=== PATIENT | female | born 1965 | race Two or more races ===

== ENCOUNTER 2021-01-22 09:44 | Outpatient (REF) | payer MEDICAID, SELFPAY ==
--- NOTE | ~2021-01-22 | MM_ITS ---
EXAMINATION: MM DIAGNOSTIC DIGITAL BREAST TOMOSYNTHESIS, BILATERAL US DIAGNOSTIC ULTRASOUND BREAST, RIGHT CLINICAL INFORMATION: 55-year-old with recent pain posterior outer right breast. Palpable fullness noted at clinical exam. No palpable mass noted by patient. No discharge. Patient notes prior history fibrocystic changes. Due for yearly. The lifetime risk of breast cancer based on the Tyrer-Cuzick Model is 5%. COMPARISON: Mammography: 07/13/2019, 07/09/2018, 07/02/2017 TECHNIQUE: Digital breast tomosynthesis is performed in both the craniocaudal and mediolateral oblique views along with computer-aided detection (CAD). Synthesized 2D images are generated from the tomosynthesis. Ultrasound right breast is targeted to the areas of clinical concern 7:00 through 12:00 position. Grayscale imaging and color Doppler are performed without and with harmonics. FINDINGS: The breasts are heterogeneously dense, which may obscure small masses (ACR BI-RADS breast composition Category c). There are no significant masses, abnormal calcifications, or other abnormalities. There is no skin thickening or coarsening of the Chucky's ligaments. There are scattered predominantly dermal calcifications seen bilateral upper inner breasts. Ultrasound demonstrates no cystic or solid mass. There is no duct ectasia: No skin thickening or edema tracking in the soft tissue planes. No hyperemia on color Doppler. Results are discussed with the patient at time of visit, using an pick pulling machine operator. MM/MM tomosynthesis diagnostic BI IMPRESSION: 1. No mammographic evidence of malignancy or inflammatory changes. 2. Unremarkable targeted right breast ultrasound. ASSESSMENT: BI-RADS 2: Benign RECOMMENDATION: 1. Patient's breast pain should be managed based on the clinical impression. If there is still concern for clinically palpable finding, further evaluation may be considered with surgical consult. Decision to proceed with biopsy should be based on clinical grounds and degree of clinical concern. 2. Otherwise, routine annual screening mammography. This patient's information was entered into a reminder system with a target due date for their next mammogram.
== END 2021-01-22 09:45 | disposition home or self-care (01) ==
LOC: HO.MAMMO 09:44
PROVIDERS: Visit Provider Emergency Medicine
DX: N63.11 Unspecified lump in the right breast, upper outer quadrant (principal)
CPT/HCPCS: 76642; 77062; 77066

== ENCOUNTER 2021-03-14 16:27 | Outpatient (REF) | payer MEDICAID, SELFPAY ==
--- NOTE | ~2021-03-14 | XR_ITS ---
EXAMINATION: XR KNEE, LEFT CLINICAL INFORMATION: Pain and swelling COMPARISON: Previous x-ray June 2020 TECHNIQUE: Four views of the left knee. FINDINGS: Bone alignment is normal. No fracture or dislocation is seen. The joint spaces are normal. There is a joint effusion. XR/XR knee LT 4V IMPRESSION: Joint effusion otherwise unremarkable exam.
== END 2021-03-14 16:28 | disposition home or self-care (01) ==
LOC: HO.XRAY 16:27
PROVIDERS: PCP Internal Medicine Geriatric Medicine; Visit Provider Emergency Medicine
DX: M25.562 Pain in left knee (principal); M25.462 Effusion, left knee
CPT/HCPCS: 73564

== ENCOUNTER → 2021-03-30 10:49 | Outpatient (BNVA) | payer MEDICAID, SELFPAY | PROVIDERS: Visit Provider Orthopaedic Surgery | DX: M22.2X2 Patellofemoral disorders, left knee (principal); M17.12 Unilateral primary osteoarthritis, left knee | CPT/HCPCS: 99212 ==

== ENCOUNTER 2021-06-26 10:33 | Outpatient (REF) | payer MEDICAID, SELFPAY ==
[2021-06-26 11:53] LABS: Hematocrit 38.4 % (37-47); Mean Corpuscular HGB Conc 31.3 g/dl (31.0-35.0); Mean Corpuscular Hemoglobin 28.2 pg (27.0-33.0); Mean Corpuscular Volume 90.1 fL (80-98); Platelet Count 226 X10*3/uL (160-400); Red Blood Count 4.26 X10*6/uL (4.20-5.50); Red Cell Distribution Width 12.4 % (11.0-16.0); White Blood Count 6.8 X10*3/uL (4.8-10.8)
[2021-06-26 12:20] LABS: Alanine Aminotransferase 15 U/L (0-31); Albumin Level 4.3 g/dL (3.5-5.0); Alkaline Phosphatase 114 U/L (39-117); Anion Gap 12 (12-20); Aspartate Amino Transferase 12 U/L (5-31); Bilirubin Total 0.5 mg/dL (0.0-1.0); Blood Urea Nitrogen 17 mg/dL (9-16); Calcium 9.8 mg/dL (8.4-10.2); Carbon Dioxide 27 mmol/L (22-29); Chloride 106 mmol/L (96-108); Cholesterol 194 mg/dL; Estimated Glomerular Filt Rate > 60; Glucose Random 96 mg/dL (60-115); HDL Cholesterol 57 mg/dL; LDL Cholesterol Calculated 123 mg/dl; Potassium 4.7 mmol/L (3.3-5.1); Sodium 140 mmol/L (135-145); Total Protein 7.3 g/dL (6.5-8.0); Triglycerides 74 mg/dL
[2021-06-26 12:32] LABS: TSH reflex Free T4 4.11 uIU/mL (0.32-4.0)
[2021-06-26 13:26] LABS: Free T4 (Free Thyroxine) 1.05 ng/dL (0.71-1.85)
== END 2021-06-26 10:34 | disposition home or self-care (01) ==
LOC: HO.LAB 10:33
PROVIDERS: PCP Internal Medicine Geriatric Medicine; Visit Provider Internal Medicine Geriatric Medicine
DX: Z00.00 Encounter for general adult medical examination without abnormal findings (principal); Z13.1 Encounter for screening for diabetes mellitus; Z13.220 Encounter for screening for lipoid disorders; F41.9 Anxiety disorder, unspecified
CPT/HCPCS: 36415; 80053; 80061; 84439; 84443; 85027

== ENCOUNTER 2021-10-15 15:37 | Emergency (ER) | payer MEDICAID, SELFPAY ==
--- NOTE | 2021-10-15 | ECG_ITS ---
Test Reason : CHEST PAIN Blood Pressure : / mmHG Vent. Rate : 054 BPM Atrial Rate : 054 BPM P-R Int : 162 ms QRS Dur : 096 ms QT Int : 418 ms P-R-T Axes : 039 037 012 degrees QTc Int : 396 ms Sinus bradycardia Otherwise normal ECG When compared with ECG of 21-JUL-2020 19:40, No significant change was found Heart rate has decreased Referred By: Generic ED Physician Electronically Signed By:AVI ALONSO MD
[2021-10-15 15:55] VITALS: BP 154/94; BP 157/85; PULSE 55; PULSE 60; RESP 18; O2SAT 100; O2SAT 99; BMI 31.8
== END 2021-10-15 16:45 | disposition left against medical advice (07) ==
PROVIDERS: Emergency Provider Emergency Medicine
DX: R07.9 Chest pain, unspecified (principal); M79.604 Pain in right leg; R00.0 Tachycardia, unspecified
CPT/HCPCS: 93005; 99283

== ENCOUNTER 2022-02-05 11:12 | Outpatient (REF) | payer MEDICAID, SELFPAY ==
--- NOTE | ~2022-02-05 | MM_ITS ---
EXAMINATION: MM SCREENING DIGITAL BREAST TOMOSYNTHESIS, BILATERAL CLINICAL INFORMATION: Screening. Asymptomatic. The lifetime risk of breast cancer based on the Tyrer-Cuzick Model is 5.3%. COMPARISON: Mammography: January 22, 2021 and studies dating back to May 26, 2012 TECHNIQUE: Digital breast tomosynthesis is performed in both the craniocaudal and mediolateral oblique views along with computer-aided detection (CAD). Synthesized 2D images are generated from the tomosynthesis. FINDINGS: The breasts are heterogeneously dense, which may obscure small masses (ACR BI-RADS breast composition Category c). There are no new significant masses, abnormal calcifications, or other abnormalities. There is multiplicity and bilaterality of similar calcifications. MM/MM tomosynthesis screening BI IMPRESSION: There are no significant changes from prior study. ASSESSMENT: BI-RADS 1: Negative RECOMMENDATION: Routine annual mammography screening. This patient's information was entered into a reminder system with a target due date for their next mammogram.
== END 2022-02-05 11:13 | disposition home or self-care (01) ==
LOC: HO.MAMMO 11:12
PROVIDERS: Visit Provider Internal Medicine Geriatric Medicine
DX: Z12.31 Encounter for screening mammogram for malignant neoplasm of breast (principal)
CPT/HCPCS: 77063; 77067

== ENCOUNTER 2022-04-26 15:42 | Outpatient (REF) | payer MEDICAID, SELFPAY ==
--- NOTE | ~2022-04-26 | MR_ITS ---
EXAMINATION: MR KNEE WITHOUT CONTRAST, LEFT CLINICAL INFORMATION: Lateral/anterior left knee pain. Swelling. COMPARISON: Most recent left knee radiographs dated 03/14/2021. TECHNIQUE: MRI of the knee without contrast was performed using routine sequences on a high-field scanner. FINDINGS: MENISCI: Medial Meniscus: Complex tearing of the posterior meniscal body with a medially displaced meniscal flap measuring up to 1.9 cm within the medial meniscotibial recess. Tearing extends to the posterior horn and root where there is a dominant oblique radial component. The posterior root is significantly thickened and irregular. Lateral Meniscus: Intact. LIGAMENTS: Cruciate: Intact. Collateral: Intact. EXTENSOR MECHANISM: Intact. ARTICULAR CARTILAGE/BONE: Patellofemoral Compartment: Patellar median ridge and medial patellar facet articular cartilage thinning with mild signal heterogeneity. Central and medial trochlear articular cartilage signal heterogeneity. Tiny marginal osteophytes. Medial Compartment: Weightbearing articular cartilage thinning and signal heterogeneity with minimal subchondral cystic change. Small marginal osteophytes. Lateral Compartment: Mild articular cartilage thinning with tiny marginal osteophytes. JOINT FLUID AND BURSAE: [id number] joint effusion with synovitis. Trace Conti's cyst. MR/MR knee LT wo con IMPRESSION: 1. Complex tearing of the medial meniscal body with an inferiorly displaced meniscal flap measuring 1.9 cm in AP dimension. Tearing extends to the posterior horn and root with a dominant oblique inner margin radial component. The posterior root is significantly thickened and irregular. 2. [id number] medial as well as mild patellofemoral and lateral compartment osteoarthritis. [id number] joint effusion and trace Conti's cyst with synovitis.
== END 2022-04-26 15:43 | disposition home or self-care (01) ==
LOC: HO.MRI 15:42
PROVIDERS: Visit Provider Emergency Medicine
DX: M25.562 Pain in left knee (principal)
CPT/HCPCS: 73721

== ENCOUNTER → 2022-05-16 14:52 | Outpatient (BNVA) | payer MEDICAID, SELFPAY | PROVIDERS: PCP Internal Medicine Geriatric Medicine; Visit Provider Orthopaedic Surgery | DX: S83.242A Other tear of medial meniscus, current injury, left knee, initial encounter (principal); M17.12 Unilateral primary osteoarthritis, left knee | CPT/HCPCS: 99212 ==

== ENCOUNTER 2022-05-21 17:13 | Outpatient (REF) | payer MEDICAID, SELFPAY ==
--- NOTE | ~2022-05-21 | XR_ITS ---
EXAMINATION: XR RIBS, BILATERAL CLINICAL INFORMATION: Pleurodynia COMPARISON: None TECHNIQUE: 3 views of the bilateral ribs were obtained. FINDINGS: Lungs are clear. No consolidation, pneumothorax, or pleural effusion. The cardiomediastinal silhouette and pulmonary vasculature are normal. Osseous structures are unremarkable. Ribs are intact. No fractures are identified. XR/XR ribs BI min 4V w [id number] IMPRESSION: Unremarkable chest exam. The ribs are unremarkable.
== END 2022-05-21 17:14 | disposition home or self-care (01) ==
LOC: HO.XRAY 17:13
PROVIDERS: Absent Provider Internal Medicine Geriatric Medicine; PCP Internal Medicine Geriatric Medicine; Visit Provider Emergency Medicine
DX: R07.81 Pleurodynia (principal)
CPT/HCPCS: 71111

== ENCOUNTER 2023-04-03 15:41 | Outpatient (REF) | payer MEDICAID, SELFPAY ==
--- NOTE | ~2023-04-03 | XR_ITS ---
EXAMINATION: RIGHT WRIST CLINICAL INFORMATION: Injury 7 days ago COMPARISON: None available. TECHNIQUE: 3 views of the right wrist FINDINGS: There is some minimal sclerotic change in the distal left radius laterally which may be from remote trauma. No acute fracture, swelling or dislocation is seen. XR/XR wrist RT w scaphoid IMPRESSION: No evidence of an acute osseous injury.
== END 2023-04-03 15:42 | disposition home or self-care (01) ==
LOC: HO.HHCX 15:41
PROVIDERS: Visit Provider Registered Nurse
DX: M25.531 Pain in right wrist (principal)
CPT/HCPCS: 73110

== ENCOUNTER → 2023-04-28 11:30 | Outpatient (BNVA) | payer MEDICAID, SELFPAY | PROVIDERS: PCP Internal Medicine Geriatric Medicine; Visit Provider Orthopaedic Surgery | DX: M17.12 Unilateral primary osteoarthritis, left knee (principal); S83.242A Other tear of medial meniscus, current injury, left knee, initial encounter; X58.XXXA Exposure to other specified factors, initial encounter; Y93.9 Activity, unspecified; Y92.9 Unspecified place or not applicable; Y99.9 Unspecified external cause status | CPT/HCPCS: 20610; 99212; J1100 ==

== ENCOUNTER 2023-04-28 13:19 | Emergency (ER) | payer MEDICAID, SELFPAY ==
--- NOTE | 2023-04-28 13:28 | ECG_ITS ---
Test Reason : Weakness Blood Pressure : / mmHG Vent. Rate : 062 BPM Atrial Rate : 062 BPM P-R Int : 152 ms QRS Dur : 094 ms QT Int : 410 ms P-R-T Axes : 038 046 034 degrees QTc Int : 416 ms Normal sinus rhythm Normal ECG When compared to the previous EKG of No significant changes seen Referred By: Hiral Lares Electronically Signed By:TREVIN WU MD
[2023-04-28 13:40] VITALS: BP 143/83; PULSE 117
--- NOTE | 2023-04-28 13:41 | ED.GENADULT ---
HPI - General Adult General Chief complaint: Weakness Stated complaint: WEAK/LATHARGIC POST CORTISONE SHOT Time Seen by Provider: 04/28/23 13:26 Source: patient Mode of arrival: EMS Limitations: no limitations History of Present Illness HPI narrative: Patient comes to the emergency room complaining of weakness, lethargic after she had a joint injection earlier today. Patient complaining of pain in the left knee where she was injected. Denies chest pain or shortness of breath, no nausea vomiting or diarrhea, no dizziness. Related Data Previous Rx's Medication Instructions Recorded ibuprofen 600 mg tablet 600 mg PO Q8H PRN pain #90 tabs 04/28/23 Allergies Allergy/AdvReac Type Severity Reaction Status Date / Time No Known Allergies Allergy Verified 05/16/22 15:04 Review of Systems Review of Systems: Constitutional : No Weight loss, No Fever, No Chills, No Night Sweats, lining of fatigue and generalized malaise that started after a joint injection ENT/Mouth : No Hearing loss, No Ear Pain, No Nasal Congestion, No Sinus Pain, No Hoarseness, No sore throat, No Rhinorrhea, No Swallowing Difficulty Eyes: No Eye Pain, No Swelling, No Redness, No Foreign Body, No Discharge, No Vision Changes Cardiovascular : No Chest Pain, No SOB, No Dyspnea on Exertion, No Orthopnea, No Edema, No Palpitations Respiratory : No Cough, No Sputum, No Wheezing, No Smoke Exposure, No Dyspnea Gastrointestinal : No Nausea, No Vomiting, No Diarrhea, No Constipation, No abdominal Pain, No Hematochezia, No Melena Genitourinary : no irregular bleeding, No Dysuria, No Urinary Frequency, No Hematuria, No Urinary Incontinence, No Urgency, No Flank Pain, No Urinary Flow Changes, No Hesitancy Musculoskeletal : Complaining of left knee pain No Myalgias, No Joint Swelling Skin : No Skin Lesions, No rash Neuro : No Weakness, No Numbness, No Paresthesias, No Loss of Consciousness, No Dizziness, No Headache Psych : No Anxiety/Panic, No Depression, No SI/HI/AH/VH, No Social Issues, Heme/Lymph: No Bruising, No Bleeding,No Lymphadenopathy Endocrine : No Polyuria, No Polydipsia, No Temperature Intolerance PMFSH Past Medical History Medical History Arthritis of left knee Patellofemoral syndrome, left Surgical History H/O breast biopsy History of History of hernia surgery Social History Social History Alcohol intake: never Smoked in Last 30 Days: No Use of substances other than those prescribed or required for medical reasons: No Advance Directives: No Advance Directives Information Provided: Yes Current occupational status: employed Current occupation: right handed Physical Exam ED Vital Signs: Vital Signs - 24 hr 04/28/23 13:40 04/28/23 13:43 04/28/23 13:47 Temperature 97.6 F 98.6 F Pulse Rate 117 H 117 H 117 H Respiratory Rate 18 18 Blood Pressure 143/83 H 143/83 H 143/83 H Pulse Oximetry 97 98 Oxygen Delivery Method Room Air Room Air 04/28/23 13:54 04/28/23 13:55 04/28/23 13:55 Temperature Pulse Rate 93 87 91 Respiratory Rate Blood Pressure 132/72 141/76 H 144/71 H Pulse Oximetry Oxygen Delivery Method BMI result Body Mass Index 31.2 Const Other: Appearance: Alert. Oriented X3. No acute distress. Eyes: Pupils equal, round and reactive to light. ENT: Pharynx normal. Neck: Normal inspection. Neck supple. No lymph nodes noted. No crepitus CVS: Normal heart rate and rhythm. Pulses normal. Normal S1 and S2 Respiratory: No respiratory distress. Breath sounds normal. No Wheezing. No rales Abdomen: Soft and nontender. No rigidity. No distention. Skin: Skin warm and dry. Normal skin color. Normal skin turgor. Extremities: Complaining of left knee joint pain Neuro: Oriented X 3. No motor deficit. No sensory deficit. Moving all extremities. No slurred speech. CN 2 through 12 grossly intact Psych: calm, cooperative Course Course Course Narrative: -I discussed the patient with Dr. Lincoln. Patient received 1 mL of dexamethasone, which is pretty low dose. Patient complained today at the orthopedics office of ongoing left knee pain but only at night. Dr. Lincoln informed manner patient was crying a lot but did not have any pain. -also patient's labs are pending. At this time, no need for imaging -the joint itself looks clean, no erythema, no swelling, no suspicion for septic joint, no concern for joint effusion -after spending some time talking to the patient, I suspect the patient has underlying depression Medical Decision Making Medical Decision Making [facility] Narrative: -all stations labs are normal -orthostatic vitals are normal -I spoke with the patient and her regarding possible depression. The patient and her admitted the patient has been depressed, approximately 2 months ago the patient is brother and she has not been doing well since then. Patient was seen in the clinic 2 times in [facility] for similar issues, no diagnosis were made. Patient returned 2 weeks ago after spending a month's in [facility]. -patient denies suicidal or homicidal ideation -Behavioral Health consult/evaluation was offered, patient the respectfully declined, they will follow up with their primary care physician -steroid induced psychosis is not suspected Lab Data [facility] Lab Attestation statement: I reviewed the patient's lab results. 04/28/23 14:07 04/28/23 14:07 Labs: Lab Results 04/28/23 04/28/23 04/28/23 Range/Units 14:07 14:07 14:07 WBC 6.6 (4.8-10.8) X10*3/uL RBC 4.32 (4.20-5.50) X10*6/uL Hgb 12.2 (12.0-16.0) g/dl Hct 38.9 (37.0-47.0) % MCV 90.0 (80.0-98.0) fL MCH 28.2 (27.0-33.0) pg MCHC 31.4 (31.0-35.0) g/dl RDW 12.1 (11.0-16.0) % Plt Count 233 (160-400) X10*3/uL MPV 12.1 (9.4-12.3) fL Immature Gran % (Auto) 0.3 (0.0-0.4) % Neut % (Auto) 79.2 H (45-73) % Lymph % (Auto) 16.5 L (20-40) % [place] % (Auto) 2.9 (2-11) % Eos % (Auto) 0.5 (0-4) % Baso % (Auto) 0.6 (0-2) % Lymph # (Auto) 1.1 L (1.2-4.9) X10*3/uL [place] # (Auto) 0.2 (0.1-1.2) X10*3/uL Eos # (Auto) 0.0 (0.0-0.4) X10*3/uL Baso # (Auto) 0.0 (0.0-0.2) X10*3/uL Abs Immat Gran (auto) 0.02 (0.00-0.03) X10*3/uL Absolute Neuts (auto) 5.2 (2.0-8.3) x10*3/uL Absolute Nucleated RBC 0.000 (0.0-0.012) X10*3/uL Nucleated RBC % (auto) 0.0 (0.0-0.2) /100WBC Sodium 141 (135-145) mmol/L Potassium 4.7 (3.3-5.1) mmol/L Chloride 107 (96-108) mmol/L Carbon Dioxide 25 (22-29) mmol/L Anion Gap 14 (12-20) BUN 13 (9-16) mg/dL Creatinine 0.87 (0.5-1.4) mg/dL Estim Creat Clear Calc 66.0 Estimated GFR > 60 Random Glucose 105 (60-115) mg/dL Calcium 10.0 (8.4-10.2) mg/dL Total Bilirubin 0.8 (0.0-1.0) mg/dL Direct Bilirubin 0.2 (0.0-0.5) mg/dL AST 16 (5-31) U/L ALT 16 (0-31) U/L Alkaline Phosphatase 112 (39-117) U/L Troponin I High Sens < 2.7 (<3.5-17.0) ng/L Total Protein 7.4 (6.5-8.0) g/dL Albumin 4.4 (3.5-5.0) g/dL Urine Color Urine Appearance Urine pH (5.0-9.0) Ur Specific [place] (1.005-1.025) Urine Protein (Neg-Trace) mg/dL Urine Glucose (UA) (Negative) mg/dL Urine Ketones (Negative) mg/dL Urine Blood (Negative) Urine Nitrite (Negative) Ur Leukocyte Esterase (Negative) Urine Opiates Screen (Not Detect) Urine Fentanyl Screen (Not Detect) Ur Barbiturates Screen (Not Detect) Ur Phencyclidine Scrn (Not Detect) Ur Amphetamines Screen (Not Detect) U Benzodiazepines Scrn (Not Detect) Urine Cocaine Screen (Not Detect) U Marijuana (THC) Screen (Not Detect) 04/28/23 04/28/23 Range/Units 14:07 14:07 WBC (4.8-10.8) X10*3/uL RBC (4.20-5.50) X10*6/uL Hgb (12.0-16.0) g/dl Hct (37.0-47.0) % MCV (80.0-98.0) fL MCH (27.0-33.0) pg MCHC (31.0-35.0) g/dl RDW (11.0-16.0) % Plt Count (160-400) X10*3/uL MPV (9.4-12.3) fL Immature Gran % (Auto) (0.0-0.4) % Neut % (Auto) (45-73) % Lymph % (Auto) (20-40) % [place] % (Auto) (2-11) % Eos % (Auto) (0-4) % Baso % (Auto) (0-2) % Lymph # (Auto) (1.2-4.9) X10*3/uL [place] # (Auto) (0.1-1.2) X10*3/uL Eos # (Auto) (0.0-0.4) X10*3/uL Baso # (Auto) (0.0-0.2) X10*3/uL Abs Immat Gran (auto) (0.00-0.03) X10*3/uL Absolute Neuts (auto) (2.0-8.3) x10*3/uL Absolute Nucleated RBC (0.0-0.012) X10*3/uL Nucleated RBC % (auto) (0.0-0.2) /100WBC Sodium (135-145) mmol/L Potassium (3.3-5.1) mmol/L Chloride (96-108) mmol/L Carbon Dioxide (22-29) mmol/L Anion Gap (12-20) BUN (9-16) mg/dL Creatinine (0.5-1.4) mg/dL Estim Creat Clear Calc Estimated GFR Random Glucose (60-115) mg/dL Calcium (8.4-10.2) mg/dL Total Bilirubin (0.0-1.0) mg/dL Direct Bilirubin (0.0-0.5) mg/dL AST (5-31) U/L ALT (0-31) U/L Alkaline Phosphatase (39-117) U/L Troponin I High Sens (<3.5-17.0) ng/L Total Protein (6.5-8.0) g/dL Albumin (3.5-5.0) g/dL Urine Color Yellow Urine Appearance Clear Urine pH 6.0 (5.0-9.0) Ur Specific [place] 1.010 (1.005-1.025) Urine Protein Negative (Neg-Trace) mg/dL Urine Glucose (UA) Negative (Negative) mg/dL Urine Ketones Negative (Negative) mg/dL Urine Blood Negative (Negative) Urine Nitrite Negative (Negative) Ur Leukocyte Esterase Negative (Negative) Urine Opiates Screen Not Detected (Not Detect) Urine Fentanyl Screen Not Detected (Not Detect) Ur Barbiturates Screen Not Detected (Not Detect) Ur Phencyclidine Scrn Not Detected (Not Detect) Ur Amphetamines Screen Not Detected (Not Detect) U Benzodiazepines Scrn Not Detected (Not Detect) Urine Cocaine Screen Not Detected (Not Detect) U Marijuana (THC) Screen Not Detected (Not Detect) Discharge Plan Discharge Clinical Impression: Chronic pain of left knee, Complicated grieving Patient Disposition: Home, Self-Care Instructions: Arthralgia (ED) Additional Instructions: Please follow-up with your primary care physician tomorrow. If you have any worsening or new symptoms, please return to the emergency room or call 911 Prescriptions: No Action ibuprofen 600 mg tablet 600 mg PO Q8H PRN (Reason: pain) Qty: 90 0RF
[2023-04-28 13:43] VITALS: BP 143/83; PULSE 117; RESP 18; TEMP 36.4; O2SAT 97; BMI 31.2
[2023-04-28 13:47] VITALS: BP 143/83; PULSE 117; RESP 18; TEMP 37; O2SAT 98
--- NOTE | 2023-04-28 13:49 | PC.NURSE ---
Alert and oriented, mostly citizen of [place] speaking, assistant to the vice president used. Patient states that today she recieved a cortisone injection at her [facility] surgeons office in her left knee. States that she was fine and walked out of the office but on the way home in the car with her she passed out. States she doesnt know if she lost consciousness or not. Denies chest pain, sob, or headache, States at the time of event she was nauseous but not right now. States has no med allergies that she is aware of and has cortisone injections before and this has never happened. States dr mixed two medications together so thinks it was the 2nd medication.
[2023-04-28 13:54] VITALS: BP 132/72; PULSE 93
[2023-04-28 13:55] VITALS: BP 141/76; BP 144/71; PULSE 87; PULSE 91
[2023-04-28 14:16] LABS: MANUAL DIFF FLAG NO
[2023-04-28 14:17] LABS: Basophils Percent Auto 0.6 % (0-2); Eosinophils Percent Auto 0.5 % (0-4); Hematocrit 38.9 % (37.0-47.0); Hemoglobin 12.2 g/dl (12.0-16.0); Imm Gran Abs Auto 0.02 X10*3/uL (0.00-0.03); Imm Gran Pct Auto 0.3 % (0.0-0.4); Lymphocytes Absolute Auto 1.1 X10*3/uL (1.2-4.9); Lymphocytes Percent Auto 16.5 % (20-40); Mean Corpuscular HGB Conc 31.4 g/dl (31.0-35.0); Mean Corpuscular Hemoglobin 28.2 pg (27.0-33.0); Mean Platelet Volume 12.1 fL (9.4-12.3); Monocytes Absolute Auto 0.2 X10*3/uL (0.1-1.2); Monocytes Percent Auto 2.9 % (2-11); Neutrophils Absolute Auto 5.2 x10*3/uL (2.0-8.3); Neutrophils Percent Auto 79.2 % (45-73); Platelet Count 233 X10*3/uL (160-400); Red Blood Count 4.32 X10*6/uL (4.20-5.50); Red Cell Distribution Width 12.1 % (11.0-16.0); White Blood Count 6.6 X10*3/uL (4.8-10.8)
[2023-04-28 14:26] LABS: Appearance Urine Clear; Color Urine Yellow; Glucose Urine UA Negative (Negative); Leukocyte Esterase Urine Negative (Negative); Nitrite Urine Negative (Negative); Urine Blood Negative (Negative); Urine Ketones Negative (Negative); Urine Protein Negative (Neg-Trace)
[2023-04-28 14:27] LABS: Amphetamine Screen Urine Not Detected (Not Detect); Barbiturates, Urine Not Detected (Not Detect); Benzodiazepines Screen Urine Not Detected (Not Detect); Cannabinoid Screen Urine Not Detected (Not Detect); Cocaine Screen Urine Not Detected (Not Detect); Fentanyl, urine Not Detected (Not Detect); Opiate Screen Urine Not Detected (Not Detect); Phencyclidine Screen Urine Not Detected (Not Detect)
[2023-04-28 14:37] LABS: Alanine Aminotransferase 16 U/L (0-31); Albumin Level 4.4 g/dL (3.5-5.0); Alkaline Phosphatase 112 U/L (39-117); Anion Gap 14 (12-20); Aspartate Amino Transferase 16 U/L (5-31); Bilirubin Direct 0.2 mg/dL (0.0-0.5); Bilirubin Total 0.8 mg/dL (0.0-1.0); Blood Urea Nitrogen 13 mg/dL (9-16); Carbon Dioxide 25 mmol/L (22-29); Chloride 107 mmol/L (96-108); Estimated Glomerular Filt Rate > 60; Glucose Random 105 mg/dL (60-115); Potassium 4.7 mmol/L (3.3-5.1); Sodium 141 mmol/L (135-145); Total Protein 7.4 g/dL (6.5-8.0)
[2023-04-28 14:40] LABS: Troponin-I High Sensitivity < 2.7 ng/L (<3.5-17.0)
--- NOTE | 2023-04-28 14:59 | PC.NURSE ---
Reviewed discharge instructions with patient and . States she is feeling better and is able to ambulate.
== END 2023-04-28 14:59 | disposition home or self-care (01) ==
PROVIDERS: Emergency Provider Emergency Medicine
DX: M25.562 Pain in left knee (principal); G89.29 Other chronic pain; R53.83 Other fatigue; F32.A Depression, unspecified
CPT/HCPCS: 36415; 80048; 80076; 80307; 81003; 84484; 85025; 93005; 99283; 99284

== ENCOUNTER 2023-05-09 11:52 | Outpatient (REF) | payer MEDICAID, SELFPAY ==
--- NOTE | ~2023-05-09 | MM_ITS ---
EXAMINATION: MM SCREENING DIGITAL BREAST TOMOSYNTHESIS, BILATERAL CLINICAL INFORMATION: Screening. Asymptomatic. The lifetime risk of breast cancer based on the Tyrer-Cuzick Model is 5%. COMPARISON: Mammography: 02/05/2022, 01/22/2021, 07/13/2019 TECHNIQUE: Digital breast tomosynthesis is performed in both the craniocaudal and mediolateral oblique views along with computer-aided detection (CAD). Synthesized 2D images are generated from the tomosynthesis. FINDINGS: The breasts are heterogeneously dense, which may obscure small masses (ACR BI-RADS breast composition Category c). There are no significant masses, abnormal calcifications, or other abnormalities. Parenchymal pattern is similar to prior exams and there is no developing density or interval architectural abnormality. The axilla and skin contours are unremarkable. MM/MM tomosynthesis screening BI IMPRESSION: No mammographic evidence of malignancy. ASSESSMENT: BI-RADS 1: Negative RECOMMENDATION: Routine annual mammography screening. This patient's information was entered into a reminder system with a target due date for their next mammogram.
== END 2023-05-09 11:53 | disposition home or self-care (01) ==
LOC: HO.MAMMO 11:52
PROVIDERS: PCP Internal Medicine Geriatric Medicine; Visit Provider Internal Medicine Geriatric Medicine
DX: Z12.31 Encounter for screening mammogram for malignant neoplasm of breast (principal)
CPT/HCPCS: 77063; 77067

== ENCOUNTER 2023-07-12 13:28 | Emergency (ER) | payer MEDICAID, SELFPAY ==
--- NOTE | 2023-07-12 | ECG_ITS ---
Test Reason : CP Blood Pressure : / mmHG Vent. Rate : 090 BPM Atrial Rate : 090 BPM P-R Int : 136 ms QRS Dur : 082 ms QT Int : 356 ms P-R-T Axes : 022 028 024 degrees QTc Int : 435 ms Normal sinus rhythm Normal ECG When compared with ECG of 28-APR-2023 13:46, No significant change was found Referred By: Generic ED Physician Electronically Signed By:SCOTT COLE
[2023-07-12 13:37] VITALS: BP 127/72; PULSE 97; RESP 18; TEMP 37.2; O2SAT 94; BMI 31.3
--- NOTE | 2023-07-12 13:51 | ED_ITS ---
HPI - General Adult General Chief complaint: General Medical Stated complaint: chest pain Time Seen by Provider: 07/12/23 13:51 Source: patient Mode of arrival: ambulatory Limitations: language barrier History of Present Illness HPI narrative: Patient is a 57-year-old South African-speaking female presenting to the emergency department with complaint of, headache, sore throat, sweats/chills, nonproductive cough, palpitations since last night. She denies any chest pain or difficulty breathing. Reports taking Excedrin last night and this morning. States has a young grandchild at home and is specifically requesting COVID testing. Reports she is up-to-date on all her COVID vaccinations. Denies any abdominal pain, nausea, vomiting, diarrhea, or constipation. MD complaint: Sore throat, fever Onset (ago): hour(s) Quality: burning Pain Consistency: constant Associated symptoms: cough, fever/chills and headaches Treatments prior to arrival: other (Excedrin) Related Data Previous Rx's Medication Instructions Recorded ibuprofen 600 mg tablet 600 mg PO Q8H PRN pain #90 tabs 04/28/23 Allergies Allergy/AdvReac Type Severity Reaction Status Date / Time No Known Allergies Allergy Verified 05/16/22 15:04 Review of Systems Review of Systems: As per HPI. Yes all other systems are reviewed and are negative Constitutional: Constitutional: Reports as per HPI [facility] Past Medical History Medical History Arthritis of left knee Patellofemoral syndrome, left Surgical History H/O breast biopsy History of History of hernia surgery Social History Social History Alcohol intake: never Advance Directives: No Advance Directives Information Provided: No Current occupational status: employed Current occupation: right handed Physical Exam ED Vital Signs: Vital Signs - 24 hr 07/12/23 13:37 Temperature 99.0 F Pulse Rate 97 Respiratory Rate 18 Blood Pressure 127/72 Pulse Oximetry 94 Oxygen Delivery Method Room Air BMI result Body Mass Index 31.3 Vital signs have been reviewed and appear to be correct. Blood pressure normal. Heart rate normal. Respiratory rate normal. Temperature normal. Oxygen saturation normal. Const General: cooperative, healthy appearing and no acute distress Orientation/consciousness: oriented to person, oriented to place, oriented to time and patient oriented x3 Limitations: no limitations HENMT Head: Yes normocephalic and Yes atraumatic Ears: external ears normal and TM's normal bilaterally General nose exam: Normal external nose present Face and sinus: Yes face symmetric Mouth: oropharynx normal and moist mucous membranes Throat: Yes posterior oropharynx normal, Yes uvula midline and No uvular edema Eyes Pupils: Equal, round and reactive pupils present Neck Neck: Yes normal visual inspection and Yes supple Resp Effort & Inspection: normal respiratory effort and able to speak in complete sentences Auscultation: clear to auscultation bilaterally Cardio Rate: regular rate Rhythm: regular rhythm Heart sounds: S1 normal heart sound present and S2 normal heart sound present GI Palpation (GI): Soft to palpation and nontender Auscultation: normoactive bowel sounds General: Yes no CVA tenderness Back/Spine/Pelvis Back: no CVA tenderness Skin General skin exam: elasticity normal and turgor normal Neuro General: oriented to person, oriented to place, oriented to time, patient oriented x3, moves all extremities, no focal motor deficits and CN's II-XI intact bilaterally Cranial nerves: Yes Equal, round and reactive pupils present Cognition (Neuro): normal cognition Extrem General: Yes full ROM, Yes no pedal edema and Yes no calf tenderness Psych Mental Status: mental status grossly normal Affect: normal affect Thought process: Normal thought process present Medical Decision Making Medical Decision Making MDM Narrative: Patient is a 57-year-old South African-speaking female presenting to the emergency department with complaint of, headache, sore throat, sweats/chills, nonproductive cough, palpitations since last night. On exam patient is awake, A+Ox3, VS WNL, afebrile, normal neurological exam without focal deficits, TMs normal bilaterally, no erythema or edema to posterior oropharynx, LS clear throughout. Given reported symptoms and physical exam findings, initial differential includes Covid, influenza, strep pharyngitis, other viral illness. Covid swab positive, patient updated on results. Discussed treatment with Paxlovid which patient declined. Advised patient she should isolate at home for another four days and continue to wear mask for 5 days after that. Return precautions discussed at bedside. Patient verbalized understanding of and agreement with plan. Differential Diagnosis Differential Diagnoses: The differential diagnosis associated with the presentation includes As per [facility] Lab Data [facility] Lab Attestation statement: I reviewed the patient's lab results. As per [facility] Labs: Lab Results 07/12/23 07/12/23 07/12/23 Range/Units 14:02 14:02 14:02 COVID-19 (MAYKEL) Positive A (Negative) COVID-19 Clin Com See Note Influenza Type A (ZENA) Negative (Negative) Influenza Type B (ZENA) Negative (Negative) Influenza A & B Note See Note S. pyogenes GrpA ZENA Negative (Negative) Independent Interpretation I performed an independent interpretation of an: EKG Interpretation: EKG: normal sinus rhythm, rate 90 bpm, normal TX and QT intervals, no evidence of STEMI External Record Review External record reviewed: Inpatient record, Office record and Outpatient record Prescription Management I considered prescription management with: Antiviral (patient declined) Discharge Plan Discharge Clinical Impression: COVID-19 Patient Disposition: Home, Self-Care Instructions: COVID-19 (Coronavirus Disease 2019) (ED) Additional Instructions: You are evaluated in the emergency department today for sore throat, cough, fever. Your COVID test was resulted as positive. You should continue to isolate at home for another 4 days. You should continue to wear mask for 5 days after that. You were offered treatment with Paxlovid which you declined. If you change your mind within the next 48 hours, contact your primary care provider to discuss this treatment. Return to the emergency department with worsening shortness of breath, chest pain, fever that does not improve with Tylenol or ibuprofen, persistent vomiting, or any other concerning symptoms. You should follow-up with your primary care provider. You should use Tylenol 650mg every 6 hours or ibuprofen 600 mg every 6 hours as needed for fever or discomfort. Prescriptions: No Action ibuprofen 600 mg tablet 600 mg PO Q8H PRN (Reason: pain) Qty: 90 0RF Print Language: South African
[2023-07-12 14:18] LABS: IDNOW Serial# 08D9AD1C; Strep A Nucleic Acid Negative (Negative)
[2023-07-12 14:21] LABS: COVID-19 Test Positive (Negative); IDNOW Serial# 9DB6401D
[2023-07-12 14:27] LABS: IDNOW Serial# BCCEAD1C; Influenza A Negative (Negative); Influenza B2 Negative (Negative)
== END 2023-07-12 14:44 | disposition home or self-care (01) ==
PROVIDERS: Registered Nurse Emergency; Emergency Provider Student in an Organized Health Care Education/Training Program; PCP Internal Medicine Geriatric Medicine
DX: U07.1 COVID-19 (principal); R00.2 Palpitations
CPT/HCPCS: 87502; 87635; 87651; 93005; 99282; 99283

== ENCOUNTER 2023-07-24 15:03 | Outpatient (AMB) | payer MEDICAID, SELFPAY ==
--- NOTE | 2023-07-24 15:06 | MHC.OFFVIS ---
Intake Intake Visit Reasons: OV- Tear of medial meniscus of left knee Intake Note: Celena is a 57 year old female who presents today for a follow up of her left knee. Last injection 04/28/23 Allergies No Known Allergies Allergy (Verified 07/24/23 15:07) HPI OV- Tear of medial meniscus of left knee HPI Details Celena is a 57 year old woman with a left MMT, in a setting of knee OA. She was last seen and injected on 04/28/23, which she tolerated well. She was seen in the ED ~2 hours later with complaints of weakness and lethargy. [place] Patient. She complains today of pain with activity and at rest. COUNT INCLUDES THE [facility] Medical History Arthritis of left knee Patellofemoral syndrome, left Surgical History H/O breast biopsy History of History of hernia surgery Social History Alcohol intake: never Current occupational status: employed Current occupation: right handed Review of Systems Const All systems reviewed & are unremarkable except as noted in HPI and below Physical Exam Const General: no acute distress, alert and awake Orientation/consciousness: patient oriented x3 HEENT Head: Yes normocephalic and Yes atraumatic Eyes EOM: EOMs intact bilaterally Resp Effort & Inspection: normal respiratory effort and able to speak in complete sentences Cardio Jugular venous distension: no JVD Skin General skin exam: turgor normal Rashes: no rashes Neuro General: patient oriented x3 Extrem Other: Left knee: TTP medial compartment mild effusion full ROM Psych Appearance: grossly normal Affect: normal affect Attitude: cooperative Results Reviewed Results Reviewed: I personally reviewed relevant MR Images 1. Complex tearing of the medial meniscal body with an inferiorly displaced meniscal flap measuring 1.9 cm in AP dimension. Tearing extends to the posterior horn and root with a dominant oblique inner margin radial component. The posterior root is significantly thickened and irregular. ? 2. Plrw-[id number]-[id number] medial as well as mild patellofemoral and lateral compartment osteoarthritis. [id number]-[id number] joint effusion and trace Conti's cyst with synovitis. 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 She has pain withdaily activity and has for close to one year.. I discussed treatment options. Symptomatically, she is not a surgical candidate at this time. In addition she clearly states that she does not want surgery. I ordered a repeat MRI of her knee, she will follow up when completed for review. Plan Scribed for Mark Lincoln MD by Jeff Shelby, medical assistant float, on 07/24/23 at 3:45 PM, EST. Coding Level of Care Code Est Pt Level 4 (29390) Diagnoses Tear of medial meniscus of left knee S83.242A
== END 2023-07-24 16:20 | disposition home or self-care (01) ==
PROVIDERS: PCP Internal Medicine Geriatric Medicine; Visit Provider Orthopaedic Surgery
DX: S83.232A Complex tear of medial meniscus, current injury, left knee, initial encounter (principal); M17.12 Unilateral primary osteoarthritis, left knee
CPT/HCPCS: 99214

== ENCOUNTER → 2023-07-24 15:03 | Outpatient (BNVA) | payer MEDICAID, SELFPAY | PROVIDERS: PCP Internal Medicine Geriatric Medicine; Visit Provider Orthopaedic Surgery | DX: S83.242A Other tear of medial meniscus, current injury, left knee, initial encounter (principal); X58.XXXA Exposure to other specified factors, initial encounter; Y93.9 Activity, unspecified; Y92.9 Unspecified place or not applicable; Y99.9 Unspecified external cause status | CPT/HCPCS: 99212 ==

== ENCOUNTER 2023-09-04 16:18 | Outpatient (REF) | payer MEDICAID, SELFPAY ==
--- NOTE | ~2023-09-04 | XR_ITS ---
EXAMINATION: Left foot and left ankle. CLINICAL INDICATIONS: Status post fall with pain and swelling. COMPARISON: None. TECHNIQUE: Left foot 3 views. Left ankle 3 views. FINDINGS: Left foot: There is mild loss of PIP and DIP joint space. No visible fracture , dislocation or subluxation seen. The soft tissues are normal. Left ankle: There is a small retrocalcaneal severed enthesophyte. The ankle mortise and subtalar joints are normal. Soft tissues are normal. XR/XR foot LT min 3V IMPRESSION: 1. Mild degenerative changes PIP and DIP joints left foot. No visible acute fracture or dislocation seen. 2. Small retrocalcaneal enthesophyte left ankle.
--- NOTE | ~2023-09-04 | XR_ITS ---
EXAMINATION: Left foot and left ankle. CLINICAL INDICATIONS: Status post fall with pain and swelling. COMPARISON: None. TECHNIQUE: Left foot 3 views. Left ankle 3 views. FINDINGS: Left foot: There is mild loss of PIP and DIP joint space. No visible fracture , dislocation or subluxation seen. The soft tissues are normal. Left ankle: There is a small retrocalcaneal severed enthesophyte. The ankle mortise and subtalar joints are normal. Soft tissues are normal. XR/XR ankle LT min 3V IMPRESSION: 1. Mild degenerative changes PIP and DIP joints left foot. No visible acute fracture or dislocation seen. 2. Small retrocalcaneal enthesophyte left ankle.
== END 2023-09-04 16:19 | disposition home or self-care (01) ==
LOC: HO.HHCX 16:18
PROVIDERS: Visit Provider Student in an Organized Health Care Education/Training Program
DX: M25.572 Pain in left ankle and joints of left foot (principal); R60.0 Localized edema
CPT/HCPCS: 73610; 73630

== ENCOUNTER 2023-10-22 14:08 | Outpatient (REF) | payer MEDICAID, SELFPAY ==
--- NOTE | ~2023-10-22 | MR_ITS ---
EXAMINATION: MR KNEE WITHOUT CONTRAST, LEFT CLINICAL INFORMATION: Left knee pain. Fall 3 weeks ago. COMPARISON: MRI 04/26/2022 TECHNIQUE: MRI of the knee without contrast was performed using routine sequences on a high-field scanner. FINDINGS: MENISCI: Medial Meniscus: Irregular inner margin tearing of the meniscal body has progressed, with a portion of the meniscus displaced into the meniscofemoral recess. Tearing along the superior articular surface and inner margin of the posterior horn is similar. Lateral Meniscus: Intact LIGAMENTS: Cruciate: Intact Collateral: Intact EXTENSOR MECHANISM: Intact ARTICULAR CARTILAGE/BONE: Patellofemoral Compartment: Areas of mild cartilage thinning and surface irregularity of the medial patellar facet and medial trochlea. Small marginal osteophytes. Medial Compartment: Cartilage thinning and surface irregularity along the weight-bearing aspect has slightly progressed with peripheral subchondral marrow edema of the weight-bearing femoral condyle medially and the marginal osteophytes. Lateral Compartment: Focal partial-thickness cartilage loss of the tibia posteriorly and cartilage thinning with subchondral edema of the posterior most nonweight-bearing femoral condyle. JOINT FLUID AND BURSAE: Trace joint effusion/Conti's cyst. MR/MR knee LT wo con IMPRESSION: 1. Irregular inner margin tearing of the medial meniscus body has progressed, with a portion of the meniscus displaced into the meniscofemoral recess. Tearing along the superior articular surface and inner margin of the posterior horn is similar. 2. Mild tricompartmental osteoarthritis has slightly progressed. Trace joint effusion/Conti's cyst.
== END 2023-10-22 14:09 | disposition home or self-care (01) ==
LOC: HO.MRI 14:08
PROVIDERS: PCP Internal Medicine Geriatric Medicine; Visit Provider Orthopaedic Surgery
DX: S83.242A Other tear of medial meniscus, current injury, left knee, initial encounter (principal)
CPT/HCPCS: 73721

== ENCOUNTER 2024-03-12 11:59 | Outpatient (REF) | payer MEDICAID, SELFPAY ==
[2024-03-12 13:32] LABS: MANUAL DIFF FLAG NO
[2024-03-12 13:45] LABS: Basophils Absolute Auto 0.1 X10*3/uL (0.0-0.2); Basophils Percent Auto 0.8 % (0-2); Eosinophils Absolute Auto 0.1 X10*3/uL (0.0-0.4); Eosinophils Percent Auto 1.8 % (0-4); Hematocrit 39.4 % (37.0-47.0); Hemoglobin 12.5 g/dl (12.0-16.0); Imm Gran Abs Auto 0.01 X10*3/uL (0.00-0.03); Imm Gran Pct Auto 0.1 % (0.0-0.4); Lymphocytes Absolute Auto 2.5 X10*3/uL (1.2-4.9); Mean Corpuscular HGB Conc 31.7 g/dl (31.0-35.0); Mean Corpuscular Hemoglobin 28.6 pg (27.0-33.0); Mean Corpuscular Volume 90.2 fL (80.0-98.0); Mean Platelet Volume 12.4 fL (9.4-12.3); Monocytes Absolute Auto 0.5 X10*3/uL (0.1-1.2); Neutrophils Absolute Auto 4.1 x10*3/uL (2.0-8.3); Neutrophils Percent Auto 56.3 % (45-73); Platelet Count 226 X10*3/uL (160-400); Red Blood Count 4.37 X10*6/uL (4.20-5.50); Red Cell Distribution Width 12.3 % (11.0-16.0); White Blood Count 7.3 X10*3/uL (4.8-10.8)
[2024-03-12 14:13] LABS: Alanine Aminotransferase 17 U/L (0-31); Albumin Level 4.4 g/dL (3.5-5.0); Alkaline Phosphatase 105 U/L (39-117); Anion Gap 11 (12-20); Aspartate Amino Transferase 14 U/L (5-31); Bilirubin Total 0.8 mg/dL (0.0-1.0); Blood Urea Nitrogen 17 mg/dL (9-16); Calcium 9.6 mg/dL (8.4-10.2); Carbon Dioxide 28 mmol/L (22-29); Chloride 108 mmol/L (96-108); Estimated Glomerular Filt Rate > 60; Glucose Random 102 mg/dL (60-115); Potassium 4.5 mmol/L (3.3-5.1); Sodium 142 mmol/L (135-145); Total Protein 7.7 g/dL (6.5-8.0)
== END 2024-03-12 12:00 | disposition home or self-care (01) ==
LOC: HO.HHCL 11:59
PROVIDERS: Visit Provider Internal Medicine Geriatric Medicine
DX: R10.11 Right upper quadrant pain (principal)
CPT/HCPCS: 36415; 80053; 85025

== ENCOUNTER 2024-03-17 12:30 | Emergency (ER) | payer MEDICAID, SELFPAY ==
--- NOTE | ~2024-03-17 | US_ITS ---
EXAMINATION: US ABDOMEN LIMITED CLINICAL INFORMATION: Right upper quadrant pain. COMPARISON: None available. TECHNIQUE: Real-time imaging of the right upper quadrant abdominal viscera. FINDINGS: PANCREAS: Head and body of the pancreas are normal. The tail was not well seen due to bowel gas. LIVER: Normal. The liver is normal in size. The liver contour is normal. Parenchymal echogenicity is normal. No focal hepatic lesion. There is no intrahepatic biliary duct dilatation seen. GALLBLADDER: Normal. The gallbladder is physiologically distended without evidence of stones, sludge, polyps, wall thickening or pericholecystic fluid. COMMON BILE DUCT: Normal in caliber measuring 0.4 cm in diameter. RIGHT KIDNEY: Normal. No hydronephrosis. No renal calculi or focal parenchymal lesions. The kidney measures 9.3 cm in maximum dimension. FREE FLUID: None. US/US abdomen limited IMPRESSION: Limited visualization of the pancreas otherwise unremarkable exam.
--- NOTE | ~2024-03-17 | XR_ITS ---
EXAMINATION: XR CHEST CLINICAL INFORMATION: Pain. COMPARISON: Most recent chest and rib radiographs dated 05/21/2022. TECHNIQUE: 2 views of the chest were obtained. FINDINGS: The lungs are clear. The cardiomediastinal silhouette is normal in size. There is no pleural effusion or pneumothorax. No acute osseous abnormality. XR/XR chest 2V IMPRESSION: No acute cardiopulmonary findings.
[2024-03-17 13:21] VITALS: BP 162/82; PULSE 62; RESP 16; TEMP 36.1; O2SAT 97; BMI 33.1
--- NOTE | 2024-03-17 13:23 | ED.GENADULT ---
HPI - General Adult General Chief complaint: Abdominal Pain Stated complaint: Abd pain R side Time Seen by Provider: 03/17/24 17:18 Source: patient Mode of arrival: ambulatory Limitations: no limitations History of Present Illness HPI narrative: Patient is a 58-year-old female who presents emergency department for evaluation of right upper quadrant abdominal/rib pain. Reports it to be atraumatic in nature. She reports that she saw her primary care provider last week for evaluation of this, reports that she had lab work done which was normal, and she was awaiting imaging which has been scheduled, has appointment in 5 days 03/22/2024. However, she reports increasing severity of the pain, and felt as though she could not wait until then for further evaluation. It is difficult for her to discern exacerbating or alleviating factors. She states that the pain is aching in nature, typically occurs every 20 minutes-1 hour or so multiple times throughout the day. She does admit to having a upper respiratory infection with cough 1 week prior to this pain starting. When asked, she can not discern whether it feels worse with provoked cough or deep breathing Related Data Previous Rx's ?Medication ?Instructions ?Recorded ibuprofen 600 mg tablet 600 mg PO Q8H PRN pain #90 tabs 04/28/23 Allergies Allergy/AdvReac Type Severity Reaction Status Date / Time No Known Allergies Allergy Verified 03/17/24 13:25 Review of Systems Review of Systems: Yes all other systems are reviewed and are negative PMFSH Past Medical History Attestation statement: The following information was validated with the patient. Source: old records reviewed Medical History Arthritis of left knee Patellofemoral syndrome, left Surgical History History of H/O breast biopsy History of hernia surgery Social History Social History Alcohol intake: never Smoked in Last 30 Days: No Use of substances other than those prescribed or required for medical reasons: No Advance Directives: No Advance Directives Information Provided: Yes Current occupational status: employed Current occupation: right handed Physical Exam ED Vital Signs: Vital Signs - 24 hr 03/17/24 13:21 03/17/24 17:41 Temperature 96.9 F 97.9 F Pulse Rate 62 62 Respiratory Rate 16 18 Blood Pressure 162/82 H 172/93 H Pulse Oximetry 97 97 Oxygen Delivery Method Room Air Room Air BMI result Body Mass Index 33.1 Course Course Course Narrative: RME- 58 year old female presents for evaluation of right upper abdominal pain for the last week. She saw her PCP who did labs that were unremarkable and has some imaging scheduled for Friday but she feels she cannot wait that long. Plan for labs, chest x-ray and us abdomen Medical Decision Making Medical Decision Making [facility] Narrative: Patient is a 58-year-old female presenting to emergency department for evaluation of right upper quadrant abdominal/ rib pain as per HPI. Overall she is well-appearing, nontoxic, afebrile. She is without tachycardia tachypnea or hypoxia. Lung sounds are clear bilaterally. Abdominal examination is benign. Clinically I have a low suspicion for acute intra-abdominal pathology. CXR was obtained no evidence of infiltrate consolidation or pleural effusion, no acute pathology. Right upper quadrant ultrasound was obtained, no hepatobiliary etiology. Wells score negative, not consistent for pulmonary embolism. Discussed with patient pain may be pleuritic in nature, due to recent URI. Reviewed labs, no leukocytosis, no anemia, no electrolyte derangement, no MIGUELANGEL, no elevated transaminases/lipase. Urinalysis is without evidence of infection or microscopic hematuria. She has not trialed any OTC medications for management of this pain. At this time feel that she is stable for discharge home, outpatient follow-up with her primary care provider, trial course of acetaminophen/ibuprofen. Discussed worrisome signs and symptoms that would warrant re-evaluation in the emergency department. All questions answered Differential Diagnosis Differential Diagnoses: The differential diagnosis associated with the presentation includes (See narrative above) Admission/Observation Consideration of admission/observation: Escalation of care including admission/observation considered (See narrative above) Lab Data [facility] Lab Attestation statement: I reviewed the patient's lab results. CBC is without leukocytosis anemia or thrombocytopenia. No electrolyte derangement. No MIGUELANGEL. Transaminases within normal range, lipase within normal range. 03/17/24 15:16 03/17/24 15:16 Labs: Lab Results 03/17/24 03/17/24 Range/Units 15:16 18:01 WBC 6.9 (4.8-10.8) X10*3/uL RBC 4.34 (4.20-5.50) X10*6/uL Hgb 12.5 (12.0-16.0) g/dl Hct 39.2 (37.0-47.0) % MCV 90.3 (80.0-98.0) fL MCH 28.8 (27.0-33.0) pg MCHC 31.9 (31.0-35.0) g/dl RDW 12.1 (11.0-16.0) % Plt Count 227 (160-400) X10*3/uL MPV 11.4 (9.4-12.3) fL Immature Gran % (Auto) 0.3 (0.0-0.4) % Neut % (Auto) 49.5 (45-73) % Lymph % (Auto) 42.0 H (20-40) % [place] % (Auto) 6.1 (2-11) % Eos % (Auto) 1.5 (0-4) % Baso % (Auto) 0.6 (0-2) % Lymph # (Auto) 2.9 (1.2-4.9) X10*3/uL [place] # (Auto) 0.4 (0.1-1.2) X10*3/uL Eos # (Auto) 0.1 (0.0-0.4) X10*3/uL Baso # (Auto) 0.0 (0.0-0.2) X10*3/uL Abs Immat Gran (auto) 0.02 (0.00-0.03) X10*3/uL Absolute Neuts (auto) 3.4 (2.0-8.3) x10*3/uL Absolute Nucleated RBC 0.000 (0.0-0.012) X10*3/uL Nucleated RBC % (auto) 0.0 (0.0-0.2) /100WBC Sodium 141 (135-145) mmol/L Potassium 4.7 (3.3-5.1) mmol/L Chloride 107 (96-108) mmol/L Carbon Dioxide 26 (22-29) mmol/L Anion Gap 13 (12-20) BUN 12 (9-16) mg/dL Creatinine 0.81 (0.5-1.4) mg/dL Estim Creat Clear Calc 69.3 Estimated GFR > 60 Random Glucose 93 (60-115) mg/dL Calcium 9.8 (8.4-10.2) mg/dL Total Bilirubin 1.0 (0.0-1.0) mg/dL AST 15 (5-31) U/L ALT 14 (0-31) U/L Alkaline Phosphatase 105 (39-117) U/L Total Protein 8.1 H (6.5-8.0) g/dL Albumin 4.5 (3.5-5.0) g/dL Lipase 13 (8-78) U/L Urine Color Yellow Urine Appearance Clear Urine pH 6.0 (5.0-9.0) Ur Specific [place] 1.015 (1.005-1.025) Urine Protein Negative (Neg-Trace) mg/dL Urine Glucose (UA) Negative (Negative) mg/dL Urine Ketones Negative (Negative) mg/dL Urine Blood Negative (Negative) Urine Nitrite Negative (Negative) Ur Leukocyte Esterase Negative (Negative) Independent Interpretation I performed an independent interpretation of an: Plain X-Ray (No infiltrates or consolidation) and Ultrasound (No cholelithiasis) Radiology Impression Discussion of test interpretation with radiology: I have reviewed the radiologist's reading. Radiologist Impression: XR/XR chest 2V IMPRESSION: No acute cardiopulmonary findings. US/US abdomen limited IMPRESSION: Limited visualization of the pancreas otherwise unremarkable exam. Independent Historian Clinical information obtained from an independent historian. History obtained from or confirmed by: Spouse (Present who confirms history) External Record Review External record reviewed: Outpatient record Prescription Management I considered prescription management with: Pain Medication (Acetaminophen/ibuprofen) Discharge Plan Discharge Clinical Impression: Abdominal pain Patient Disposition: Home, Self-Care Instructions: Abdominal Pain (ED) Additional Instructions: You can take ibuprofen 200 mg, 3 tablets (600mg) every 6-8 hours as needed for pain, in addition to Tylenol 500 mg, 2 tablets (1,000mg) every 4-6 hours as needed for pain, but not to exceed 3 doses daily (3,000mg).? As discussed please call your primary care provider 1st thing tomorrow morning to arrange for a follow-up visit. You may return back to emergency department any new or worsening symptoms or concerns. Prescriptions: No Action ibuprofen 600 mg tablet 600 mg PO Q8H PRN (Reason: pain) Qty: 90 0RF Referrals: Name,MD Keyur [Primary Care Provider] - Print Language: Armenian
[2024-03-17 15:19] LABS: MANUAL DIFF FLAG NO
[2024-03-17 15:21] LABS: Basophils Percent Auto 0.6 % (0-2); Eosinophils Absolute Auto 0.1 X10*3/uL (0.0-0.4); Eosinophils Percent Auto 1.5 % (0-4); Hematocrit 39.2 % (37.0-47.0); Hemoglobin 12.5 g/dl (12.0-16.0); Imm Gran Abs Auto 0.02 X10*3/uL (0.00-0.03); Imm Gran Pct Auto 0.3 % (0.0-0.4); Lymphocytes Absolute Auto 2.9 X10*3/uL (1.2-4.9); Mean Corpuscular HGB Conc 31.9 g/dl (31.0-35.0); Mean Corpuscular Hemoglobin 28.8 pg (27.0-33.0); Mean Corpuscular Volume 90.3 fL (80.0-98.0); Mean Platelet Volume 11.4 fL (9.4-12.3); Monocytes Absolute Auto 0.4 X10*3/uL (0.1-1.2); Monocytes Percent Auto 6.1 % (2-11); Neutrophils Absolute Auto 3.4 x10*3/uL (2.0-8.3); Neutrophils Percent Auto 49.5 % (45-73); Platelet Count 227 X10*3/uL (160-400); Red Blood Count 4.34 X10*6/uL (4.20-5.50); Red Cell Distribution Width 12.1 % (11.0-16.0); White Blood Count 6.9 X10*3/uL (4.8-10.8)
[2024-03-17 15:39] LABS: Alanine Aminotransferase 14 U/L (0-31); Albumin Level 4.5 g/dL (3.5-5.0); Alkaline Phosphatase 105 U/L (39-117); Anion Gap 13 (12-20); Aspartate Amino Transferase 15 U/L (5-31); Blood Urea Nitrogen 12 mg/dL (9-16); Calcium 9.8 mg/dL (8.4-10.2); Carbon Dioxide 26 mmol/L (22-29); Chloride 107 mmol/L (96-108); Creatinine Clr Calc Pharmacy 69.3; Estimated Glomerular Filt Rate > 60; Glucose Random 93 mg/dL (60-115); Lipase 13 U/L (8-78); Potassium 4.7 mmol/L (3.3-5.1); Sodium 141 mmol/L (135-145); Total Protein 8.1 g/dL (6.5-8.0)
[2024-03-17 17:41] VITALS: BP 172/93; PULSE 62; RESP 18; TEMP 36.6; O2SAT 97
[2024-03-17 18:07] LABS: Appearance Urine Clear; Color Urine Yellow; Glucose Urine UA Negative (Negative); Leukocyte Esterase Urine Negative (Negative); Nitrite Urine Negative (Negative); Specific Gravity - Urine 1.015 (1.005-1.025); Urine Blood Negative (Negative); Urine Ketones Negative (Negative); Urine Protein Negative (Neg-Trace)
[2024-03-17] MEDS: Ibuprofen 600 MG TABLET PO (18:59)
[2024-03-17 19:01] VITALS: BP 153/81; PULSE 60; RESP 16; TEMP 36.6; O2SAT 95
== END 2024-03-17 19:03 | disposition home or self-care (01) ==
PROVIDERS: Nurse Practitioner Family; Physician Assistant; Emergency Provider Emergency Medicine; PCP Internal Medicine Geriatric Medicine
DX: R10.11 Right upper quadrant pain (principal); R07.81 Pleurodynia
CPT/HCPCS: 36415; 71046; 76705; 80053; 81003; 83690; 85025; 99284

== ENCOUNTER 2024-05-12 12:15 | Outpatient (REF) | payer MEDICAID, SELFPAY | END 2024-05-12 12:16 | disposition home or self-care (01) | LOC: HO.MAMMO 12:15 | PROVIDERS: PCP Internal Medicine Geriatric Medicine; Visit Provider Internal Medicine Geriatric Medicine | DX: Z12.31 Encounter for screening mammogram for malignant neoplasm of breast (principal) | CPT/HCPCS: 77063; 77067 ==

== ENCOUNTER → 2024-05-12 12:15 | Outpatient (BNV) | payer MEDICAID, SELFPAY | PROVIDERS: PCP Internal Medicine Geriatric Medicine; Visit Provider Radiology Diagnostic Radiology | DX: Z12.31 Encounter for screening mammogram for malignant neoplasm of breast (principal) | CPT/HCPCS: 77063; 77067 ==

== ENCOUNTER 2024-09-17 11:18 | Outpatient (REF) | payer MEDICAID, SELFPAY ==
[2024-09-17 14:07] LABS: Alanine Aminotransferase 17 U/L (0-31); Albumin Level 4.3 g/dL (3.5-5.0); Alkaline Phosphatase 101 U/L (39-117); Anion Gap 10 (12-20); Aspartate Amino Transferase 20 U/L (5-31); Bilirubin Total 1.1 mg/dL (0.0-1.0); Blood Urea Nitrogen 16 mg/dL (9-16); Calcium 10.2 mg/dL (8.4-10.2); Carbon Dioxide 25 mmol/L (22-29); Chloride 109 mmol/L (96-108); Cholesterol 188 mg/dL (<200); Estimated Glomerular Filt Rate > 60; Glucose Random 97 mg/dL (60-115); HDL Cholesterol 56 mg/dL (>40); LDL Cholesterol Calculated 118 mg/dL (<100); Potassium 4.2 mmol/L (3.3-5.1); Sodium 140 mmol/L (135-145); Total Protein 7.6 g/dL (6.5-8.0); Triglycerides 74 mg/dL (<150)
== END 2024-09-17 11:19 | disposition home or self-care (01) ==
LOC: HO.HHCL 11:18
PROVIDERS: Visit Provider Internal Medicine Geriatric Medicine
DX: Z00.00 Encounter for general adult medical examination without abnormal findings (principal); R10.31 Right lower quadrant pain
CPT/HCPCS: 36415; 80053; 80061; 99212

== ENCOUNTER 2024-09-17 14:04 | Outpatient (AMB) | payer MEDICAID, SELFPAY ==
--- NOTE | 2024-09-17 14:09 | MHC.OFFVIS ---
Vital Signs 09/17/24 14:10 Height 5 ft Weight 170 lb 3.15 oz BMI 33.2 BP 136/72 Blood Pressure Location Lt brachial Position Sitting Pulse 80 Pulse Source Pulse Oximeter Pulse Oximetry (%) 98 Oxygen Delivery Method Room Air Intake Visit Reasons: Abdominal pain Intake Note: Relevant Flags or Indicators ? Requires Tooling Engineering Tech? Zonia Dallas presents in office today for a scheduled initial assessment. CC; Seen in ED as of 03/2024 for Abd pain. Pt no showed US appt per their PCP. Relevant GI Sx as reported per pt? Abdominal Pain o?? Pt reports abd pain is more in line with Right flank pain. ? Hx of any recent surgeries? None Pt just had a physical today with their PCP but forgot to request a refill of their nasal spray. Pt is hoping we could refill this for her even though we typically don't rx this. Tooling Engineering Tech Required: Yes Tooling Engineering Tech Services: Tooling Engineering Tech Present Tooling Engineering Tech Name: [id number] Christina Cohen Allergies No Known Allergies Allergy (Verified 09/17/24 14:10) HPI HPI Abdominal pain: Details: 58-year-old female with past medical history of arthritis, abdominal pain has been referred to us by her PCP. Here for initial consultation. Patient reports that she has been dealing with right upper quadrant pain that is more in the right flank area for several months. Patient was seen in the ER back in March. Had blood work and ultrasound and they were all normal. Patient reports that her pain is not related to meals. Pain is there sometimes when she is lying down on her side. Patient denies any recent fall or any other injury. Patient denies any nausea or vomiting. Denies dyspepsia, dysphagia or odynophagia. Denies melena, hematochezia, unintentional weight loss or ribbon like stools. [facility] Medical History Arthritis of left knee Patellofemoral syndrome, left Surgical History History of H/O breast biopsy History of hernia surgery Social History Alcohol intake: never Current occupational status: employed Current occupation: right handed Review of Systems Const Denies weight gain and Denies weight loss ENT Reports no additional complaints, Denies dysphagia and Denies odynophagia Card Reports no additional complaints Resp Reports no additional complaints GI Reports abdominal pain (RUQ), Denies belching, Denies melena, Reports bloating, Denies change in bowel habits, Denies dysphagia, Denies excessive flatus, Denies dyspepsia, Denies heartburn, Denies diarrhea, Denies loose stools, Denies nausea, Denies odynophagia and Denies vomiting Reports no additional complaints Musc Reports no additional complaints Neuro Reports no additional complaints Psych Reports no additional complaints Endo Reports no additional complaints Physical Exam Vital Signs: Last Vital Signs Pulse 80 09/17/24 14:10 BP 136/72 09/17/24 14:10 Pulse Ox 98 09/17/24 14:10 Oxygen Delivery Method Room Air 09/17/24 14:10 BMI result Body Mass Index 33.2 Const General: healthy appearing and no acute distress Nutritional Appearance: obese Orientation/consciousness: patient oriented x3 Resp Effort & Inspection: normal respiratory effort, able to speak in complete sentences, no tracheal deviation and symmetric chest movement Auscultation: clear to auscultation bilaterally Cardio Rate: regular rate GI Inspection: Yes normal to inspection, No distended and Yes obesity Palpation (GI): Soft to palpation, not firm, nontender and No hepatosplenomegaly present Auscultation: normal bowel sounds General: Yes no CVA tenderness Back/Spine/Pelvis Back: no CVA tenderness Skin General skin exam: elasticity normal, turgor normal and dry skin Neuro General: patient oriented x3 Psych Appearance: grossly normal Mental Status: mental status grossly normal Assessment & Plan Assessment & Plan (1) RUQ abdominal pain: Code(s): R10.11 - Right upper quadrant pain Plan Patient will watch her pain. She was encouraged to put warm compresses on before laying down. Patient states that she is moving her bowels without any issues. If her pains will change after meals with cramping she will call our office will order HIDA scan. Currently her pain is not related to food. She does not reports to be bloated. She will return in 6 months to re-evaluate. Patient was encouraged to call the office if she will have worsening symptoms. Patient is agreeable to this plan and verbalizes understanding of instructions. She was given the opportunity to ask questions and all questions answered. Thank you for allowing me to participate in her care Coding Level of Care Code New Pt Level 3 (38518) Diagnoses RUQ abdominal pain R10.11 Time Spent (min) 40 Comment 30 minutes spent with patient and additional 10 minutes spent reviewing her records
[2024-09-17 14:10] VITALS: BP 136/72; PULSE 80; O2SAT 98; BMI 33.2
== END 2024-09-17 14:52 | disposition home or self-care (01) ==
LOC: HO.HGI 14:05
PROVIDERS: PCP Internal Medicine Geriatric Medicine; Visit Provider Nurse Practitioner Family
DX: R10.11 Right upper quadrant pain (principal)
CPT/HCPCS: 99203

== ENCOUNTER 2025-02-28 13:47 | Outpatient (AMB) | payer MEDICAID, SELFPAY ==
--- NOTE | 2025-02-28 13:52 | MHC.OFFVIS ---
Vital Signs 02/28/25 14:06 Height 5 ft BMI Reason not done Patient refused/unable BP 116/62 Blood Pressure Location Rt brachial Position Sitting Pulse 76 Pulse Source Pulse Oximeter Pulse Oximetry (%) 94 Oxygen Delivery Method Room Air Intake Visit Reasons: 6 mos FUV. Intake Note: ESTABLISHED PATIENT for chronic abd pain mgmt. Chief Complaint; Pt reports having less abd pain than they had previously. Pt still reports occasional episodes but states that they happen less frequently. No additional concerns at this time. Fishing Instructor Required: Yes Fishing Instructor Services: Fishing Instructor Present Fishing Instructor Name: Earl [id number] Accompanied by: Self / Same As Patient Allergies No Known Allergies Allergy (Verified 09/17/24 14:10) HPI HPI 6 mos FUV.: Details: LAST VISIT: RUQ abdominal pain Plan Patient will watch her pain. She was encouraged to put warm compresses on before laying down. Patient states that she is moving her bowels without any issues. If her pains will change after meals with cramping she will call our office will order HIDA scan. Currently her pain is not related to food. She does not reports to be bloated. She will return in 6 months to re-evaluate. Patient was encouraged to call the office if she will have worsening symptoms. Patient is agreeable to this plan and verbalizes understanding of instructions. She was given the opportunity to ask questions and all questions answered TODAY'S VISIT: Patient is here today for follow-up. Patient reports that she continues to have right upper quadrant pain. Pain feels nagging like pain sometimes after meals and sometimes to 3 hours after she eats. Patient denies any nausea or vomiting. Reports that she is moving her bowels without any issues. Denies any dyspepsia, dysphagia or odynophagia. Denies melena, hematochezia. Last colonoscopy in May of 2017, patient had a normal colonoscopy. Recommendation was made for patient to return in 10 years [facility] Medical History Arthritis of left knee Patellofemoral syndrome, left Surgical History History of H/O breast biopsy History of hernia surgery Social History Alcohol intake: never Current occupational status: employed Current occupation: right handed Review of Systems Const Denies weight gain and Denies weight loss ENT Reports no additional complaints, Denies dysphagia and Denies odynophagia Card Reports no additional complaints Resp Reports no additional complaints GI Reports abdominal pain (RUQ), Denies belching, Denies melena, Reports bloating, Denies change in bowel habits, Reports constipation (Occasional), Denies dysphagia, Denies excessive flatus, Denies dyspepsia, Denies heartburn, Denies diarrhea, Denies loose stools, Denies nausea, Denies odynophagia and Denies vomiting Reports no additional complaints Musc Reports no additional complaints Neuro Reports no additional complaints Psych Reports no additional complaints Endo Reports no additional complaints Physical Exam Vital Signs: Last Vital Signs Pulse 76 02/28/25 14:06 BP 116/62 02/28/25 14:06 Pulse Ox 94 02/28/25 14:06 Oxygen Delivery Method Room Air 02/28/25 14:06 Const General: healthy appearing and no acute distress Nutritional Appearance: obese Orientation/consciousness: patient oriented x3 Resp Effort & Inspection: normal respiratory effort, able to speak in complete sentences, no tracheal deviation and symmetric chest movement Auscultation: clear to auscultation bilaterally Cardio Rate: regular rate GI Inspection: Yes normal to inspection, No distended and Yes obesity Palpation (GI): Soft to palpation, not firm, Tenderness to palpation present (GI) in the RUQ (mild) and No hepatosplenomegaly present Auscultation: normal bowel sounds General: Yes no CVA tenderness Back/Spine/Pelvis Back: no CVA tenderness Skin General skin exam: elasticity normal, turgor normal and dry skin Neuro General: patient oriented x3 Psych Appearance: grossly normal Mental Status: mental status grossly normal Assessment & Plan Assessment & Plan (1) RUQ abdominal pain: Code(s): R10.11 - Right upper quadrant pain (2) Postprandial abdominal bloating: Code(s): R14.0 - Abdominal distension (gaseous) Plan Patient continues with occasional right upper quadrant pain sometimes after meals and sometimes not related to meals. Patient denies any nausea or vomiting. Reports occasional abdominal bloating. Will send patient for HIDA scan. Mild tenderness to RUQ without rebound tenderness. Patient will be seen after HIDA scan. She is agreeable to this plan and verbalizes understanding of instructions. She was given the opportunity to ask questions and all questions answered. Thank you for allowing me to participate in her care Orders: Orders NM hepatobiliary w pharm Today R10.11 - Right upper quadrant pain Coding Level of Care Code Est Pt Level 4 (98448) Complex EM visit Add On G2211 Diagnoses RUQ abdominal pain R10.11 Postprandial abdominal bloating R14.0 Time Spent (min) 35 Comment 25 minutes spent with patient and additional 10 minutes spent reviewing her records
[2025-02-28 14:06] VITALS: BP 116/62; PULSE 76; O2SAT 94
--- OUTSIDE RECORDS SUMMARY | 2025-02-28 15:59 | XMS_ITS | Encounter Summary ---
Author Organization [facility] [facility] Address [address] [place] [address] [address] [place] [address] Care Team Providers Care Cisco Engineer Name Role Phone NameKeyur MD Primary Care Provider [phone] Encounter Details Date Type Department Care Team (Late Contact Info) Description 04/21/2023 Abstract [facility] [address] [place] [id number] Name, MD Keyur [address] [place] [address] [phone] Social History Tobacco Use Types Packs/Day Years Used Date Smoking Tobacco: Never Passive Smoke Exposure: Never Smokeless Tobacco: Never Alcohol Use Standard Drinks/Week Comments Never 0 (1 standard drink = 0.6 oz pur e alcohol) Comments Unknown Sex and Gender Information Value Date Recorded Sex Assigned at Female 09/16/2022 10:21 AM EDT Legal Sex Female 10:21 AM EDT Gender Identity Female 09/16/2022 10:21 AM EDT Sexual Orientation Straight 09/16/2022 10 :21 AM EDT COVID-19 Exposure Response Date Recorded In the last 10 days, have yo u been in contact with someone who was confirmed or suspected to have Coronavirus/COVID-19? No / Unsure 04/17/2023 11:17 AM EDT documented as of this encounter Plan of Treatment Upcoming Encounters Date Type Department Care Team (Late Contact Info) Description 03/22/2025 3:15 PM EDT Office Visit [facility] [address] [place] [address] [phone] Name, MD Keyur [address] [place] [address] [phone] documented as of this encounter Procedures Procedure Name Priority Date/Time Associated Diagnosis Comments PAP/HPV Routine 08/12/2019 12:00 AM EDT COLONOSCOPY Routine 06/10/2017 2:50 PM EDT documented in this encounter Results * Hm Pap Smear (08/12/2019 12:00 AM EDT) us Historical Provider HEALTH MAINTENANCE Final Result * Colonoscopy (06/10/2017 2:50 PM EDT) Colonoscopy Normal Normal Narrative Annette Yen - 06/10/2017 2:50 PM EDT Recommended 10 year follow up us Historical Provider HEALTH MAINTENANCE Final Result documented in this encounter Visit Diagnoses Not on filedocumented in this encounter Care Teams Cisco Engineer Relationship Specialty Start Date End Date Name, MD Keyur [address] [place] [phone] PCP - General Family Medicine 01/04/16 documented as of this encounter
--- OUTSIDE RECORDS SUMMARY | 2025-02-28 15:59 | XMS_ITS | Encounter Summary ---
Author Organization [employer] [facility] Address [address] [place] [address] [place] [address] Care Team Providers Care Project Designer Name Role Phone NameKeyur MD Primary Care Provider [phone] Encounter Details Date Type Department Care Team (Late Contact Info) Description 06/24/2023 Abstract [facility] [address] [place] [address] Asia Granado DDS [address], [place] [phone] Social History Tobacco Use Types Packs/Day Years Used Date Smoking Tobacco: Never Passive Smoke Exposure: Never Smokeless Tobacco: Never Alcohol Use Standard Drinks/Week Comments Never 0 (1 standard drink = 0.6 oz pur e alcohol) Depression Answer Date Recorded Patient Health Questionnaire-9 Score 0 05/01/2023 Depression Answer Date Recorded Patient Health Questionnaire-2 Score 0 05/01/2023 Comments Unknown Sex and Gender Information Value Date Recorded Sex Assigned at Female 09/16/2022 10:21 AM EDT Legal Sex Female 10:21 AM EDT Gender Identity Female 09/16/2022 10:21 AM EDT Sexual Orientation Straight 09/16/2022 10 :21 AM EDT documented as of this encounter Plan of Treatment Upcoming Encounters Date Type Department Care Team (Late Contact Info) Description 03/22/2025 3:15 PM EDT Office Visit [facility] [address] [place] [address] Name, MD Keyur [address] [place] [address] documented as of this encounter Visit Diagnoses Not on filedocumented in this encounter Additional Health Concerns Assessment Noted Time PHQ-9 Depression Total Score: 0 05/01/20 23 11:08 AM EDT documented as of this encounter Care Teams Project Designer Relationship Specialty Start Date End Date Name, MD Keyur [address] [place] [address] PCP - General Family Medicine 01/04/16 documented as of this encounter
--- OUTSIDE RECORDS SUMMARY | 2025-02-28 15:59 | XMS_ITS | Clinical Summary ---
Author Organization [employer] Address [address] [place] [address] [address] [place] [address] Care Team Providers Care Reproduction Technician Name Role Phone Name, Keyur VANG Primary Care Provider [phone] Allergies No known active allergies Medications * This document contains information received from the source organization and may not represent a complete record from that organization. Acetaminophen 500 MG capsuleIndicati ons:Back pain, unspecified back location, unspecified back pain laterality, unspecified chronicity Take 2 capsules (1,000 mg) by mouth every 6 (six) hours if needed for mild pain. 30 capsule 1 10/18/20 22 Active Blood Pressure Monitor kitIndications: Elevated BP without diagnosis of hypertension Use to check blood pressure once daily and when symptomatic 1 kit 04/03/20 23 Active Blood Pressure Monitor kit Check blood pressure twice a wee. Dx hypertension 1 kit 09/04/20 23 Active buPROPion XL (Wellbutrin XL) 150 MG 24 hr tablet TAKE 1 TABLET BY MOUTH DAILY IN THE MORNING 90 tablet 03/02/20 24 Active neomycin-bacitr acin-polymyxin (Neosporin) 5-400-5000 ointment Apply topically if needed in the morning and at bedtime for irritation. 15 g 04/28/20 24 Active diphenhydrAMINE (BENADryl) 25 MG tablet Take 2 tablets (50 mg) by mouth every 8 (eight) hours if needed for itching for up to 10 doses. 20 tablet 04/28/20 24 Active fluticasone (Flonase) 50 MCG/ACT nasal spray SPRAY 2 SPRAYS INTO EACH NOSTRIL EVERY MORNING 48 g 2 09/28/20 24 Active Diclofenac Sodium 1 % gel APPLY 2 GRAMS TOPICALLY TO AFFECTED AREA(S) OF WRIST derecho THREE TIMES DAILY NEEDED FOR PAIN 100 g 02/25/20 25 Active lidocaine (Lidoderm) 5 % patch APPLY 1 PATCH TOPICALLY TO SKIN, LEAVE ON FOR 12 HOURS AND OFF FOR 12 HOURS DIRECTED 30 patch 02/25/20 25 Active diclofenac (Voltaren) 75 MG EC tabletIndicatio ns:Chronic low back pain, unspecified back pain laterality, unspecified whether sciatica present TAKE 1 TABLET TWICE DAILY IN THE MORNING AND AT BEDTIME NEEDED FOR PAIN DO NOT BREAK, CRUSH, DISSOLVE OR CHEW 60 tablet 02/25/20 25 Active lidocaine (Lidoderm) 5 % patch APPLY 1 PATCH TOPICALLY TO SKIN, LEAVE ON FOR 12 HOURS AND OFF FOR 12 HOURS DIRECTED 30 patch 09/17/20 24 2024 Discontinued Diclofenac Sodium 1 % gel APPLY 2 GRAMS TOPICALLY TO AFFECTED AREA(S) OF THE WRIST derecho THREE TIMES DAILY NEEDED FOR PAIN 100 g 09/17/20 24 2024 Discontinued diclofenac (Voltaren) 75 MG EC tabletIndicatio ns:Chronic low back pain, unspecified back pain laterality, unspecified whether sciatica present TAKE 1 TABLET BY MOUTH TWICE DAILY IN THE MORNING AND AT BEDTIME NEEDED FOR PAIN DO NOT BREAK, CRUSH, DISSOLVE OR CHEW 60 tablet 10/20/20 24 2024 Discontinued Active Problems Problem Noted Date Diagnosed Date Allergic reaction to insect sting 04/28/2024 Abdominal pain 04/20/2024 Assessment & Plan (04/22/2024 4:38 PM EDT): Acute bout of severe abdominal pain without clear trigger, no associated symptoms, unremarkable work up in ER, and no ongoing symptoms. Pt requesting stat gi referral due to upcoming travel. Referral placed. 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 COVID-19 04/20/2024 Patellofemoral syndrome, left 04/20/2024 Left ankle sprain 09/04/2023 Assessment & Plan (09/04/2023 10:37 PM EDT): Pt w recent trauma -twisting her left ankle w mild swelling of ext aspect of dorsum of foot and ankle -XR done today of ankle and foot with no obvious fractures from my observation -likely ankle sprain -advised for rest,elevation of extremity, to avoid weight bearing , ice -tylenol prn and NSAIDS-has diclofenac at home -gave crutches here in [place] to avoid weight bearing -referred to PT -to schedule apt in case pain persisit to avoid chronic discomfort Elevated blood pressure reading 09/04/2023 Assessment & Plan (09/04/2023 10:42 PM EDT): BP elevated today possibly reactive to pain Pt reports some times has been told to have elevated BP at previous apt but not consistently -px today BP machine to monitor BP once has resolution of pain -advised to schedule earlier apt w PCP only if noticing mx elevated Bps > 140/90 at home but once pain has resolved Grief 05/01/2023 Assessment & Plan (05/02/2023 9:10 AM EDT): Assessment: Patient reports her brother three months ago. She is requesting professional support to be able to process grief. Patient will benefit from OP therapy service. At this time Celena Mayes meets criteria for Visit Diagnoses: Problem List Items Addressed This Visit Other Grief Patient ready to address current needs Yes Strengths include reaching out for help PLAN: 1. Follow up with [facility]: Not recommended for follow-up 2. Patient goal is to engage in OP therapy service 3. Behavioral Recommendations a. Patient will engage in OP service once established b. Patient may request to speak with a [facility] during next PCP visit, if needed Acute meniscal tear of knee, left, sequela 04/17 Assessment & Plan (04/17/2023 11:43 AM EDT): -Acute on chronic pain. No evidence of infection. -She does have follow up with ortho on 04/28/2023. Will call Dr. Lincoln to see if there is an earlier opening. -Recomend tylenol and ibuprophen. -Will give 3 tablets on tramadol to help with sleep as she is unable to sleep due to pain.She knows this is only a short term for threee days. Moderate generalized gingival recession 10/24/20 22 Gingival bleeding 10/24/2022 Chronic low back pain 05/19/2018 Obesity 12/10/2017 Vitamin D deficiency 05/14/2017 Overweight 04/12/2015 Resolved Problems Problem Noted Date Diagnosed Date Resolved Date Viral upper respiratory tract infection 10/22/2022 04/03/2023 Assessment & Plan (10/22/2022 4:00 PM EST): Has residual cough only. Neg rapid viral tests. FU confirmatory test results, unable to state at this time If she HAD any specific virus Last week. Take Acetaminophen (Tylenol??)or Ibuprofen as needed to reduce fever or discomfort Gargle with salt water and use throat sprays/lozenges for throat pain. Use heated, humidified air. If you do not have a humidifier, take hot showers. Impaired fasting glucose 12/08/2012 Encounters Date Type Department Care Team Description 02/23/2025 Refill [facility] [address] [place], [place] [id number] Name, MD Keyur Chronic low back pain, unspecified back pain laterality, unspecified whether sciatica present 01/28/2025 Population Health Risk Score [facility] () Department [address] [id number] Provider, Population Health Generic from Last 3 Months Immunizations Name Administration Dates Next Due Hep B, adult 09/20/2024 Influenza injectable quadrivalent preservative f ree 08/20/2021,08/07/2020 Influenza, IIV3, injectable 09/19/2014 Influenza, Split (incl. purified surface antigen ) 10/01/2013,12/09/2012 TD (adult), 2 Lf tetanus tox oid, preservative free, adsorbed 04/28/2024,03/26/2010 Tdap 10/01/2013 Zoster, Recombinant 12/04/2022,09/19/2022 Social History Tobacco Use Types Packs/Day Years Used Date Smoking Tobacco: Never Passive Smoke Exposure: Never Smokeless Tobacco: Never Tobacco Cessation:Counseling Given: Not Answered Alcohol Use Standard Drinks/Week Comments Never 0 (1 standard drink = 0.6 oz pur e alcohol) Alcohol Answer Date Recorded Frequency of Alcohol Consumption Not on file 04/21/2024 Average Number of Drinks Not on file 024 Frequency of Binge Drinking Not on file 06/0 03/2024 Score 0 04/21/2024 Depression Answer Date Recorded Patient Health Questionnaire-9 Score 0 06/30/2024 Patient Health Questionnaire-9 Score 0 06/30/2024 Last PHQ-9: Questionnaire Data Not on file 0 06/30/2024 Housing Stability Answer Date Recorded What is your housing situation today? I have sly huntley 06/30/[address] you li ve. Do you have problems with any of the following? None of the above 06/30/2024 Food Insecurity Answer Date Recorded Within the past 12 months, y ou worried that your food would run out before you got money to buy more: Never True 06/30/2024 Within the past 12 months,th e food you bought just didn't last and you didn't have enough money to get more: Never True Transportation Answer Date Recorded In the past 12 months, has l ack of transportation kept you from medical appts, meetings, work or from getting things needed for daily living? No 06/30/2024 Utilities Answer Date Recorded In the past 12 months, has t he electric, gas, oil or water company threatened to shut off services in your home? No 06/30/2024 Depression Answer Date Recorded Patient Health Questionnaire-2 Score 0 06/30/2024 Internet Access Answer Date Recorded Internet Access Q1 Yes 07/19/2024 Internet Access Q2 Not on file 07/19/2024 Comments Unknown Sex and Gender Information Value Date Recorded Sex Assigned at Female 09/16/2022 10:21 AM EDT Legal Sex Female 10:21 AM EDT Gender Identity Female 09/16/2022 10:21 AM EDT Sexual Orientation Straight 09/16/2022 10 :21 AM EDT Last Filed Vital Signs Vital Sign Reading Time Taken Comments Blood Pressure 126/82 09/17/2024 11:04 AM EDT Pulse 68 09/17/2024 10:48 AM EDT Temperature 36.3 ??C (97.4 ??F) 09/17/2024 10:48 AM E DT Respiratory Rate 21 09/17/2024 10:48 AM EDT Oxygen Saturation 96% 09/17/2024 10:48 AM EDT Inhaled Oxygen Concentration - - Weight 77.2 kg (170 lb 3.2 oz) 09/17/2024 10:48 AM EDT Height 152.4 cm (5') 09/17/2024 10:48 AM EDT Body Mass Index 33.24 09/17/2024 10:48 AM EDT Plan of Treatment Upcoming Encounters Date Type Department Care Team (Late st Contact Info) Description 03/22/2025 3:15 PM EDT Office Visit [facility] [address] [place] [address] Name, MD Keyur [address] [place] [address] Health Maintenance Due Date Last Done Comments CT Colonography 1965 Dental Oral Exam 1965 Dental X-Ray: Bitewings 1965 Dental X-Ray: Full Mouth 1965 FIT DNA/Cologuard 1965 FIT 1965 FOBT 1965 Sigmoidoscopy 1965 Pneumococcal Vaccine: 50+ Years (1 of 1 - PCV) 2015 Dental Prophylaxis 04/25/2023 10/24/2022 COVID-19 Vaccine ( season) 2024 11/27/2021, 04/03/2021, 03/09/2021 Influenza Vaccine (#1) 2024 , 08/07/2020, 09/19/2014, Additional history exists Cervical Cancer Screening 08/12/2024 HPV/Cotest 08/12/2024 08/11/2019 Pap Smear 08/12/2024 08/12/2019 Hepatitis B Vaccines (2 of 3 - 19+ 3-dose series) 10/18/2024 09/20/2024 Alcohol/Substance Use Screening 04/21/2025 04/21/2024 Depression Screening 06/30/2025 06/30/2024, 06/30/20 24 SDOH Screening 06/30/2025 06/30/2024 Tobacco Screening 09/17/2025 09/17/2024 Mammogram 05/12/2026 05/12/2024, 0601/2023, 05/09/2023, Additional history exists Colonoscopy 06/10/2027 06/10/2017 Colorectal Cancer Screening 06/10/2027 Lipid Panel 09/17/2029 09/17/2024, 04/17, 07/18/2022, Additional history exists DTaP/Tdap/Td Vaccines (3 - Td or Tdap) 04/28/2034 04/28/2024, 10/01/2013, 03/26/2010 RSV Patients and Patients Aged 60 years or older (1 - 1-dose 75+ series) 2040 HIV Screening Completed 04/24/2017 Hepatitis C Screening Completed 04/24/2017 Zoster Vaccines Completed 12/04/2022, 09/19/2022 HIB Vaccines Aged Out No longer eligi ble based on patient's age to complete this topic HPV Vaccines Aged Out No longer eligi ble based on patient's age to complete this topic Hepatitis A Vaccines Aged Out No long er eligible based on patient's age to complete this topic IPV Vaccines Aged Out No longer eligi ble based on patient's age to complete this topic Meningococcal Vaccine Aged Out No gloria roxy eligible based on patient's age to complete this topic RSV under 20 months Aged Out No longe r eligible based on patient's age to complete this topic Rotavirus Vaccines Aged Out No longer eligible based on patient's age to complete this topic Procedures Procedure Name Priority Date/Time Associated Diagnosis Comments LIPID PANEL, STANDARD Routine 09/17/2024 11:20 AM EDT PE (physical exam), annual BI MAMMOGRAM SCREENING TOMOSYNTHESIS BILATERAL Routine 05/12/2024 12:34 PM EDT Full PROPHYLAXIS - ADULT Routine 10/24/2022 1:00 PM EST HM PAP/HPV Routine 08/12/2019 12:00 AM EDT ZZZ HISTORICAL HPV MRNA E6/E7 Routine 08/11/2019 9:34 AM EDT HM COLONOSCOPY Routine 06/10/2017 2:50 PM EDT HM HEPATITIS C ANTIBODY Routine 04/24/2017 HM HIV 1/2 ANTIGEN AND ANTIBODY Routine 04/24/2017 from Last 3 Months or Most Recently Relevant to Health Maintenance Results * (ABNORMAL) Lipid Panel, Standard (09/17/2024 11:20 AM EDT) Triglycerides 74 <150 mg/dL [facility] Comment:Desirable Triglyceri de: less than 150 mg/dLBorderline High Triglyceride 150-199 mg/dLHigh Triglyceride: 200-499 mg/dLVery High Triglyceride: greater than or equal to 5OO mg/dL Cholesterol 188 <200 mg/dL [facility] Comment:Desirable Cholestero l: less than 200 mg/dLBorderline High Cholesterol: 200-239 mg/dLHigh Cholesterol: greater than 239 mg/dL LDL Cholesterol Calculated 118(H) <100 mg/dL [facility] Comment:Desirable LDL: less than 100 mg/dLNear Optimal/Above Optimal LDL: 110- 129 mg/dLBorderline High LDL: 130-159 mg/dLHigh LDL: 160-189 mg/dLVery High LDL: greater than or equal to 190 mg/dL HDL Cholesterol 56 >40 mg/dL [facility] Comment:Desirable HDL: great er than 40 mg/dL Note: This HDL assay may give artificially low results in patients with liver disease. Blood Venous blood specimen / Unknown 09/17/2024 11:20 AM EDT 09/17/2024 1:28 PM EDT us Keyur Name MD LAB BLOOD ORDERABLES Final Resul t [facility] [address] [place] [address] [phone] * BI Mammogram Screening Tomosynthesis Bilateral (05/12/2024 12:34 PM EDT) Anatomical Region Laterality Modality Breast Bilateral Mammography 05/12/2024 12:3 4 PM EDT Narrative 06/11/2024 8:13 AM EDT ? [facility] ? [address] ?[place] [address] ? Mammography Report ? Signed ? Patient: Mayes Cr,Celena ?MR#: ?? [id number] ? : 1965 ?Acct:[id number] ? Age/Sex: 58 / F ?ADM Date: 05/12/24 ? Loc: HO.MAMMO ? Attending Dr: Keyur Crawford MD ? Ordering Physician: Keyur Crawford MD ?Results: 1Negative ? Date of Service: 05/12/24 ?Follow Up: 1 Year From Orig ?? inal Mammogram ? Procedure(s): MM tomosynthesis screening BI ?? Accession Number(s): [id number] ? cc: Yvette,Keyur VANG ? EXAMINATION: ?? MM SCREENING DIGITAL BREAST TOMOSYNTHESIS, BILATERAL ? CLINICAL INFORMATION: ? Screening. Asymptomatic. ? COMPARISON: ?? Mammography: This study is compared with prior exams dating back to ?? 2019. ? TECHNIQUE: ?? Digital breast tomosynthesis is performed in both the craniocaudal and ?? mediolateral oblique views along with computer-aided detection (CAD). ?? Synthesized 2D images are generated from the tomosynthesis. ? FINDINGS: ?? The breasts are heterogeneously dense, which may obscure small masses ?? (ACR BI-RADS breast composition Category c). ? There are no significant masses, abnormal calcifications, or other ?? abnormalities. ? MM/MM tomosynthesis screening BI ?? IMPRESSION: ?? No mammographic evidence of malignancy. ? ASSESSMENT: ? BI-RADS BI-RADS 1 - Negative ? RECOMMENDATION: ?? Routine annual mammography screening. ? 1 year F/U ? This examination should not preclude the clinical evaluation of a ?? suspicious palpable abnormality. ? This patient's information was entered into a reminder system with a ?? target due date for their next mammogram. ? Dictated By: ?Janna Mathew MD ? Signed By: ?<Electronically signed by Janna Mathew MD in OV> ? 06/11/ 0810 ? DD/ 1234 ? TD/TT: ? Distribution Center Associate: ? Procedure Note Donotkathrineinterpreter, Image - 06/11/2024 [facility] [address] [place] [address] Mammography Report Signed Patient: Matthew KwanR#: [id number] : 1965Acct:[id number] Age/Sex: 58 / FADM Date: 05/12/24 Loc: HO.MAMMO Attending Dr: Keyur Crawford MD Ordering Physician: Keyur Crawfordults: 1Negative Date of Service: 05/12/24Follow Up: 1 Year From Orig inal Mammogram Procedure(s): MM tomosynthesis screening BI Accession Number(s): [id number] cc: Keyur Crawford MD EXAMINATION: MM SCREENING DIGITAL BREAST TOMOSYNTHESIS, BILATERAL CLINICAL INFORMATION: Screening. Asymptomatic. COMPARISON: Mammography: This study is compared with prior exams dating back to 2019. TECHNIQUE: Digital breast tomosynthesis is performed in both the craniocaudal and mediolateral oblique views along with computer-aided detection (CAD). Synthesized 2D images are generated from the tomosynthesis. FINDINGS: The breasts are heterogeneously dense, which may obscure small masses (ACR BI-RADS breast composition Category c). There are no significant masses, abnormal calcifications, or other abnormalities. MM/MM tomosynthesis screening BI IMPRESSION: No mammographic evidence of malignancy. ASSESSMENT: BI-RADS BI-RADS 1 - Negative RECOMMENDATION: Routine annual mammography screening. 1 year F/U This examination should not preclude the clinical evaluation of a suspicious palpable abnormality. This patient's information was entered into a reminder system with a target due date for their next mammogram. Dictated By: Janna Mathew MD Signed By: <Electronically signed by Janna Mathew MD in OV> 06/11/24 0810 DD/ 1234 TD/TT: Distribution Center Associate: Keyur Crawford MD IMG BI PROCEDURES Final Result * Hm Pap Smear (08/12/2019 12:00 AM EDT) Historical Provider HEALTH MAINTENANCE Final Result * HPV mRNA E6/E7 (08/11/2019 9:34 AM EDT) HPV mRNA E6/E7 Not Detected NOT DETECTED [facility] Comment: This test was performed using the APTIMA(R) HPV Assay ([employer] This assay detects E6/E7 viral messenger RNA (mRNA) from 14 high-risk HPV types (16,18,31,33,35,39,45,51, 52,56,58,59,66,68). For additional information please refer to: http://education.[employer]/faq/FPZ808e4 (This link is being provided for informational/ educational purposes only.) The analytical performance characteristics of this assay have been determined by [employer] [place], [place]. The modifications have not been cleared or approved by the FDA. This assay has been validated pursuant to the CLIA regulations and is used for clinical purposes. Test Performed by [employer], [facility], [address] [place] [address] Mingo Langford M.D., Ph.D., Director of Laboratories , CLIA [id number] Please note: ??Effective 07/29/2016, HPV testing will be performed using [employer]'s APTIMA test which targets mRNA. Detecting mRNA instead of DNA, as in older methods, offers significant improvements in specificity. 08/11/2019 9:34 AM EDT Milena Murphy CNM HISTORICAL/NON ORDERABLE LABS Final Result [facility] [address] [place] [address], * Colonoscopy (06/10/2017 2:50 PM EDT) Colonoscopy Normal Normal Narrative Annette Yen - 06/10/2017 2:50 PM EDT Recommended 10 year follow up us Historical Provider MD HEALTH MAINTENANCE Final Result * Hepatitis C Antibody (04/24/2017) Hepatitis C Antibody Nonreactive Blood Sonya Romero DO HEALTH MAINTENANCE Final Res ult * HIV 1/2 Antigen and Antibody (04/24/2017) HIV Ag/Ab Nonreactive Sonya Romero DO HEALTH MAINTENANCE Final Res ult from Last 3 Months or Most Recently Relevant to Health Maintenance Insurance Izzui C3 Izzui C3 [employer] [facility] MEDICAID STAND ADULT Care Teams Reproduction Technician Relationship Specialty Start Date End Date Name, MD Keyur [address] [place] [address] PCP - General Family Medicine 01/04/16
--- OUTSIDE RECORDS SUMMARY | 2025-02-28 15:59 | XMS_ITS | Encounter Summary ---
Author Organization [employer] Address [address] [place] [address] 7t [place] [address] Care Team Providers Care Actuarial Manager Name Role Phone Name, Keyur VAGN Primary Care Provider [phone] Encounter Details Date Type Department Care Team (Late Contact Info) Description 01/13/2023 Orders Only [facility] [address] [place], [place] [phone] Sonya Cervantes LPN Social History Tobacco Use Types Packs/Day Years [...] suspected to have Coronavirus/COVID-19? No / Unsure 12/25/2022 2:37 PM EST documented as of this encounter Plan of Treatment Upcoming Encounters Date Type Department Care Team (Late st Contact Info) Description 03/22/2025 3:15 PM EDT Office Visit [facility] [address] [place], [place] [phone] Name, MD Keyur [address] [place] [address] documented as of this encounter Procedures Procedure Name Priority Date/Time Associated Diagnosis Comments HIGH SENSITIVITY TROPONIN I Routine 04/28/2023 2:07 PM EDT DRUG MONITOR, PANEL 1, SCREEN, URINE Routine 04/28/2023 2:07 PM EDT CBC WITH AUTO DIFFERENTIAL Routine 04/28/2023 2:07 PM EDT URINALYSIS WITH REFLEX MICROSCOPIC Routine 04/28/2023 2:07 PM EDT HEPATIC FUNCTION PANEL Routine 04/28/2023 2:07 PM EDT BASIC METABOLIC PANEL Routine 04/28/2023 2:07 PM EDT documented in this encounter Results * High Sensitivity Troponin I (04/28/2023 2:07 PM EDT) Pathologist [facility] [place] TROPONIN I HIGH SENSITIVITY <2.7 <3.5 - 17.0 ng/L [facility] Comment:The [place] high sens itivity Troponin-I results should beused in conjunction with other diagnostic information suchas ECG, clinical observations and information, and patientsymptoms to aid in the diagnosis of [place]. 04/28/2023 2:07 PM EDT 04/28/2023 2:14 PM EDT [facility] External Provider LAB BLO OD ORDERABLES Final Result [facility] [address] [place] [phone] * Basic Metabolic Panel (04/28/2023 2:07 PM EDT) Pathologist [facility] [place] Sodium 141 135 - 145 mmol/L [facility] Potassium 4.7 3.3 - 5.1 mmol/L [facility] Chloride 107 96 - 108 mmol/L [facility] Carbon Dioxide 25 22 - 29 mmol/L [facility] Anion Gap 14 12 - 20 [facility] Urea Nitrogen (BUN) 13 9 - 16 mg/dL [facility] Creatinine, Serum 0.87 0.5 - 1.4 mg/dL [facility] Creatinine Clr Calc Pharmacy 66.0 [facility] Comment:Provided height and weight: 154.94 cm,74.843 kg.eGFR (calculated from the MDRD study equation) and eCrCl(calculated from the Cockcroft-Gault equation) are based ondifferent parameters and may not yield comparable results.If eCrCl result is absurd, please check patient'sheight/weight. Estimated Glomerular Filt Rate >60 [facility] Comment:NOTE: For -Am erican individuals, multiply the result by 1.210.Chronic Kidney Disease: Estimated GFR < 60 mL/min/[id number] Kidney Disease: Estimated GFR < 15 mL/min/1.73m2 Glucose 105 60 - 115 mg/dL [facility] Calcium 10.0 8.4 - 10.2 mg/dL [facility] 04/28/2023 2:07 PM EDT 04/28/2023 2:14 PM EDT [facility] External Provider LAB BLO OD ORDERABLES Final Result [facility] [address] [place] [phone] * Hepatic Function Panel (04/28/2023 2:07 PM EDT) Bilirubin, Total 0.8 0.0 - 1.0 mg/dL [facility] Bilirubin, Direct 0.2 0.0 - 0.5 mg/dL [facility] Aspartate Amino Transferase 16 5 - 31 U/L [facility] Alanine Aminotransferase 16 0 - 31 U/L [facility] Total Protein 7.4 6.5 - 8.0 g/dL [facility] Albumin Level 4.4 3.5 - 5.0 g/dL [facility] Alkaline Phosphatase 112 39 - 117 U/L [facility] 04/28/2023 2:07 PM EDT 04/28/2023 2:14 PM EDT [facility] External Provider LAB BLO OD ORDERABLES Final Result Performing Organization Address [facility] de Phone Number [facility] [address] [place] [phone] * Urinalysis with reflex microscopic (04/28/2023 2:07 PM EDT) Color Urine Yellow [facility] Appearance Urine Clear [facility] PH 6.0 5.0 - 9.0 [facility] Glucose Urine UA Negative Negative mg/dL [facility] Urine Blood Negative Negative [facility] Specific [place] - Urine 1.010 1.005 - 1.025 [facility] Urine Protein Negative Neg-Trace mg/dL [facility] Urine Ketones Negative Negative mg/dL [facility] Nitrite Urine Negative Negative [facility] Leukocyte Esterase Urine Negative Negative [facility] 04/28/2023 2:07 PM EDT 04/28/2023 2:14 PM EDT Narrative [facility] - 04/28/2023 2:28 PM EDT 1341Urine, Clean Catch [facility] External Provider LAB URI NE ORDERABLES Final Result Performing Organization Address [facility] de Phone Number [facility] [address] [place] [address] [phone] * Drug Monitoring, Panel 1, Screen, Urine (04/28/2023 2:07 PM EDT) Opiate Screen Urine Not Detected Not Detect [facility] Comment:Opiate cut-off is 30 0 ng/mL.Positive results are unconfirmed and should not be used fornon-medical purposes. Barbiturates, Urine Not Detected Not Detect [facility] Comment:Barbiturate cut-off is 200 ng/mL.Positive results are unconfirmed and should not be used fornon-medical purposes. Phencyclidine Screen Urine Not Detected Not Detect [facility] Comment:Phencyclidine cut-of f is 25 ng/mL.Positive results are unconfirmed and should not be used fornon-medical purposes. Amphetamine Screen Urine Not Detected Not Detect [facility] Comment:Amphetamine cut-off is 1000 ng/mL.Positive results are unconfirmed and should not be used fornon-medical purposes. Benzodiazepines Screen Urine Not Detected Not Detect [facility] Comment:Benzodiazepine cut-o ff is 200 ng/mL.Positive results are unconfirmed and should not be used fornon-medical purposes. Cocaine Screen Urine Not Detected Not Detect [facility] Comment:Cocaine cut-off is 3 00 ng/mL.Positive results are unconfirmed and should not be used fornon-medical purposes. Cannabinoid Screen Urine Not Detected Not Detect [facility] Comment:Cannabinoid cut-off is 50 ng/mL.Positive results are unconfirmed and should not be used fornon-medical purposes. FENTANYL URINE Not Detected Not Detect [facility] Comment:Fentanyl cut-off is 1 ng/mL.Positive results are unconfirmed and should not be used fornon-medical purposes. 04/28/2023 2:07 PM EDT 04/28/2023 2:14 PM EDT [facility] External Provider LAB URI NE ORDERABLES Final Result [facility] [address] [place] [phone] * (ABNORMAL) CBC auto differential (04/28/2023 2:07 PM EDT) White Blood Count 6.6 4.8 - 10.8 X10*3/uL [facility] Red Blood Count 4.32 4.20 - 5.50 X10*6/uL [facility] Hemoglobin 12.2 12.0 - 16.0 g/dl [facility] Hematocrit 38.9 37.0 - 47.0 % [facility] Mean Corpuscular Volume 90.0 80.0 - 98.0 fL [facility] Mean Corpuscular Hemoglobin 28.2 27.0 - 33.0 pg [facility] Mean Corpuscular HGB Conc 31.4 31.0 - 35.0 g/dl [facility] Red Cell Distribution Width 12.1 11.0 - 16.0 % [facility] Platelet Count 233 160 - 400 X10*3/uL [facility] Mean Platelet Volume 12.1 9.4 - 12.3 fL [facility] Neutrophils Percent Auto 79.2(H) 45 - 73 % [facility] Imm Gran Pct Auto 0.3 0.0 - 0.4 % [facility] Lymphocytes Percent Auto 16.5(L) 20 - 40 % [facility] Monocytes Percent Auto 2.9 2 - 11 % [facility] Eosinophils Percent Auto 0.5 0 - 4 % [facility] Basophils Percent Auto 0.6 0 - 2 % [facility] NRBC Pct Auto 0.0 0.0 - 0.2 /100WBC [facility] Neutrophils Absolute Auto 5.2 2.0 - 8.3 x10*3/uL [facility] Imm Gran Abs Auto 0.02 0.00 - 0.03 X10*3/uL [facility] Lymphocytes Absolute Auto 1.1(L) 1.2 - 4.9 X10*3/uL [facility] Monocytes Absolute Auto 0.2 0.1 - 1.2 X10*3/uL [facility] Eosinophils Absolute Auto 0.0 0.0 - 0.4 X10*3/uL [facility] Basophils Absolute Auto 0.0 0.0 - 0.2 X10*3/uL [facility] NRBC Abs Auto 0.000 0.0 - 0.012 X10*3/uL [facility] 04/28/2023 2:07 PM EDT 04/28/2023 2:14 PM EDT us [facility] External Provider LAB BLO OD ORDERABLES Final Result [facility] [address] [place] [phone] [phone] documented in this encounter Visit Diagnoses Not on filedocumented in this encounter Care Teams Actuarial Manager Relationship Specialty Start Date End Date Name, MD Keyur [address] [place] [address] PCP - General Family Medicine 01/04/16 documented as of this encounter
--- OUTSIDE RECORDS SUMMARY | 2025-02-28 15:59 | XMS_ITS | Encounter Summary ---
Author Organization [employer] Address [address] [facility] [address] [place] [address] Care Team Providers Care Sticker Operator Name Role Phone Name, Keyur VANG Primary Care Provider Reason for Visit * Reason Comments Med Refill Encounter Details Date Type Department Care Team (Late st Contact Info) Description 02/23/2025 Refill [facility] [address] [place], [place] [phone] Name, MD Keyur [address] [place] [address] Chronic low back pain, unspecified back pain laterality, unspecified whether sciatica present Social History Tobacco Use Types Packs/Day Years Used Date Smoking Tobacco: Never Passive Smoke Exposure: Never Smokeless Tobacco: Never Alcohol Use Standard Drinks/Week Comments Never 0 (1 standard drink = 0.6 oz pur e alcohol) Alcohol Answer Date Recorded Frequency of Alcohol Consumption Not on file 04/21/2024 Average Number of Drinks Not on file 024 Frequency of Binge Drinking Not on file 03/2024 Score 0 04/21/2024 Depression Answer Date [...] Description 03/22/2025 3:15 PM EDT Office Visit [facility] [address] [place] [phone] NameKeyur MD [address] [place] [phone] documented as of this encounter Visit Diagnoses Diagnosis Chronic low back pain, unspecified back pain laterality, unspecified whether sciatica present documented in this encounter Additional Health Concerns Assessment Noted Time PHQ-9 Depression Total Score: 0 06/30/20 24 3:03 PM EDT documented as of this encounter Care Teams Sticker Operator Relationship Specialty Start Date End Date NameKeyur MD [address] [place] [phone] PCP - General Family Medicine 01/04/16 documented as of this encounter
== END 2025-02-28 14:29 | disposition home or self-care (01) ==
LOC: HO.HGI 13:47
PROVIDERS: PCP Internal Medicine Geriatric Medicine; Visit Provider Nurse Practitioner Family
DX: R10.11 Right upper quadrant pain (principal); R14.0 Abdominal distension (gaseous)
CPT/HCPCS: 99214

== ENCOUNTER → 2025-02-28 13:47 | Outpatient (BNVA) | payer MEDICAID, SELFPAY | PROVIDERS: PCP Internal Medicine Geriatric Medicine; Visit Provider Nurse Practitioner Family | DX: R10.11 Right upper quadrant pain (principal); R14.0 Abdominal distension (gaseous) | CPT/HCPCS: 99212 ==

== ENCOUNTER → 2025-03-18 07:50 | Outpatient (REF) | payer MEDICAID, SELFPAY ==
--- NOTE | ~2025-03-18 | NM_ITS ---
EXAMINATION: NM HEPATOBILIARY WITH PHARM HISTORY: R10.11 - Right upper quadrant pain. TECHNIQUE: An hepatobiliary scan was performed following the intravenous administration of 5 mCi technetium 99m-mebrofenin. Sequential images were obtained over 1 hour. Subsequently, the patient received 1.5 microgram of IV CCK over 30 minutes and additional imaging was performed. COMPARISON: Correlation is made with an abdominal ultrasound dated 03/17/2024. FINDINGS: There is normal uptake and excretion of the radiopharmaceutical by the liver. Gallbladder activity is noted at 14 minutes. Common bile duct activity is seen at 15 minutes. Small bowel activity is noted at 66 minutes. After the administration of intravenous CCK, the estimated gallbladder ejection fraction is 87%, which is within normal limits (normal 35-80%). NM/NM hepatobiliary w pharm IMPRESSION: Normal hepatobiliary scan with normal gallbladder ejection fraction. Electronically signed by: Matt Bauer MD 03/18/2025 10:28 AM EDT
--- OUTSIDE RECORDS SUMMARY | 2025-03-18 07:54 | XMS_ITS | Encounter Summary ---
Author Organization [employer] Address [address] [place] [address] 7t [place] [address] Care Team Providers Care Driver Examiner Name Role Phone Name, Keyur VANG Primary Care Provider [phone] Encounter Details Date Type Department Care Team ([facility] st Contact Info) Description 04/21/2023 Abstract [facility] [address] [place], [place] [phone] Name, MD Keyur [address] [place] [address] Social History Tobacco Use Types Packs/Day Years [...] as of this encounter Plan of Treatment Not on file documented as of this encounter Procedures Procedure Name Priority Date/Time Associated Diagnosis Comments HM PAP/HPV Routine 08/12/2019 12:00 AM EDT HM COLONOSCOPY Routine 06/10/2017 2:50 PM EDT documented in this encounter Results * Hm Pap Smear (08/12/2019 12:00 AM EDT) us Historical Provider HEALTH MAINTENANCE Final Result * Hm Colonoscopy (06/10/2017 2:50 PM EDT) Colonoscopy Normal Normal Narrative Annette Yen - 06/10/2017 2:50 PM EDT Recommended 10 year follow up us Historical Provider HEALTH MAINTENANCE Final Result documented in this encounter Visit Diagnoses Not on filedocumented in this encounter Care Teams Driver Examiner Relationship Specialty Start Date End Date Name, MD Keyur [address] [place] [address] PCP - General Family Medicine 01/04/16 documented as of this encounter
--- OUTSIDE RECORDS SUMMARY | 2025-03-18 07:54 | XMS_ITS | Encounter Summary ---
Author Organization [employer] Address [address] [place] [address] 7 [place] [address] Care Team Providers Care Telemarketing Agent Name Role Phone Name, Keyur VANG Primary Care Provider [phone] Encounter Details Date Type Department Care Team (Late st Contact Info) Description 06/24/2023 Abstract [facility] [address] [place], [place] [phone] Asia Granado DDS [address] [place], [place] [phone] Social History Tobacco Use Types Packs/Day Years [...] on file documented as of this encounter Visit Diagnoses Not on filedocumented in this encounter Additional Health Concerns Assessment Noted Time PHQ-9 Depression Total Score: 0 05/01/20 23 11:08 AM EDT documented as of this encounter Care Teams Telemarketing Agent Relationship Specialty Start Date End Date Name, MD Keyur [address] [place] [address] PCP - General Family Medicine 01/04/16 documented as of this encounter
--- OUTSIDE RECORDS SUMMARY | 2025-03-18 07:54 | XMS_ITS | Encounter Summary ---
Author Organization [employer] Address [address] [place] [address] [address] [place] [address] Care Team Providers Care Material Handler 1St Shift Name Role Phone Name, Keyur VANG Primary Care Provider [phone] Encounter Details Date Type Department Care Team (Late st Contact Info) Description 01/13/2023 Orders Only [facility] [address] [place] [address] Sonya Cervantes LPN Social History Tobacco Use [...] Sensitivity Troponin I (04/28/2023 2:07 PM EDT) TROPONIN I HIGH SENSITIVITY <2.7 <3.5 - 17.0 ng/L [facility] Comment:The [place] high sens itivity Troponin-I results should beused in conjunction with other diagnostic information suchas ECG, clinical observations and information, and patientsymptoms to aid in the diagnosis of [place]. 04/28/2023 2:07 PM EDT 04/28/2023 2:14 PM EDT [facility] External Provider LAB BLO OD ORDERABLES Final Result [facility] [address] [place] [phone] * Basic Metabolic Panel (04/28/2023 2:07 PM EDT) Pathologist [facility] Sodium 141 135 - 145 mmol/L [facility] Potassium 4.7 3.3 - 5.1 mmol/L [facility] Chloride 107 96 - 108 mmol/L [facility] Carbon Dioxide 25 22 - 29 mmol/L [facility] Anion Gap 14 12 - 20 [facility] Urea Nitrogen (BUN) 13 9 - 16 mg/dL [facility] Creatinine, Serum 0.87 0.5 - 1.4 mg/dL [facility] Creatinine Clr Calc Pharmacy 66.0 [facility] Comment:Provided height and weight: 154.94 cm,74.843 kg.eGFR (calculated from the MDRD study equation) and eCrCl(calculated from the Cockcroft-Gault equation) are based ondifferent parameters and may not yield comparable results.If eCrCl result is absurd, please check patient'sheight/weight. Estimated Glomerular Filt Rate >60 [facility] Comment:NOTE: For -Am erican individuals, multiply the result by 1.210.Chronic Kidney Disease: Estimated GFR < 60 mL/min/[id number] Kidney Disease: Estimated GFR < 15 mL/min/1.73m2 Glucose 105 60 - 115 mg/dL [facility] Calcium 10.0 8.4 - 10.2 mg/dL [facility] 04/28/2023 2:07 PM EDT 04/28/2023 2:14 PM EDT [facility] External Provider LAB BLO OD ORDERABLES Final Result Performing Organization Address [facility] Co de Phone Number [facility] [address] [place] [phone] * Hepatic Function Panel (04/28/2023 2:07 PM EDT) Bilirubin, Total 0.8 0.0 - 1.0 mg/dL [facility] Bilirubin, Direct 0.2 0.0 - 0.5 mg/dL [facility] Aspartate Amino Transferase 16 5 - 31 U/L [facility] Alanine Aminotransferase 16 0 - 31 U/L [facility] Total Protein 7.4 6.5 - 8.0 g/dL [facility] Albumin Level 4.4 3.5 - 5.0 g/dL [facility] Alkaline Phosphatase 112 39 - 117 U/L [facility] 04/28/2023 2:07 PM EDT 04/28/2023 2:14 PM EDT [facility] External Provider LAB BLO OD ORDERABLES Final Result Performing Organization Address [facility] Co de Phone Number [facility] [address] [place] [phone] * Urinalysis with reflex microscopic (04/28/2023 2:07 PM EDT) Color Urine Yellow [facility] Appearance Urine Clear [facility] PH 6.0 5.0 - 9.0 [facility] Glucose Urine UA Negative Negative mg/dL [facility] Urine Blood Negative Negative [facility] Specific [place] - Urine 1.010 1.005 - 1.025 [facility] Urine Protein Negative Neg-Trace mg/dL [facility] Urine Ketones Negative Negative mg/dL [facility] Nitrite Urine Negative Negative [facility] Leukocyte Esterase Urine Negative Negative [facility] 04/28/2023 2:07 PM EDT 04/28/2023 2:14 PM EDT Narrative [facility] - 04/28/2023 2:28 PM EDT 1341Urine, Clean Catch us [facility] External Provider LAB URI NE ORDERABLES Final Result [facility] [address] [place] [address] [phone] * Drug Monitoring, Panel 1, Screen, Urine (04/28/2023 2:07 PM EDT) Opiate Screen Urine Not Detected Not Detect [facility] Comment:Opiate cut-off is 30 0 ng/mL.Positive results are unconfirmed and should not be used fornon-medical purposes. Barbiturates, Urine Not Detected Not Detect [facility] Comment:Barbiturate cut-off is 200 ng/mL.Positive results are unconfirmed and should not be used fornon-medical purposes. Phencyclidine Screen Urine Not Detected Not Detect [facility] Comment:Phencyclidine cut-of f is 25 ng/mL.Positive results are unconfirmed and should not be used fornon-medical purposes. Amphetamine Screen Urine Not Detected Not Detect [facility] Comment:Amphetamine cut-off is 1000 ng/mL.Positive results are unconfirmed and should not be used fornon-medical purposes. Benzodiazepines Screen Urine Not Detected Not Detect [facility] Comment:Benzodiazepine cut-o ff is 200 ng/mL.Positive results are unconfirmed and should not be used fornon-medical purposes. Cocaine Screen Urine Not Detected Not Detect [facility] Comment:Cocaine cut-off is 3 00 ng/mL.Positive results are unconfirmed and should not be used fornon-medical purposes. Cannabinoid Screen Urine Not Detected Not Detect [facility] Comment:Cannabinoid cut-off is 50 ng/mL.Positive results are unconfirmed and should not be used fornon-medical purposes. FENTANYL URINE Not Detected Not Detect [facility] Comment:Fentanyl cut-off is 1 ng/mL.Positive results are unconfirmed and should not be used fornon-medical purposes. 04/28/2023 2:07 PM EDT 04/28/2023 2:14 PM EDT [facility] External Provider LAB URI NE ORDERABLES Final Result [facility] [address] [place] [phone] [phone] * (ABNORMAL) CBC auto differential (04/28/2023 2:07 PM EDT) White Blood Count 6.6 4.8 - 10.8 X10*3/uL [facility] Red Blood Count 4.32 4.20 - 5.50 X10*6/uL [facility] Hemoglobin 12.2 12.0 - 16.0 g/dl [facility] Hematocrit 38.9 37.0 - 47.0 % [facility] Mean Corpuscular Volume 90.0 80.0 - 98.0 fL [facility] Mean Corpuscular Hemoglobin 28.2 27.0 - 33.0 pg [facility] Mean Corpuscular HGB Conc 31.4 31.0 - 35.0 g/dl [facility] Red Cell Distribution Width 12.1 11.0 - 16.0 % [facility] Platelet Count 233 160 - 400 X10*3/uL [facility] Mean Platelet Volume 12.1 9.4 - 12.3 fL [facility] Neutrophils Percent Auto 79.2(H) 45 - 73 % [facility] Imm Gran Pct Auto 0.3 0.0 - 0.4 % [facility] Lymphocytes Percent Auto 16.5(L) 20 - 40 % [facility] Monocytes Percent Auto 2.9 2 - 11 % [facility] Eosinophils Percent Auto 0.5 0 - 4 % [facility] Basophils Percent Auto 0.6 0 - 2 % [facility] NRBC Pct Auto 0.0 0.0 - 0.2 /100WBC [facility] Neutrophils Absolute Auto 5.2 2.0 - 8.3 x10*3/uL [facility] Imm Gran Abs Auto 0.02 0.00 - 0.03 X10*3/uL [facility] Lymphocytes Absolute Auto 1.1(L) 1.2 - 4.9 X10*3/uL [facility] Monocytes Absolute Auto 0.2 0.1 - 1.2 X10*3/uL [facility] Eosinophils Absolute Auto 0.0 0.0 - 0.4 X10*3/uL [facility] Basophils Absolute Auto 0.0 0.0 - 0.2 X10*3/uL [facility] NRBC Abs Auto 0.000 0.0 - 0.012 X10*3/uL [facility] 04/28/2023 2:07 PM EDT 04/28/2023 2:14 PM EDT [facility] External Provider LAB BLO OD ORDERABLES Final Result [facility] [address] [place] [phone] [phone] documented in this encounter Visit Diagnoses Not on filedocumented in this encounter Care Teams Material Handler 1St Shift Relationship Specialty Start Date End Date Name, MD Keyur [address] [place] [phone] PCP - General Family Medicine 01/04/16 documented as of this encounter
--- OUTSIDE RECORDS SUMMARY | 2025-03-18 07:54 | XMS_ITS | Clinical Summary ---
Author Organization [employer] Address [address] [place] [address] [address] [place] [address] Care Team Providers Care Handyperson Name Role Phone Name, Keyur VANG Primary Care Provider [phone] Allergies No known active allergies Medications * [...] OR CHEW 60 tablet 02/25/20 25 Active melatonin 10 MG tablet Take 1 tablet (10 mg) by mouth Once per day. 30 tablet 11 03/02/20 25 2025 Active lidocaine (Lidoderm) 5 % patch APPLY [...] from OP therapy service. At this time Ceelna Mayes meets criteria for Visit Diagnoses: Problem List Items Addressed This Visit Other Grief Patient ready to address current needs Yes Strengths include reaching out for help PLAN: 1. Follow up with [facility] [place]: Not recommended for follow-up 2. Patient goal [...] Encounters Date Type Department Care Team Description 03/02/2025 11:30 AM EDT Office Visit [facility] [address] [place] [address] NameKeyur MD Chronic pain of left knee (Primary Dx); Insomnia due to psychological stress 03/02/2025 Travel 03/01/2025 Telephone [facility] [address] [place] [address] Sarah Tenorio MA chart prep 02/23/2025 Refill [facility] [address] [place] [address] NameKeyur MD Chronic low back pain, unspecified back pain laterality, unspecified whether sciatica present 01/28/2025 Population Health Risk Score [facility] [address] [id number] Provider, Population Health Generic from [...] your housing situation today? I have sly hnutley 06/30/[address] you li [...] Sign Reading Time Taken Comments Blood Pressure 135/84 03/02/2025 11:45 AM EDT Pulse 94 03/02/2025 11:45 AM EDT Temperature 35.6 ??C (96 ??F) 03/02/2025 11:45 AM EDT Respiratory Rate 16 03/02/2025 11:45 AM EDT Oxygen Saturation 97% 03/02/2025 11:45 AM EDT Inhaled Oxygen Concentration - - Weight 72.6 kg (160 lb) 03/02/2025 11:45 AM EDT Height 152.4 cm (5') 03/02/2025 11:45 AM EDT Body Mass Index 31.25 03/02/2025 11:45 AM EDT Plan of Treatment Health Maintenance Due Date Last Done Comments [...] 2024 , 08/07/2020, 09/19/2014, Additional history exists HPV/Cotest 08/12/2024 08/11/2019 Pap Smear 08/12/2024 08/12/2019 Hepatitis B Vaccines (2 of 3 - 19+ 3-dose series) 10/18/2024 09/20/2024 Alcohol/Substance Use Screening 04/21/2025 04/21/2024 Depression Screening 06/30/2025 06/30/2024, 06/30/20 24 SDOH Screening 06/30/2025 06/30/2024 Tobacco Screening 03/02/2026 03/02/2025 Mammogram 05/12/2026 05/12/2024, 04/18, 05/09/2023, Additional history exists Colonoscopy 06/10/2027 06/10/2017 Colorectal Cancer Screening 06/10/2027 Lipid Panel 09/17/2029 09/17/2024, 04/17, 07/18/2022, Additional history exists Cervical Cancer Screening 01/25/2030 Po stponed from 08/12/2024 (Other Medical Reasons) DTaP/Tdap/Td Vaccines (3 - Td or Tdap) [...] 11:20 AM EDT) Triglycerides 74 <150 mg/dL [facility] Comment:Desirable Triglyceri de: less than 150 mg/dLBorderline High Triglyceride 150-199 mg/dLHigh Triglyceride: 200-499 mg/dLVery High Triglyceride: greater than or equal to 5OO mg/dL Cholesterol 188 <200 mg/dL [facility] Comment:Desirable Cholestero l: less than 200 mg/dLBorderline High Cholesterol: 200-239 mg/dLHigh Cholesterol: greater than 239 mg/dL LDL Cholesterol Calculated 118(H) <100 mg/dL [facility] Comment:Desirable LDL: less than 100 mg/dLNear Optimal/Above Optimal LDL: 110- 129 mg/dLBorderline High LDL: 130-159 mg/dLHigh LDL: 160-189 mg/dLVery High LDL: greater than or equal to 190 mg/dL HDL Cholesterol 56 >40 mg/dL [facility] Comment:Desirable HDL: great er than 40 mg/dL Note: This HDL assay may give artificially low results in patients with liver disease. Blood Venous blood specimen / Unknown 09/17/2024 11:20 AM EDT 09/17/2024 1:28 PM EDT us Keyur Name LAB BLOOD ORDERABLES Final Resul t [facility] [address] [place] [phone] * BI Mammogram Screening Tomosynthesis Bilateral (05/12/2024 12:34 PM EDT) Anatomical Region Laterality Modality Breast Bilateral Mammography 05/12/2024 12:3 4 PM EDT Narrative 06/11/2024 8:13 AM EDT ? [facility] ? [address] ?[place] [address] ? Mammography Report ? Signed ? Patient: Mayes Cr,Celena ?MR#: ?? [id number] ? : 1965 ?Acct:[id number] ? Age/Sex: 58 / F ?ADM Date: 05/12/24 ? Loc: HO.MAMMO ? Attending : Keyur Crawford MD ? Ordering Physician: Yvette,Keyur VANG ?Results: 1Negative ? Date of Service: 05/12/24 ?Follow Up: 1 Year From Orig ?? inal Mammogram ? Procedure(s): MM tomosynthesis screening BI ?? Accession Number(s): [id number] ? cc: Name,Keyur VANG ? EXAMINATION: ?? MM SCREENING DIGITAL [...] by Janna Mathew MD in OV> ? 06/11/24809 ? DD/ 1234 ? TD/TT: ? Watch Engineer: ? Procedure Note Donotuseinterpreter, Image - 06/11/2024 [facility] [address] [place] [address] Mammography Report Signed Patient: Matthew KwanR#: [id number] : 1965Acct:[id number] Age/Sex: 58 / FADM Date: 05/12/24 Loc: HO.MAMMO Attending Dr: Keyur Crawford MD Ordering Physician: Keyur Crawfordesults: 1Negative Date of Service: 05/12/24Follow Up: 1 Year From Orig inal Mammogram Procedure(s): MM tomosynthesis screening BI Accession Number(s): [id number] cc: Keyur Crawford MD EXAMINATION: MM SCREENING [...] in OV> 06/11/24 0810 DD/ 1234 TD/TT: Watch Engineer: Keyur Name IMG BI PROCEDURES Final Result * Hm Pap Smear (08/12/2019 12:00 AM EDT) Historical Provider HEALTH MAINTENANCE Final Result * HPV mRNA E6/E7 (08/11/2019 9:34 AM EDT) HPV mRNA E6/E7 Not Detected NOT DETECTED [facility] Comment: This test was performed using the APTIMA(R) HPV Assay ([employer] This assay detects E6/E7 viral messenger RNA (mRNA) from 14 high-risk HPV types (16,18,31,33,35,39,45,51, 52,56,58,59,66,68). For additional information please refer to: http://education.Kampyle/faq/YYL148j9 (This link is being provided for informational/ educational purposes only.) The analytical performance characteristics of this assay have been determined by [employer], [place]. The modifications have not been cleared or approved by the FDA. This assay has been validated pursuant to the CLIA regulations and is used for clinical purposes. Test Performed by [facility], [facility] [place], [address] [place] [address] Mingo Langford M.D., Ph.D., Director of Laboratories , CLIA [id number] Please note: ??Effective 07/29/2016, HPV testing will be performed using [employer]'s APTIMA test which targets mRNA. Detecting mRNA instead of DNA, as in older methods, offers significant improvements in specificity. 08/11/2019 9:34 AM EDT us Milena Murphy CNM HISTORICAL/NON ORDERABLE LABS Final Result [facility] [address] * Colonoscopy (06/10/2017 2:50 PM EDT) Colonoscopy [...] Most Recently Relevant to Health Maintenance Insurance [facility] MEDICAID STAND ADULT Care Teams Handyperson Relationship Specialty Start Date End Date Name, MD Keyur [address] [place] [id number] PCP - General Family Medicine 01/04/16
== END ==
LOC: HO.NUCMED 07:50
PROVIDERS: PCP Internal Medicine Geriatric Medicine; Visit Provider Nurse Practitioner Family
DX: R10.11 Right upper quadrant pain (principal)
CPT/HCPCS: 78227; A9537; J2805

== ENCOUNTER → 2025-03-18 07:51 | Outpatient (BNV) | payer MEDICAID, SELFPAY | PROVIDERS: PCP Internal Medicine Geriatric Medicine; Visit Provider Radiology Diagnostic Radiology | DX: R10.11 Right upper quadrant pain (principal) | CPT/HCPCS: 78227 ==

== ENCOUNTER 2025-03-25 09:54 | Outpatient (AMB) | payer MEDICAID, SELFPAY ==
[2025-03-25 09:56] VITALS: BP 118/68; PULSE 64; O2SAT 95; BMI 33.6
--- NOTE | 2025-03-25 09:56 | MHC.OFFVIS ---
Vital Signs 03/25/25 09:56 Height 5 ft Weight 172 lb BMI 33.6 BP 118/68 Blood Pressure Location Rt brachial Position Sitting Pulse 64 Pulse Source Pulse Oximeter Pulse Oximetry (%) 95 Oxygen Delivery Method Room Air Intake Visit Reasons: NM follow up , Intake Note: ESTABLISHED PATIENT for chronic abd pain mgmt. FUV s/p NM study (03/18) Chief Complaint; Pt denies any sx currently. Pt comments she still experiences intermittent abd pain but does not have any pain today. Draw Hand Required: Yes Draw Hand Services: Draw Hand Present Draw Hand Name: Noel [email or web address] Information Interpreted: clinical only Accompanied by: Self / Same As Patient Allergies No Known Allergies Allergy (Verified 03/25/25 09:57) HPI HPI NM follow up ,: Details: LAST VISIT RUQ abdominal pain Postprandial abdominal bloating Plan Patient continues with occasional right upper quadrant pain sometimes after meals and sometimes not related to meals. Patient denies any nausea or vomiting. Reports occasional abdominal bloating. Will send patient for HIDA scan. Mild tenderness to RUQ without rebound tenderness. Patient will be seen after HIDA scan. She is agreeable to this plan and verbalizes understanding of instructions. She was given the opportunity to ask questions and all questions answered. ? Thank you for allowing me to participate in her care Orders Orders NM hepatobiliary w pharm Today R10.11 TODAY'S VISIT Patient is here today for follow-up and to discuss HIDA scan results. Patient reports that she has been feeling well for the most part, however she occasionally will have right upper quadrant discomfort. Patient reports that she noticed that not always is related with meals. Patient also reports abdominal bloating and feeling gassy. Patient reports that she is moving her bowels without any issues. Occasional constipation but not often. Patient denies any acid reflux, dyspepsia, dysphagia or odynophagia. Patient denies melena, hematochezia, unintentional weight loss or ribbon like stools. Patient had normal colonoscopy in 2017 [facility] Medical History Arthritis of left knee Patellofemoral syndrome, left Surgical History History of H/O breast biopsy History of hernia surgery Social History Alcohol intake: never Current occupational status: employed Current occupation: right handed Review of Systems Const Denies weight gain and Denies weight loss ENT Reports no additional complaints, Denies dysphagia and Denies odynophagia Card Reports no additional complaints Resp Reports no additional complaints GI Reports abdominal pain (RUQ, occasional), Denies belching, Denies melena, Reports bloating, Denies change in bowel habits, Reports constipation (Occasional), Denies dysphagia, Denies excessive flatus, Denies dyspepsia, Denies heartburn, Denies diarrhea, Denies loose stools, Denies nausea, Denies odynophagia and Denies vomiting Reports no additional complaints Musc Reports no additional complaints Neuro Reports no additional complaints Psych Reports no additional complaints Endo Reports no additional complaints Physical Exam Vital Signs: Last Vital Signs Pulse 64 03/25/25 09:56 BP 118/68 03/25/25 09:56 Pulse Ox 95 03/25/25 09:56 Oxygen Delivery Method Room Air 03/25/25 09:56 BMI result Body Mass Index 33.6 Const General: healthy appearing and no acute distress Nutritional Appearance: obese Orientation/consciousness: patient oriented x3 Resp Effort & Inspection: normal respiratory effort, able to speak in complete sentences, no tracheal deviation and symmetric chest movement Auscultation: clear to auscultation bilaterally Cardio Rate: regular rate GI Inspection: Yes normal to inspection, No distended and Yes obesity Palpation (GI): Soft to palpation, not firm, Tenderness to palpation present (GI) in the RUQ (mild) and No hepatosplenomegaly present Auscultation: normal bowel sounds General: Yes no CVA tenderness Back/Spine/Pelvis Back: no CVA tenderness Skin General skin exam: elasticity normal, turgor normal and dry skin Neuro General: patient oriented x3 Psych Appearance: grossly normal Mental Status: mental status grossly normal Results Reviewed Results Reviewed: HIDA SCAN 03/18/2025 FINDINGS: There is normal uptake and excretion of the radiopharmaceutical by the liver. Gallbladder activity is noted at 14 minutes. Common bile duct activity is seen at 15 minutes. Small bowel activity is noted at 66 minutes. After the administration of intravenous CCK, the estimated gallbladder ejection fraction is 87%, which is within normal limits (normal 35-80%). NM/NM hepatobiliary w pharm IMPRESSION: Normal hepatobiliary scan with normal gallbladder ejection fraction. Assessment & Plan Assessment & Plan (1) RUQ abdominal pain: Code(s): R10.11 - Right upper quadrant pain (2) Postprandial abdominal bloating: Code(s): R14.0 - Abdominal distension (gaseous) Plan Patient was encouraged to avoid dietary triggers. We have discussed avoiding food that could make her gassy. Recommended low FODMAP diet. List of food recommended as well as list of food to avoid given to patient. Increase fluid intake and activity to promote better bowel motility. Patient will return to the office in 3-4 months, sooner on as needed basis. Patient is agreeable to this plan and verbalizes understanding of instructions. She was given the opportunity to ask questions and all questions answered. Thank you for allowing me to participate in her care Coding Level of Care Code Est Pt Level 3 (26445) Diagnoses RUQ abdominal pain R10.11 Postprandial abdominal bloating R14.0 Time Spent (min) 30 Comment 20 minutes spent with patient and additional 10 minutes spent reviewing her records
--- OUTSIDE RECORDS SUMMARY | 2025-03-25 10:17 | XMS_ITS | Clinical Summary ---
Author Organization [employer] Address [address] [place] [address] 7t [place] [address] Care Team Providers Care Pharmacist Manager Name Role Phone Name, Keyur VANG Primary Care Provider [phone] Allergies No known active allergies Medications * [...] for help PLAN: 1. Follow up with [facility]: Not recommended for follow-up 2. Patient goal is to engage in OP therapy service 3. Behavioral Recommendations a. Patient will engage in OP service once established b. Patient may request to speak with a BH during next PCP visit, if needed Acute [...] Encounters Date Type Department Care Team Description 03/18/2025 Orders Only [facility] External Provider, [facility] 03/02/2025 11:30 AM EDT Office Visit [facility] [address] [place] [address] NameKeyur MD Chronic pain of left knee (Primary Dx); Insomnia due to psychological stress 03/02/2025 Travel 03/01/2025 Telephone [facility] [address] [place] [address] Sarah Tenorio MA chart prep 02/23/2025 Refill [facility] [address] [place] [address] NameeKyur MD Chronic low back pain, unspecified back pain laterality, unspecified whether sciatica present 01/28/2025 Population Health Risk Score Community Care [facility] ([facility]) Department [address] [phone] Provider, Population Health Generic from [...] Screening 04/21/2025 04/21/2024 Depression Screening 06/30/2025 06/30/2024, 08/14/20 24 SDOH Screening 06/30/2025 06/30/2024 Tobacco Screening [...] Procedure Name Priority Date/Time Associated Diagnosis Comments NM HEPATOBILIARY W PHARM Routine 03/18/2025 7:51 AM EDT LIPID PANEL, STANDARD Routine 09/17/2024 11:20 AM EDT PE (physical exam), annual BI MAMMOGRAM SCREENING TOMOSYNTHESIS BILATERAL Routine 05/12/2024 12:34 PM EDT Full PROPHYLAXIS - ADULT Routine 10/24/2022 1:00 PM EST HM PAP/HPV Routine 08/12/2019 12:00 AM EDT LORNA HISTORICAL HPV MRNA E6/E7 Routine 08/11/2019 9:34 AM EDT HM COLONOSCOPY Routine 06/10/2017 2:50 PM EDT HM HEPATITIS C ANTIBODY Routine 04/24/2017 HM HIV 1/2 ANTIGEN AND ANTIBODY Routine 04/24/2017 from Last 3 Months or Most Recently Relevant to Health Maintenance Results * NM Hepatobiliary w Pharm (03/18/2025 7:51 AM EDT) Anatomical Region Laterality Modality Body Nuclear Medicine 03/18/2025 7:51 AM EDT Narrative 03/18/2025 10:30 AM EDT ? [facility] ?[address] ?[place] [address] ?Nuclear Medicine Report ? Signed ? Patient: Gerber Cr,Celena ?MR#: ?? [id number] ? : 1965 ?Acct:[id number] ? Age/Sex: 59 / F ?ADM Date: 03/18/25 ? Loc: HO.NUCMED ? Attending Dr: Colleen ESTEVEZ ? Ordering Physician: Colleen Terrell ?? Date of Service: 03/18/25 ?? Procedure(s): NM hepatobiliary w pharm ?? Accession Number(s): [id number] ? cc: Keyur Crawford MD; Colleen Terrell-ANMOL ? EXAMINATION: NM HEPATOBILIARY WITH PHARM ? HISTORY: R10.11 - Right upper quadrant pain. ? TECHNIQUE: An hepatobiliary scan was performed following the ?? intravenous administration of 5 mCi technetium 99m-mebrofenin. ?? Sequential images were obtained over 1 hour. Subsequently, the patient ?? received 1.5 microgram of IV CCK over 30 minutes and additional imaging ?? was performed. ? COMPARISON: Correlation is made with an abdominal ultrasound dated ?? 03/17/2024. ? FINDINGS: ? There is normal uptake and excretion of the radiopharmaceutical by the ?? liver. Gallbladder activity is noted at 14 minutes. Common bile duct ?? activity is seen at 15 minutes. Small bowel activity is noted at 66 ?? minutes. ??After the administration of intravenous CCK, the estimated ?? gallbladder ejection fraction is 87%, which is within normal limits ?? (normal 35-80%). ? NM/NM hepatobiliary w pharm ?? IMPRESSION: ? Normal hepatobiliary scan with normal gallbladder ejection fraction. ? Electronically signed by: ??Matt Bauer MD ??03/18/2025 10:28 AM EDT ? Dictated By: ?Matt Bauer MD ? Signed By: ?<Electronically signed by Matt Bauer MD in OV> ?03/18/25 1028 ? DD/ 0751 ? TD/TT: 03/18/25 1000 ? Parts Department Supervisor: ? Procedure Note Carol Perez - 03/18/2025 [place] [address] Nuclear Medicine Report Signed Patient: Bladimir Kwan#: [id number] : 1965Acct:[id number] Age/Sex: 59 / FADM Date: 03/18/25 Loc: [facility] Attending Dr: Colleen ESTEVEZ Ordering Physician: Colleen Terrell Date of Service: 03/18/25 Procedure(s): NM hepatobiliary w pharm Accession Number(s): [id number] cc: Keyur Crawford MD; Colleen Terrell EXAMINATION: NM HEPATOBILIARY WITH PHARM HISTORY: R10.11 - Right upper quadrant pain. TECHNIQUE: An hepatobiliary scan was performed following the intravenous administration of 5 mCi technetium 99m-mebrofenin. Sequential images were obtained over 1 hour. Subsequently, the patient received 1.5 microgram of IV CCK over 30 minutes and additional imaging was performed. COMPARISON: Correlation is made with an abdominal ultrasound dated 03/17/2024. FINDINGS: There is normal uptake and excretion of the radiopharmaceutical by the liver. Gallbladder activity is noted at 14 minutes. Common bile duct activity is seen at 15 minutes. Small bowel activity is noted at 66 minutes. After the administration of intravenous CCK, the estimated gallbladder ejection fraction is 87%, which is within normal limits (normal 35-80%). NM/NM hepatobiliary w pharm IMPRESSION: Normal hepatobiliary scan with normal gallbladder ejection fraction. Electronically signed by: Matt Bauer MD 03/18/2025 10:28 AM EDT Dictated By: Matt Bauer MD Signed By: <Electronically signed by Matt Bauer MD in OV> 03/18/25 1028 DD/ 0751 TD/TT: 03/18/25 1000 Parts Department Supervisor: [facility] External Provider IMG NM PROCEDURES Final Result * (ABNORMAL) Lipid Panel, Standard (09/17/2024 11:20 AM EDT) Triglycerides 74 <150 mg/dL [facility] Comment:Desirable Triglyceri de: less than 150 mg/dLBorderline High Triglyceride 150-199 mg/dLHigh Triglyceride: 200-499 mg/dLVery High Triglyceride: greater than or equal to 5OO mg/dL Cholesterol 188 <200 mg/dL [facility] Comment:Desirable Cholestero l: less than 200 mg/dLBorderline High Cholesterol: 200-239 mg/dLHigh Cholesterol: greater than 239 mg/dL LDL Cholesterol Calculated 118(H) <100 mg/dL [facility] Comment:Desirable LDL: less than 100 mg/dLNear Optimal/Above Optimal LDL: 110- 129 mg/dLBorderline High LDL: 130-159 mg/dLHigh LDL: 160-189 mg/dLVery High LDL: greater than or equal to 190 mg/dL HDL Cholesterol 56 >40 mg/dL [facility] Comment:Desirable HDL: great er than 40 mg/dL Note: This HDL assay may give artificially low results in patients with liver disease. Blood Venous blood specimen / Unknown 09/17/2024 11:20 AM EDT 09/17/2024 1:28 PM EDT us Keyur Name MD LAB BLOOD ORDERABLES Final Resul t [facility] [address] [place] [address] [phone] * BI Mammogram Screening Tomosynthesis Bilateral (05/12/2024 12:34 PM EDT) Anatomical Region Laterality Modality Breast Bilateral Mammography 05/12/2024 12:3 4 PM EDT Narrative 06/11/2024 8:13 AM EDT ? [facility] [place] ? [address] ?[place] [address] ? Mammography Report ? Signed ? Patient: Mayes Celena Cr ?MR#: ?? [id number] ? : 1965 ?Acct:[id number] ? Age/Sex: 58 / F ?ADM Date: 05/12/24 ? Loc: HO.MAMMO ? Attending Dr: Keyur Name MD ? Ordering Physician: Name,Keyur MD ?Results: 1Negative ? Date of Service: 05/12/24 ?Follow Up: 1 Year From Orig ?? inal Mammogram ? Procedure(s): MM tomosynthesis screening BI ?? Accession Number(s): [id number] ? cc: Name,Keyur VANG ? EXAMINATION: ?? [...] by Janna Mathew MD in OV> ? 06/11/24 0810 ? DD/ 1234 ? TD/TT: ? Parts Department Supervisor: ? Procedure Note Chris, Image - 06/11/2024 [facility] [address] [place] [address] Dr. [place], [place] [address] Mammography Report Signed Patient: Bladimir Kwan#: [id number] : 1965Acct:[id number] Age/Sex: 58 / FADM Date: 05/12/24 Loc: [facility] Attending Dr: Keyur Crawford MD Ordering Physician: Name,Keyur MDResults: 1Negative Date of Service: 05/12/24Follow Up: 1 Year From Orig inal Mammogram Procedure(s): MM tomosynthesis screening BI Accession Number(s): [id number] cc: Keyur Crawford MD EXAMINATION: MM SCREENING [...] in OV> 06/11/24 0810 DD/ 1234 TD/TT: Parts Department Supervisor: Keyur Name IMG BI PROCEDURES Final Result * Hm Pap Smear (08/12/2019 12:00 AM EDT) Historical Provider HEALTH MAINTENANCE Final Result * HPV mRNA E6/E7 (08/11/2019 9:34 AM EDT) HPV mRNA E6/E7 Not Detected NOT DETECTED [facility] Comment: This test was performed using the APTIMA(R) HPV Assay ([employer] This assay detects E6/E7 viral messenger RNA (mRNA) from 14 high-risk HPV types (16,18,31,33,35,39,45,51, 52,56,58,59,66,68). For additional information please refer to: http://education.[employer]/faq/ATZ439r6 (This link is being provided for informational/ educational purposes only.) The analytical performance characteristics of this assay have been determined by [employer] [place], [place]. The modifications have not been cleared or approved by the FDA. This assay has been validated pursuant to the CLIA regulations and is used for clinical purposes. Test Performed by [facility], Prepared Response [facility], [address] [place] [address] Mingo Langford M.D., Ph.D., Director of Laboratories , CLIA [id number] Please note: ??Effective 07/29/2016, HPV testing will be performed using [employer]'s APTIMA test which targets mRNA. Detecting mRNA instead of DNA, as in older methods, offers significant improvements in specificity. 08/11/2019 9:34 AM EDT Milena Murphy CNM HISTORICAL/NON ORDERABLE LABS Final Result [facility] [address] * Colonoscopy (06/10/2017 2:50 PM EDT) Colonoscopy Normal Normal Narrative Annette Yen - 06/10/2017 2:50 PM EDT Recommended 10 year follow up Historical Provider MD HEALTH MAINTENANCE Final Result * HM Hepatitis C Antibody (04/24/2017) Hepatitis C Antibody Nonreactive Blood Sonya Romero DO HEALTH MAINTENANCE Final Res ult * HIV 1/2 Antigen and Antibody (04/24/2017) Pathologist [facility] HIV Ag/Ab Nonreactive Sonya Romero DO HEALTH MAINTENANCE Final Res ult from Last 3 Months or Most Recently Relevant to Health Maintenance Insurance [facility] PARTIAL DENT[facility] MEDICAID STAND ADULT Care Teams Pharmacist Manager Relationship Specialty Start Date End Date Name, MD Keyur [address] [place] [phone] PCP - General Family Medicine 01/04/16
--- OUTSIDE RECORDS SUMMARY | 2025-03-25 10:17 | XMS_ITS | Encounter Summary ---
Author Organization [employer] Address [address] [facility] 7t [place] [address] Care Team Providers Care Pulp Mill Operator Name Role Phone Name, Keyur VANG Primary Care Provider [phone] Encounter Details Date Type Department Care Team (Late st Contact Info) Description 04/21/2023 Abstract [facility] [address] [place], [place] [phone] Name, MD Keyur [address] [place] [address] Social History Tobacco Use Types Packs/Day Years [...] on filedocumented in this encounter Care Teams Pulp Mill Operator Relationship Specialty Start Date End Date Name, MD Keyur [address] [place] [phone] PCP - General Family Medicine 01/04/16 documented as of this encounter
--- OUTSIDE RECORDS SUMMARY | 2025-03-25 10:17 | XMS_ITS | Encounter Summary ---
Author Organization [employer] Address [address] [facility] 7t [place] [address] Care Team Providers Care Congressional Aide Name Role Phone Name, Keyur VANG Primary Care Provider [phone] Encounter Details Date Type Department Care Team (Late st Contact Info) Description 01/13/2023 Orders Only [facility] [address] [place] [address] Sonya Cervantes LPN Social History Tobacco Use [...] Troponin I (04/28/2023 2:07 PM EDT) Pathologist [facility] TROPONIN I HIGH SENSITIVITY <2.7 <3.5 - 17.0 ng/L [facility] Comment:The [place] high sens itivity Troponin-I results should beused in conjunction with other diagnostic information suchas ECG, clinical observations and information, and patientsymptoms to aid in the diagnosis of RI. 04/28/2023 2:07 PM EDT 04/28/2023 2:14 PM EDT [facility] External Provider LAB BLO OD ORDERABLES Final Result [facility] [address] [place] [phone] * Basic Metabolic Panel (04/28/2023 2:07 PM EDT) Pathologist [facility] Sodium 141 135 - 145 mmol/L [facility] Potassium 4.7 3.3 - 5.1 mmol/L [facility] Chloride 107 96 - 108 mmol/L [facility] Carbon Dioxide 25 22 - 29 mmol/L [facility] Anion Gap 14 12 - 20 [facility] Urea Nitrogen (BUN) 13 9 - 16 mg/dL [facility] Creatinine, Serum 0.87 0.5 - 1.4 mg/dL [facility] Creatinine Clr Calc Pharmacy 66.0 [facility] Comment:Provided height and weight: 154.94 cm,74.843 kg.eGFR (calculated from the MDRD study equation) and eCrCl(calculated from the Cockcroft-Gault equation) are based ondifferent parameters and may not yield comparable results.If eCrCl result is absurd, please check patient'sheight/weight. Estimated Glomerular Filt Rate >60 [facility] Comment:NOTE: For -Am erican individuals, multiply the result by 1.210.Chronic Kidney Disease: Estimated GFR < 60 mL/min/[id number] Kidney Disease: Estimated GFR < 15 mL/min/1.73m2 Glucose 105 60 - 115 mg/dL [facility] Calcium 10.0 8.4 - 10.2 mg/dL [facility] 04/28/2023 2:07 PM EDT 04/28/2023 2:14 PM EDT [facility] External Provider LAB BLO OD ORDERABLES Final Result Performing Organization Address [facility] Co de Phone Number [facility] [address] [place] [phone] * Hepatic Function Panel (04/28/2023 2:07 PM EDT) Bilirubin, Total 0.8 0.0 - 1.0 mg/dL [facility] Bilirubin, Direct 0.2 0.0 - 0.5 mg/dL [facility] Aspartate Amino Transferase 16 5 - 31 U/L [facility] Alanine Aminotransferase 16 0 - 31 U/L [facility] Total Protein 7.4 6.5 - 8.0 g/dL [facility] Albumin Level 4.4 3.5 - 5.0 g/dL [facility] Alkaline Phosphatase 112 39 - 117 U/L [facility] 04/28/2023 2:07 PM EDT 04/28/2023 2:14 PM EDT [facility] External Provider LAB BLO OD ORDERABLES Final Result Performing Organization Address [facility] Co de Phone Number [facility] [address] [place] [phone] * Urinalysis with reflex microscopic (04/28/2023 2:07 PM EDT) Color Urine Yellow [facility] Appearance Urine Clear [facility] PH 6.0 5.0 - 9.0 [facility] Glucose Urine UA Negative Negative mg/dL [facility] Urine Blood Negative Negative [facility] Specific [place] - Urine 1.010 1.005 - 1.025 [facility] Urine Protein Negative Neg-Trace mg/dL [facility] Urine Ketones Negative Negative mg/dL [facility] Nitrite Urine Negative Negative [facility] Leukocyte Esterase Urine Negative Negative [facility] 04/28/2023 2:07 PM EDT 04/28/2023 2:14 PM EDT Narrative [facility] - 04/28/2023 2:28 PM EDT 1341Urine, Clean Catch us [facility] External Provider LAB URI NE ORDERABLES Final Result [facility] [address] [place] [address] [phone] * Drug Monitoring, Panel 1, Screen, Urine (04/28/2023 2:07 PM EDT) Pathologist [facility] Opiate Screen Urine Not Detected Not Detect [facility] Comment:Opiate cut-off is 30 0 ng/mL.Positive results are unconfirmed and should not be used fornon-medical purposes. Barbiturates, Urine Not Detected Not Detect [facility] Comment:Barbiturate cut-off is 200 ng/mL.Positive results are unconfirmed and should not be used fornon-medical purposes. Phencyclidine Screen Urine Not Detected Not Detect [facility] Comment:Phencyclidine cut-of f is 25 ng/mL.Positive results are unconfirmed and should not be used fornon-medical purposes. Amphetamine Screen Urine Not Detected Not Detect [facility] Comment:Amphetamine cut-off is 1000 ng/mL.Positive results are unconfirmed and should not be used fornon-medical purposes. Benzodiazepines Screen Urine Not Detected Not Detect [facility] Comment:Benzodiazepine cut-o ff is 200 ng/mL.Positive results are unconfirmed and should not be used fornon-medical purposes. Cocaine Screen Urine Not Detected Not Detect [facility] Comment:Cocaine cut-off is 3 00 ng/mL.Positive results are unconfirmed and should not be used fornon-medical purposes. Cannabinoid Screen Urine Not Detected Not Detect [facility] Comment:Cannabinoid cut-off is 50 ng/mL.Positive results are unconfirmed and should not be used fornon-medical purposes. FENTANYL URINE Not Detected Not Detect [facility] Comment:Fentanyl cut-off is 1 ng/mL.Positive results are unconfirmed and should not be used fornon-medical purposes. 04/28/2023 2:07 PM EDT 04/28/2023 2:14 PM EDT [facility] External Provider LAB URI NE ORDERABLES Final Result [facility] [address] [place] [phone] * (ABNORMAL) CBC auto differential (04/28/2023 2:07 PM EDT) White Blood Count 6.6 4.8 - 10.8 X10*3/uL [facility] Red Blood Count 4.32 4.20 - 5.50 X10*6/uL [facility] Hemoglobin 12.2 12.0 - 16.0 g/dl [facility] Hematocrit 38.9 37.0 - 47.0 % [facility] Mean Corpuscular Volume 90.0 80.0 - 98.0 fL [facility] Mean Corpuscular Hemoglobin 28.2 27.0 - 33.0 pg [facility] Mean Corpuscular HGB Conc 31.4 31.0 - 35.0 g/dl [facility] Red Cell Distribution Width 12.1 11.0 - 16.0 % [facility] Platelet Count 233 160 - 400 X10*3/uL [facility] Mean Platelet Volume 12.1 9.4 - 12.3 fL [facility] Neutrophils Percent Auto 79.2(H) 45 - 73 % [facility] Imm Gran Pct Auto 0.3 0.0 - 0.4 % [facility] Lymphocytes Percent Auto 16.5(L) 20 - 40 % [facility] Monocytes Percent Auto 2.9 2 - 11 % [facility] Eosinophils Percent Auto 0.5 0 - 4 % [facility] Basophils Percent Auto 0.6 0 - 2 % [facility] NRBC Pct Auto 0.0 0.0 - 0.2 /100WBC [facility] Neutrophils Absolute Auto 5.2 2.0 - 8.3 x10*3/uL [facility] Imm Gran Abs Auto 0.02 0.00 - 0.03 X10*3/uL [facility] Lymphocytes Absolute Auto 1.1(L) 1.2 - 4.9 X10*3/uL [facility] Monocytes Absolute Auto 0.2 0.1 - 1.2 X10*3/uL [facility] Eosinophils Absolute Auto 0.0 0.0 - 0.4 X10*3/uL [facility] Basophils Absolute Auto 0.0 0.0 - 0.2 X10*3/uL [facility] NRBC Abs Auto 0.000 0.0 - 0.012 X10*3/uL [facility] 04/28/2023 2:07 PM EDT 04/28/2023 2:14 PM EDT us [facility] External Provider LAB BLO OD ORDERABLES Final Result [facility] [address] [place] [phone] [phone] documented in this encounter Visit Diagnoses Not on filedocumented in this encounter Care Teams Congressional Aide Relationship Specialty Start Date End Date Name, MD Keyur [address] [place] [phone] PCP - General Family Medicine 01/04/16 documented as of this encounter
--- OUTSIDE RECORDS SUMMARY | 2025-03-25 10:17 | XMS_ITS | Encounter Summary ---
Author Organization [employer] Address [address] [place] [address] 7t [place] [address] Care Team Providers Care Instrument Lens Generator Name Role Phone Name, Keyur VANG Primary Care Provider [phone] Encounter Details Date Type Department Care Team (Late st Contact Info) Description 06/24/2023 Abstract [facility] [address] [place], [place] [phone] Asia Granado DDS [address] [place], [place] [phone] Social History Tobacco Use Types Packs/Day Years [...] documented as of this encounter Care Teams Instrument Lens Generator Relationship Specialty Start Date End Date Name, MD Keyur [address] [place] [address] PCP - General Family Medicine 01/04/16 documented as of this encounter
== END 2025-03-25 10:28 | disposition home or self-care (01) ==
LOC: HO.HGI 09:55
PROVIDERS: PCP Internal Medicine Geriatric Medicine; Visit Provider Nurse Practitioner Family
DX: R10.11 Right upper quadrant pain (principal); R14.0 Abdominal distension (gaseous)
CPT/HCPCS: 99213

== ENCOUNTER → 2025-03-25 09:54 | Outpatient (BNVA) | payer MEDICAID, SELFPAY | PROVIDERS: PCP Internal Medicine Geriatric Medicine; Visit Provider Nurse Practitioner Family | DX: R10.11 Right upper quadrant pain (principal); R14.0 Abdominal distension (gaseous) | CPT/HCPCS: 99212 ==

== ENCOUNTER 2025-05-25 10:29 | Outpatient (REF) | payer MEDICAID, SELFPAY ==
--- NOTE | ~2025-05-25 | MM_ITS ---
EXAMINATION: MM SCREENING DIGITAL BREAST TOMOSYNTHESIS, BILATERAL CLINICAL INFORMATION: Screening. Asymptomatic. COMPARISON: Mammography: Comparison is made with available priors TECHNIQUE: Digital breast mammography with tomosynthesis is performed in both the craniocaudal and mediolateral oblique views along with computer-aided detection (CAD). FINDINGS: The breasts are heterogeneously dense, which may obscure small masses (ACR BI-RADS breast composition Category c). There are no significant masses, abnormal calcifications, or other abnormalities. MM/MM tomosynthesis screening BI IMPRESSION: No mammographic evidence of malignancy. ASSESSMENT: BI-RADS BI-RADS 1 - Negative RECOMMENDATION: Routine annual mammography screening. 1 year F/U This examination should not preclude the clinical evaluation of a suspicious palpable abnormality. This patient's information was entered into a reminder system with a target due date for their next mammogram. Electronically signed by: Savanah Vivas DO 06/07/2025 09:45 AM EDT
--- OUTSIDE RECORDS SUMMARY | 2025-05-25 11:22 | XMS_ITS | Clinical Summary ---
Author Organization [employer] Address [address] [facility] [address] [place] [address] Care Team Providers Care Thermal Technician Name Role Phone Name, Keyur VANG Primary Care Provider [phone] Allergies No known active allergies Medications * [...] MORNING 48 g 2 09/28/20 24 Active melatonin 10 MG tablet Take 1 tablet (10 mg) by mouth Once per day. 30 tablet 11 03/02/20 25 2025 Active diclofenac (Voltaren) 75 MG EC tabletIndicatio ns:Chronic low back pain, unspecified back pain laterality, unspecified whether sciatica present TAKE 1 TABLET BY MOUTH TWICE DAILY IN THE MORNING AND AT BEDTIME NEEDED FOR PAIN. DO NOT BREAK, CRUSH, DISSOLVE OR CHEW. 60 tablet 05/10/20 25 Active Diclofenac Sodium 1 % gel APPLY 2 GRAMS TOPICALLY TO AFFECTED AREA(S) OF WRIST RIGHT THREE TIMES DAILY NEEDED FOR PAIN 100 g 05/10/20 25 Active lidocaine (Lidoderm) 5 % patch APPLY 1 PATCH TOPICALLY TO SKIN, LEAVE ON FOR 12 HOURS AND OFF FOR 12 HOURS DIRECTED 30 patch 05/10/20 25 Active Diclofenac Sodium 1 % gel APPLY 2 GRAMS TOPICALLY TO AFFECTED AREA(S) OF WRIST derecho THREE TIMES DAILY NEEDED FOR PAIN 100 g 04/12/20 25 2024 Discontinued lidocaine (Lidoderm) 5 % patch APPLY 1 PATCH TOPICALLY TO SKIN, LEAVE ON FOR 12 HOURS AND OFF FOR 12 HOURS DIRECTED 30 patch 04/12/20 25 2024 Discontinued diclofenac (Voltaren) 75 MG EC tabletIndicatio ns:Chronic low back pain, unspecified back pain laterality, unspecified whether sciatica present Do not crush, chew, or split.TAKE 1 TABLET TWICE DAILY IN THE MORNING AND AT BEDTIME NEEDED FOR PAIN DO NOT BREAK, CRUSH, DISSOLVE OR CHEW 60 tablet 04/12/20 25 2024 Discontinued Active Problems Problem Noted Date [...] Patient may request to speak with a C during next PCP visit, if needed Acute [...] any specific virus Last week. Take Acetaminophen (Tylenol )or Ibuprofen as needed to reduce fever or discomfort Gargle with salt water and use throat sprays/lozenges for throat pain. Use heated, humidified air. If you do not have a humidifier, take hot showers. Impaired fasting glucose 12/08/2012 Encounters Date Type Department Care Team Description 05/09/[address] [facility] [address] [place] [address] Keyur Crawford MD Chronic low back pain, unspecified back pain laterality, unspecified whether sciatica present 04/22/[address] [facility] [address] [place] [address] Keyur Crawford MD 04/22/2025 Telephone [facility] [address] [place] [address] [phone] Sarah Tenorio MA august recalls 04/12/[address] [facility] [address] [place] [address] Keyur Crawford MD Chronic low back pain, unspecified back pain laterality, unspecified whether sciatica present 03/18/2025 Orders Only [facility] External Provider, [facility] 03/02/2025 11:30 AM EDT Office Visit [facility] [address] [place] [address] Keyur Crawford MD Chronic pain of left knee (Primary Dx); Insomnia due to psychological stress 03/02/2025 Travel 03/01/2025 Telephone [facility] [address] [place] [address] Sarah Tenorio MA chart prep 02/23/2025 Refill [facility] [address] [place] [address] Name, MD Keyur Chronic low back pain, unspecified back pain laterality, unspecified whether sciatica present from Last 3 Months Immunizations Immunization Administration Dates Next Due Hep B, adult [...] your housing situation today? I have sly sing 06/30/[address] you li [...] 94 03/02/2025 11:45 AM EDT Temperature 35.6 C (96 F) 03/02/2025 11:45 AM EDT Respiratory Rate 16 03/02/2025 11:45 AM EDT Oxygen Saturation 97% 03/02/2025 11:45 AM EDT Inhaled Oxygen Concentration - - Weight 72.6 kg (160 lb) 03/02/2025 11:45 AM EDT Height 152.4 cm (5') 03/02/2025 11:45 AM EDT Body Mass Index 31.25 03/02/2025 11:45 AM EDT Plan of Treatment Upcoming Encounters Date Type Department Care Team (Late st Contact Info) Description 07/26/2025 11:30 AM EDT Office Visit [facility] [address] [place] [address] Name, MD Keyur [address] [place] [address] Health Maintenance Due Date Last Done Comments CT Colonography 1965 Dental Oral Exam 1965 Dental X-Ray: Bitewings 1965 Dental X-Ray: Full Mouth 1965 FIT DNA/Cologuard 1965 FIT 1965 FOBT 1965 Sigmoidoscopy 1965 Disability Screening 1965 Alcohol/Substance Use Screening 1977 Pneumococcal Vaccine: 50+ Years (1 of 1 - PCV) 2015 Dental Prophylaxis 04/25/2023 10/24/2022 COVID-19 Vaccine ( season) 2024 11/27/2021, 04/03/2021, 03/09/2021 HPV/Cotest 08/12/2024 08/11/2019 Pap Smear 08/12/2024 08/12/2019 Hepatitis B Vaccines (2 of 3 - 19+ 3-dose series) 10/18/2024 09/20/2024 Depression Screening 06/30/2025 06/30/2024, 06/30/20 24 SDOH Screening 06/30/2025 06/30/2024 Influenza Vaccine (#1) 2025 , 08/07/2020, 09/19/2014, Additional history exists Tobacco Screening 03/02/2026 03/02/2025 Mammogram 05/12/2026 05/12/2024, [...] patient's age to complete this topic Meningococcal B Vaccine Aged Out No l onger eligible based on patient's age to complete [...] AM EDT Narrative 03/18/2025 10:30 AM EDT [address] [address] Nuclear Medicine Report Signed Patient: Celena Kwan MR#: [id number] : 1965 Acct:[id number] Age/Sex: 59 / F ADM Date: 03/18/25 Loc: [facility] Attending Dr: Colleen ESTEVEZ Ordering Physician: Colleen Terrell Date of Service: 03/18/25 Procedure(s): NM hepatobiliary w pharm Accession Number(s): [id number] cc: Name,Keyur VANG; Colleen Terrell EXAMINATION: NM HEPATOBILIARY WITH PHARM [...] 03/18/25 1028 DD/ 0751 TD/TT: 03/18/25 1000 State Pilot: Procedure Note Donotuseinterpreter, Image - 03/18/2025 [place] [address] Nuclear Medicine Report Signed Patient: Mayes CrBladimir matthew#: [id number] : 1965Acct:[id number] Age/Sex: 59 / FADM Date: 03/18/25 Loc: [facility] Attending Dr: Colleen Terrell [facility] Ordering Physician: Colleen Terrell [facility] Date of Service: 03/18/25 Procedure(s): NM hepatobiliary w pharm Accession Number(s): [id number] cc: Name,Keyur VANG; Colleen Terrell [facility] EXAMINATION: NM HEPATOBILIARY WITH PHARM HISTORY: R10.11 [...] 03/18/25 1028 DD/ 0751 TD/TT: 03/18/25 1000 State Pilot: [facility] External Provider IMG NM PROCEDURES Final Result * (ABNORMAL) Lipid Panel, Standard (09/17/2024 11:20 AM EDT) Triglycerides 74 <150 mg/dL [facility] Comment:Desirable Triglyceri de: less than 150 mg/dLBorderline High Triglyceride 150-199 mg/dLHigh Triglyceride: 200-499 mg/dLVery High Triglyceride: greater than or equal to 5OO mg/dL Cholesterol 188 <200 mg/dL [facility] Comment:Desirable Cholestero l: less than 200 mg/dLBorderline High Cholesterol: 200-239 mg/dLHigh Cholesterol: greater than 239 mg/dL LDL Cholesterol Calculated 118(H) <100 mg/dL [facility] Comment:Desirable LDL: less than 100 mg/dLNear Optimal/Above Optimal LDL: 110- 129 mg/dLBorderline High LDL: 130-159 mg/dLHigh LDL: 160-189 mg/dLVery High LDL: greater than or equal to 190 mg/dL HDL Cholesterol 56 >40 mg/dL [facility] Comment:Desirable HDL: great er than 40 mg/dL Note: This HDL assay may give artificially low results in patients with liver disease. Blood Venous blood specimen / Unknown 09/17/2024 11:20 AM EDT 09/17/2024 1:28 PM EDT Keyur Crawford MD LAB BLOOD ORDERABLES Final Resul t [facility] [address] [place] [phone] * BI Mammogram Screening Tomosynthesis Bilateral (05/12/2024 12:34 PM EDT) Anatomical Region Laterality Modality Breast Bilateral Mammography 05/12/2024 12:3 4 PM EDT Narrative 06/11/2024 8:13 AM EDT [facility] [address] [place] [address] Mammography Report Signed Patient: Celena Kwan MR#: [id number] : 1965 Acct:[id number] Age/Sex: 58 / F ADM Date: 05/12/24 Loc: HO.MAMMO Attending Dr: Keyur Crawford MD Ordering Physician: Keyur Crawford MD Results: 1Negative Date of Service: 05/12/24 Follow Up: 1 Year From Orig inal Mammogram Procedure(s): MM tomosynthesis screening BI Accession Number(s): [id number] cc: Keyur Crawford MD EXAMINATION: MM SCREENING [...] in OV> 06/11/24 0810 DD/ 1234 TD/TT: State Pilot: Procedure Note Donotuseinterpreter, Image - 06/11/2024 [facility] [address] [place] [address] Mammography Report Signed Patient: Fabiana KwansMR#: [id number] : 1965Acct:[id number] Age/Sex: 58 / FADM Date: 05/12/24 Loc: FAT[facility] Attending Dr: Keyur Crawford MD Ordering Physician: Keyur Crawfordesults: 1Negative Date of Service: 05/12/24Follow Up: 1 Year From Orig inal Mammogram Procedure(s): MM tomosynthesis screening BI Accession Number(s): [id number] cc: Keyur Crawford MD EXAMINATION: MM SCREENING [...] in OV> 06/11/24 0810 DD/ 1234 TD/TT: State Pilot: Keyur Name IMG BI PROCEDURES Final Result * Hm Pap Smear (08/12/2019 12:00 AM EDT) Historical Provider HEALTH MAINTENANCE Final Result * HPV mRNA E6/E7 (08/11/2019 9:34 AM EDT) HPV mRNA E6/E7 Not Detected NOT DETECTED [facility] Comment: This test was performed using the APTIMA(R) HPV Assay ([employer] This assay detects E6/E7 viral messenger RNA (mRNA) from 14 high-risk HPV types (16,18,31,33,35,39,45,51, 52,56,58,59,66,68). For additional information please refer to: http://education.[employer].Smashrun/faq/JVW587o2 (This link is being provided for informational/ educational purposes only.) The analytical performance characteristics of this assay have been determined by [employer] [place], [place]. The modifications have not been cleared or approved by the FDA. This assay has been validated pursuant to the CLIA regulations and is used for clinical purposes. Test Performed by [facility], [address] [place] [address] Mingo Langford M.D., Ph.D., Director of Laboratories , CLIA [id number] Please note: Effective 07/29/2016, HPV testing will be performed using [employer] APTIMA test which targets mRNA. Detecting mRNA instead of DNA, as in older methods, offers significant improvements in specificity. 08/11/2019 9:34 AM EDT Milena Murphy CNM HISTORICAL/NON ORDERABLE LABS Final Result [facility] [address] * Colonoscopy (06/10/2017 2:50 PM EDT) [...] Most Recently Relevant to Health Maintenance Insurance [facility] C3 [facility] C3 [facility] MEDICAID STAND ADULT Care Teams Thermal Technician Relationship Specialty Start Date End Date Name, MD Keyur [address] [place] [id number] PCP - General Family Medicine 01/04/16
== END 2025-05-25 10:30 | disposition home or self-care (01) ==
LOC: HO.MAMMO 10:29
PROVIDERS: PCP Internal Medicine Geriatric Medicine; Visit Provider Internal Medicine Geriatric Medicine
DX: Z12.31 Encounter for screening mammogram for malignant neoplasm of breast (principal)
CPT/HCPCS: 77063; 77067

== ENCOUNTER → 2025-05-25 10:30 | Outpatient (BNV) | payer MEDICAID, SELFPAY | PROVIDERS: PCP Internal Medicine Geriatric Medicine; Visit Provider Internal Medicine | DX: Z12.31 Encounter for screening mammogram for malignant neoplasm of breast (principal) | CPT/HCPCS: 77063; 77067 ==

== ENCOUNTER 2025-07-08 11:09 | Outpatient (REF) | payer MEDICAID, SELFPAY ==
--- OUTSIDE RECORDS SUMMARY | 2025-07-08 11:14 | XMS_ITS | Clinical Summary ---
Author Organization [facility] Address [address] [place] [phone] Phone Care Team Providers Care Planning Analyst Name Role Phone Name, Keyur VANG Primary Care Provider [phone] Allergies No known active allergies Medications No known medications Social History Tobacco Use Types Packs/Day Years Used Date Smoking Tobacco: Never Assessed Education Answer Date Recorded Are you interested in more education? Not on anastacio e 04/15/2024 Are you concerned about learning? Not on file 04/15/2024 No 04/15/2024 No 04/15/2024 Digital Access Answer Date Recorded No 04/15/2024 No 04/15/2024 Reliable internet access at home? Not on file 04/15/2024 Device with a working camera? Not on file Intimate Partner Violence Answer Date R ecorded Are you denied basic needs s uch as food, clothing, or medical care? No 04/15/2024 In the past 12 months have y ou been in a relationship with a person who hurts, threatens, or tries to control you? No 04/15/2024 Are you denied basic needs s uch as food, clothing, or medical care? No 04/15/2024 In the past 12 months have y ou been in a relationship with a person who hurts, threatens, or tries to control you? No 04/15/2024 Comments Unknown Sex and Gender Information Value Date Recorded Sex Assigned at Female 04/15/2024 3:08 PM EDT Legal Sex Female 2:23 PM EDT Gender Identity Female 04/15/2024 3:08 PM EDT Sexual Orientation Don't know 04/15/2024 3: 54 PM EDT Last Filed Vital Signs Vital Sign Reading Time Taken Comments Blood Pressure 166/92 04/15/2024 10:21 PM EDT Pulse 60 04/15/2024 10:21 PM EDT Temperature 36.1 C (97 F) 04/15/2024 10:21 PM EDT Respiratory Rate 18 04/15/2024 10:21 PM EDT Oxygen Saturation 97% 04/15/2024 10:21 PM EDT Inhaled Oxygen Concentration - - Weight 72.6 kg (160 lb) 04/15/2024 3:07 PM EDT Height 152.4 cm (5') 04/15/2024 3:07 PM EDT Body Mass Index 31.25 04/15/2024 3:07 PM EDT Plan of Treatment Health Maintenance Due Date Last Done Comments Adult Td,Tdap Booster 1965 LIPID PANEL 1965 DEPRESSION SCREENING 1977 SMOKING Hx and SMOKELESS TOB ACCO SCREENING 1978 HEPATITIS C SCREENING 1983 HIV ONE-TIME SCREENING (18-6 5 YEARS) 1983 PAP SMEAR 1986 MAMMOGRAM 2005 COLOGUARD 2010 COLONOSCOPY 2010 COLORECTAL CANCER SCREENING 2010 FIT TEST 2010 FOBT 2010 SIGMOIDOSCOPY 2010 VIRTUAL COLONOSCOPY 2010 PNEUMOCOCCAL VACCINES (50+ y ears) (1 of 1 - PCV) 2015 ZOSTER VACCINES (1 of 2) 2015 COVID-19 VACCINE (1 - 2023-2 5 season) 2024 SCREENING FOR DIABETES 04/15/2027 04/15/2024 HEPATITIS A VACCINES Aged Out No long er eligible based on patient's age to complete this topic HIB VACCINES Aged Out No longer eligi ble based on patient's age to complete this topic MENINGOCOCCAL VACCINES (ACWY) Aged Out No longer eligible based on patient's age to complete this topic MENINGOCOCCAL VACCINES (B) Aged Out N o longer eligible based on patient's age to complete this topic Medical Devices Not on file Insurance [employer] [place] [address] [place] [address] [place] [address] [place] [address] [employer] [place] [address] [place] [address] [employer] Care Teams Planning Analyst Relationship Specialty Start Date End Date Name, MD Keyur [address] [place] [phone] PCP - General Internal Medicine 04/15/24 Additional Source Comments The information contained in this document represents components of the legal health record. It is not the complete legal health record.[facility]
--- OUTSIDE RECORDS SUMMARY | 2025-07-08 11:14 | XMS_ITS | Clinical Summary ---
Author Organization [employer] Address [address] [facility] [address] [place] [address] Care Team Providers Care Hot Car Charger Name Role Phone Name, Keyur VANG Primary Care Provider [phone] Allergies No known active allergies Medications * This document contains information received from the source organization and may not represent a complete record from that organization. Acetaminophen 500 MG capsuleIndicati ons:Back pain, unspecified back location, unspecified back pain laterality, unspecified chronicity Take 2 capsules (1,000 mg) by mouth every 6 (six) hours if needed for mild pain. 30 capsule 1 022 Active Blood Pressure Monitor kitIndications: Elevated BP without diagnosis of hypertension Use to check blood pressure once daily and when symptomatic 1 kit 023 Active Blood Pressure Monitor kit Check blood pressure twice a wee. Dx hypertension 1 kit 023 Active buPROPion XL (Wellbutrin XL) 150 MG 24 hr tablet TAKE 1 TABLET BY MOUTH DAILY IN THE MORNING 90 tablet 024 Active neomycin-bacitr acin-polymyxin (Neosporin) 5-400-5000 ointment Apply topically if needed in the morning and at bedtime for irritation. 15 g 024 Active diphenhydrAMINE (BENADryl) 25 MG tablet Take 2 tablets (50 mg) by mouth every 8 (eight) hours if needed for itching for up to 10 doses. 20 tablet 024 Active fluticasone (Flonase) 50 MCG/ACT nasal spray SPRAY 2 SPRAYS INTO EACH NOSTRIL EVERY MORNING 48 g 2 024 Active melatonin 10 MG tablet Take 1 tablet (10 mg) by mouth Once per day. 30 tablet 11 025 2025 Active Elastic Bandages & Supports (TruForm Stockings 20-30mmHg) [facility] Use bilateral stocking daily 2 each Active lidocaine (Lidoderm) 5 % patch APPLY 1 PATCH TOPICALLY TO SKIN, LEAVE ON FOR 12 HOURS AND OFF FOR 12 HOURS DIRECTED 30 patch 1 Active diclofenac (Voltaren) 75 MG EC tablet TAKE 1 TABLET BY MOUTH TWICE DAILY IN THE MORNING AND AT BEDTIME NEEDED FOR PAIN. DO NOT BREAK, CRUSH, DISSOLVE OR CHEW. 60 tablet 1 Active Diclofenac Sodium 1 % gel APPLY 2 GRAMS TOPICALLY TO AFFECTED AREA(S) OF WRIST RIGHT THREE TIMES DAILY NEEDED FOR PAIN 100 g 1 Active diclofenac (Voltaren) 75 MG EC tabletIndicatio ns:Chronic low back pain, unspecified back pain laterality, unspecified whether sciatica present TAKE 1 TABLET BY MOUTH TWICE DAILY IN THE MORNING AND AT BEDTIME NEEDED FOR PAIN. DO NOT BREAK, CRUSH, DISSOLVE OR CHEW. 60 tablet 025 2024 Discontinued(R eorder (will not trigger notification to Pharmacy)) Diclofenac Sodium 1 % gel APPLY 2 GRAMS TOPICALLY TO AFFECTED AREA(S) OF WRIST RIGHT THREE TIMES DAILY NEEDED FOR PAIN 100 g 025 2024 Discontinued(R eorder (will not trigger notification to Pharmacy)) lidocaine (Lidoderm) 5 % patch APPLY 1 PATCH TOPICALLY TO SKIN, LEAVE ON FOR 12 HOURS AND OFF FOR 12 HOURS DIRECTED 30 patch 025 2024 Discontinued(R eorder (will not trigger notification to Pharmacy)) Active Problems Problem Noted Date Diagnosed Date [...] for help PLAN: 1. Follow up with [facility]: Not recommended for follow-up 2. Patient goal [...] threee days. Moderate generalized gingival recession 10/24/20 Gingival bleeding 10/24/2022 Chronic low back pain [...] Encounters Date Type Department Care Team Description 07/08/2025 10:30 AM EDT Office Visit [facility] [address] [place] [phone] Keyur Crawford MD PE (physical exam), routine (Primary Dx); Screening for diabetes mellitus; Screening for cholesterol level; Chronic pain of left knee 07/08/2025 Refill [facility] [address] [place] [address] Keyur Crawford MD Chronic low back pain, unspecified back pain laterality, unspecified whether sciatica present 07/08/2025 Travel 07/07/2025 Telephone [facility] [address] [place] [address] Sarah Tenorio MA chart prep 06/22/2025 7:00 PM EDT Office Visit [facility] [address] [place], [place] [phone] Pete Kendall MD Localized swelling of lower extremity (Primary Dx) 06/22/2025 Travel 05/25/2025 Orders Only [facility] [address] [place] [address] Name, MD Keyur 05/09/2025 Refill [facility] [address] [place] [address] NameKeyur MD Chronic low back pain, unspecified back pain laterality, unspecified whether sciatica present 04/22/2025 Refill [facility] [address] [place] [address] NameKeyur MD 04/22/2025 Telephone [facility] [address] [place] [address] Sarah Tenorio MA june recalls 04/12/2025 Refill [facility] [address] [place], [place] [phone] NameKeyur MD Chronic low back pain, unspecified [...] Date Recorded Patient Health Questionnaire-9 Score 0 07/08/2025 Patient Health Questionnaire-9 Score 0 07/08/2025 Last PHQ-9: Questionnaire Data Not on file 0 07/08/2025 Housing Stability Answer Date Recorded What is your housing situation today? I have sly huntley 07/08/[address] you li ve. Do you have problems with any of the following? None of the above 07/08/2025 Food Insecurity Answer Date Recorded Within the past 12 months, y ou worried that your food would run out before you got money to buy more: Never True 07/08/2025 Within the past 12 months,th e food you bought just didn't last and you didn't have enough money to get more: Never True Transportation Answer Date Recorded In the past 12 months, has l ack of transportation kept you from medical appts, meetings, work or from getting things needed for daily living? No 07/08/2025 Utilities Answer Date Recorded In the past 12 months, has t he electric, gas, oil or water company threatened to shut off services in your home? No 07/08/2025 Depression Answer Date Recorded Patient Health Questionnaire-2 Score 0 07/08/2025 Internet Access Answer Date Recorded Internet Access Q1 Yes 07/08/2025 Internet Access Q2 Not on file 07/08/2025 Comments Unknown Sex and Gender Information Value Date Recorded Sex Assigned at Female 09/16/2022 10:21 AM EDT Legal Sex Female 10:21 AM EDT Gender Identity Female 09/16/2022 10:21 AM EDT Sexual Orientation Straight 09/16/2022 10 :21 AM EDT Last Filed Vital Signs Vital Sign Reading Time Taken Comments Blood Pressure 122/82 07/08/2025 10:44 AM EDT Pulse 75 07/08/2025 10:44 AM EDT Temperature 36.2 C (97.2 F) 07/08/2025 10:44 AM EDT Respiratory Rate 18 07/08/2025 10:44 AM EDT Oxygen Saturation 97% 07/08/2025 10:44 AM EDT Inhaled Oxygen Concentration - - Weight 77.6 kg (171 lb) 07/08/2025 10:44 AM EDT Height 152.4 cm (5') 07/08/2025 10:44 AM EDT Body Mass Index 33.4 07/08/2025 10:44 AM EDT Plan of Treatment Health Maintenance Due Date Last Done Comments CT Colonography 1965 Dental Oral Exam 1965 Dental X-Ray: Bitewings 1965 Dental X-Ray: Full Mouth 1965 FIT DNA/Cologuard 1965 FIT 1965 FOBT 1965 Sigmoidoscopy 1965 Pneumococcal Vaccine: 50+ Years (1 of 1 - PCV) 2015 Dental Prophylaxis 04/25/2023 10/24/2022 COVID-19 Vaccine ( - season) 2024 11/27/2021, 04/03/2021, 03/09/2021 HPV/Cotest 08/12/2024 08/11/2019 Pap Smear 08/12/2024 08/12/2019 Hepatitis B Vaccines (2 of 3 - 19+ 3-dose series) 10/18/2024 09/20/2024 Influenza Vaccine (#1) 2025 , 08/07/2020, 09/19/2014, Additional history exists Alcohol/Substance Use Screening 07/08/2026 07/08/2025 Depression Screening 07/08/2026 07/08/2025, 07/08/20 25 Disability Screening 07/08/2026 07/08/2025 SDOH Screening 07/08/2026 07/08/2025 Tobacco Screening 07/08/2026 07/08/2025 Mammogram 05/25/2027 05/25/2025, 04/18, 05/09/2023, Additional history exists Colonoscopy 06/10/2027 [...] Procedure Name Priority Date/Time Associated Diagnosis Comments BI MAMMOGRAM SCREENING TOMOSYNTHESIS BILATERAL Routine 05/25/2025 10:40 AM EDT LIPID PANEL, STANDARD Routine 09/17/2024 11:20 AM EDT PE (physical exam), annual Full PROPHYLAXIS - ADULT Routine 10/24/2022 1:00 PM EST HM PAP/HPV Routine 08/12/2019 12:00 AM EDT ZZZ HISTORICAL HPV MRNA E6/E7 Routine 08/11/2019 9:34 AM EDT HM COLONOSCOPY Routine 06/10/2017 2:50 PM EDT HM HEPATITIS C ANTIBODY Routine 04/24/2017 HM HIV 1/2 ANTIGEN AND ANTIBODY Routine 04/24/2017 from Last 3 Months or Most Recently Relevant to Health Maintenance Results * BI Mammogram Screening Tomosynthesis Bilateral (05/25/2025 10:40 AM EDT) Anatomical Region Laterality Modality Breast Bilateral Mammography 05/25/2025 10:4 0 AM EDT Narrative 06/07/2025 9:48 AM EDT [place] [place] [address] Mammography Report Signed Patient: Celena Kwan MR#: [id number] : 1965 Acct:[id number] Age/Sex: 59 / F ADM Date: 05/25/25 Loc: HO.MAMMO Attending Dr: Keyur Crawford MD Ordering Physician: Keyur Crawford MD Results: 1Negative Date of Service: 05/25/25 Follow Up: 1 Year From Orig inal Mammogram Procedure(s): MM tomosynthesis screening BI Accession Number(s): [id number] cc: NameKeyur MD EXAMINATION: MM SCREENING DIGITAL BREAST TOMOSYNTHESIS, BILATERAL CLINICAL INFORMATION: Screening. Asymptomatic. COMPARISON: Mammography: Comparison is made with available priors TECHNIQUE: Digital breast mammography with tomosynthesis is performed in both the craniocaudal and mediolateral oblique views along with computer-aided detection (CAD). FINDINGS: The breasts are heterogeneously dense, which [...] target due date for their next mammogram. Electronically signed by: Savanah Vivas DO 06/07/2025 09:45 AM EDT Dictated By: Savanah Vivas DO Signed By: <Electronically signed by Savanah Vivas DO in OV> 06/07/25 0945 DD/ 1040 TD/TT: 05/25/25 1100 Agronomy Professor: Procedure Note Donotuseinterpreter, Image - 06/07/[address] [place] [address] Mammography Report Signed Patient: Matthew KwanR#: [id number] : 1965Acct:[id number] Age/Sex: 59 / FADM Date: 05/25/25 Loc: HO.MAMMO Attending Dr: Keyur Crawford MD Ordering Physician: Keyur Crawfordults: 1Negative Date of Service: 05/25/25Follow Up: 1 Year From Orig ina Mammogram Procedure(s): MM tomosynthesis screening BI Accession Number(s): [id number] cc: Name,Keyur VANG EXAMINATION: MM SCREENING DIGITAL BREAST TOMOSYNTHESIS, BILATERAL CLINICAL INFORMATION: Screening. Asymptomatic. COMPARISON: Mammography: Comparison is made with available priors TECHNIQUE: Digital breast mammography with tomosynthesis is performed in both the craniocaudal and mediolateral oblique views along with computer-aided detection (CAD). FINDINGS: The breasts are heterogeneously dense, which [...] target due date for their next mammogram. Electronically signed by: Savanah Vivas DO 06/07/2025 09:45 AM EDT Dictated By: Savanah Vivas DO Signed By: <Electronically signed by Savanah Vivas DO in OV> 06/07/25 0945 DD/ 1040 TD/TT: 05/25/25 1100 Agronomy Professor: Keyur Crawford MD IM BI PROCEDURES Final Result * (ABNORMAL) Lipid Panel, Standard (09/17/2024 11:20 AM EDT) Triglycerides 74 <150 mg/dL [facility] Comment:Desirable Triglyceri de: less than 150 mg/dLBorderline High Triglyceride 150-199 mg/dLHigh Triglyceride: 200-499 mg/dLVery High Triglyceride: greater than or equal to 5OO mg/dL Cholesterol 188 <200 mg/dL [facility] Comment:Desirable Cholestero l: less than 200 mg/dLBorderline High Cholesterol: 200-239 mg/dLHigh Cholesterol: greater than 239 mg/dL LDL Cholesterol Calculated 118(H) <100 mg/dL [facility] Comment:Desirable LDL: less than 100 mg/dLNear Optimal/Above Optimal LDL: 110- 129 mg/dLBorderline High LDL: 130-159 mg/dLHigh LDL: 160-189 mg/dLVery High LDL: greater than or equal to 190 mg/dL HDL Cholesterol 56 >40 mg/dL [facility] Comment:Desirable HDL: great er than 40 mg/dL Note: This HDL assay may give artificially low results in patients with liver disease. Blood Venous blood specimen / Unknown 09/17/2024 11:20 AM EDT 09/17/2024 1:28 PM EDT Keyur Name LAB BLOOD ORDERABLES Final Resul t [facility] [address] [place] [phone] * Hm Pap Smear (08/12/2019 12:00 AM EDT) Historical Provider HEALTH MAINTENANCE Final Result * HPV mRNA E6/E7 (08/11/2019 9:34 AM EDT) HPV mRNA E6/E7 Not Detected NOT DETECTED [facility] Comment: This test was performed using the APTIMA(R) HPV Assay ([employer] This assay detects E6/E7 viral messenger RNA (mRNA) from 14 high-risk HPV types (16,18,31,33,35,39,45,51, 52,56,58,59,66,68). For additional information please refer to: http://education.[employer]/faq/IZB333v2 (This link is being provided for informational/ educational purposes only.) The analytical performance characteristics of this assay have been determined by [employer] [place], [place]. The modifications have not been cleared or approved by the FDA. This assay has been validated pursuant to the CLIA regulations and is used for clinical purposes. Test Performed by [facility], [facility], [address] [place] [id number] iMngo Langford M.D., Ph.D., Director of Laboratories , CLIA [id number] Please note: Effective 07/29/2016, HPV testing will be performed using [employer]'s APTIMA test which targets mRNA. Detecting mRNA instead of DNA, as in older methods, offers significant improvements in specificity. 08/11/2019 9:34 AM EDT Milena Murphy CNM HISTORICAL/NON ORDERABLE LABS Final Result [facility] [address] * Colonoscopy (06/10/2017 2:50 PM EDT) [...] Most Recently Relevant to Health Maintenance Insurance [facility] C[facility] C[facility] MEDICAID STAND ADULT Care Teams Hot Car Charger Relationship Specialty Start Date End Date Name, MD Keyur [address] [place] [id number] PCP - General Family Medicine 01/04/16
[2025-07-08 12:36] LABS: Alanine Aminotransferase 19 U/L (0-31); Albumin Level 4.7 g/dL (3.5-5.0); Alkaline Phosphatase 112 U/L (39-117); Anion Gap 12 (12-20); Aspartate Amino Transferase 21 U/L (5-31); Blood Urea Nitrogen 13 mg/dL (9-16); Calcium 9.9 mg/dL (8.4-10.2); Carbon Dioxide 28 mmol/L (22-29); Chloride 107 mmol/L (96-108); Cholesterol 197 mg/dL (<200); Estimated Glomerular Filt Rate > 60; HDL Cholesterol 52 mg/dL (>40); Potassium 4.5 mmol/L (3.3-5.1); Sodium 142 mmol/L (135-145); Total Protein 7.6 g/dL (6.5-8.0); Triglycerides 107 mg/dL (<150)
== END 2025-07-08 11:10 | disposition home or self-care (01) ==
LOC: HO.HHCL 11:09
PROVIDERS: PCP Internal Medicine Geriatric Medicine; Visit Provider Internal Medicine Geriatric Medicine
DX: Z00.00 Encounter for general adult medical examination without abnormal findings (principal)
CPT/HCPCS: 36415; 80053; 80061

== ENCOUNTER 2025-10-10 15:55 | Outpatient (AMB) | payer MEDICAID, SELFPAY ==
--- NOTE | 2025-10-10 15:58 | MHC.OFFVIS ---
Vital Signs 10/10/25 15:59 Height 5 ft Weight 155 lb BMI 30.3 BP 136/78 Blood Pressure Location Rt brachial Position Sitting Pulse 74 Pulse Source Pulse Oximeter Pulse Oximetry (%) 93 Oxygen Delivery Method Room Air Intake Visit Reasons: Chronic abd pain. R/S from August. Intake Note: ESTABLISHED PATIENT for chronic abd pain mgmt. Chief Complaint; C/O nausea, vomiting, and epigastric pain exacerbation. Medical Service Technician Required: Yes Medical Service Technician Services: Medical Service Technician Present Medical Service Technician Name: Marv (Provider only) Information Interpreted: clinical only Accompanied by: Self / Same As Patient Allergies No Known Allergies Allergy (Verified 10/10/25 17:03) HPI HPI Chronic abd pain. R/S from August.: Details: LAST VISIT: RUQ abdominal pain Postprandial abdominal bloating Plan Patient was encouraged to avoid dietary triggers. We have discussed avoiding food that could make her gassy. Recommended low FODMAP diet. List of food recommended as well as list of food to avoid given to patient. Increase fluid intake and activity to promote better bowel motility. Patient will return to the office in 3-4 months, sooner on as needed basis. Patient is agreeable to this plan and verbalizes understanding of instructions. She was given the opportunity to ask questions and all questions answered. ? TODAY'S VISIT: Patient is here today for follow-up. Patient reports that she traveled this morning from [facility] where she stayed for 5 days. Patient reports that last night he was sitting in a chair and states that the chair broke and she went straight down. Part of the chair hit her left lower back. Patient believes that she also hit her right leg. Patient reports bruising to her right leg and patient reports chest pain even when she is talking. Taking a deep breath it hurts. Patient denies nausea or vomiting. Denies hitting head. Patient denies headache or dizziness. However patient does feel very weak for some reason. Patient denies any fecal or urinary urgency or incontinence. Denies any tingling in her upper or lower extremities. Patient reports occasional epigastric pain depending on what she eats. For patient denies dyspepsia, , dysphagia or odynophagia. Denies melena, hematochezia, unintentional weight loss or ribbon like stools. [facility], [facility] Medical History Arthritis of left knee Patellofemoral syndrome, left Surgical History History of H/O breast biopsy History of hernia surgery Social History Alcohol intake: never Smoked in Last 30 Days: No Use of substances other than those prescribed or required for medical reasons: No Advance Directives: No Advance Directives Information Provided: No Current occupational status: employed Current occupation: right handed Review of Systems Const Denies weight gain and Denies weight loss ENT Reports no additional complaints, Denies dysphagia and Denies odynophagia Card Reports no additional complaints Resp Reports no additional complaints GI Reports abdominal pain (RUQ, occasional and epigastric), Denies belching, Denies melena, Reports bloating, Denies change in bowel habits, Reports constipation (Occasional), Denies dysphagia, Denies excessive flatus, Denies dyspepsia, Denies heartburn, Denies diarrhea, Denies loose stools, Denies nausea, Denies odynophagia and Denies vomiting Reports no additional complaints Musc Reports no additional complaints Neuro Reports no additional complaints Psych Reports no additional complaints Endo Reports no additional complaints Physical Exam Vital Signs: Last Vital Signs Pulse 74 10/10/25 15:59 BP 136/78 10/10/25 15:59 Pulse Ox 93 10/10/25 15:59 Oxygen Delivery Method Room Air 10/10/25 15:59 BMI result Body Mass Index 30.3 Const General: healthy appearing and no acute distress Nutritional Appearance: obese Orientation/consciousness: patient oriented x3 Resp Effort & Inspection: normal respiratory effort, able to speak in complete sentences, no tracheal deviation and symmetric chest movement Auscultation: clear to auscultation bilaterally Cardio Rate: regular rate GI Inspection: Yes normal to inspection, No distended and Yes obesity Palpation (GI): Soft to palpation, not firm, Tenderness to palpation present (GI) in the RUQ (mild) and No hepatosplenomegaly present Auscultation: normal bowel sounds General: Yes no CVA tenderness Back/Spine/Pelvis Back: no CVA tenderness Skin General skin exam: elasticity normal, turgor normal and dry skin Neuro General: patient oriented x3 Psych Appearance: grossly normal Mental Status: mental status grossly normal Assessment & Plan Assessment & Plan (1) Postprandial abdominal bloating: Code(s): R14.0 - Abdominal distension (gaseous) (2) Short of breath on exertion: Code(s): R06.02 - Shortness of breath (3) Back pain: Code(s): M54.9 - Dorsalgia, unspecified Qualifiers: Back pain laterality: left Back pain location: low back pain Chronicity: acute Sciatica presence: without sciatica Qualified Code(s): M54.50 - Low back pain, unspecified (4) Lower extremity edema: Code(s): R60.0 - Localized edema (5) Chest pain: Code(s): R07.9 - Chest pain, unspecified Qualifiers: Chest pain type: other chest pain Qualified Code(s): R07.89 - Other chest pain Plan Patient will be sent to ED. Patient reports chest pain and shortness of breath at rest. Recent travel to [place]. Patient is not on any anticoagulation medication. Concern for contusion, PE, rib fracture. Patient will need x-rays and possible CT scan. May need ultrasound of right lower extremity. Right lower extremity swelling greater than left. Visible bruise to right calf. Report given to staff in the ED. Patient will be sent downstairs via wheelchair with electromedical equipment technician. Patient will follow-up in our office so we can discuss going for colonoscopy. Patient is agreeable to current plan of care and verbalizes understanding of instructions. He was given the opportunity to ask questions and all questions answered. Thank you for allowing me to participate in her care Coding Level of Care Code Est Pt Level 4 (59550) Complex visit Add On G2211 Diagnoses Postprandial abdominal bloating R14.0 Short of breath on exertion R06.02 Acute left-sided low back pain without sciatica M54.50 Back pain laterality: left Back pain location: low back pain Chronicity: acute Sciatica presence: without sciatica Lower extremity edema R60.0 Other chest pain R07.89 Chest pain type: other chest pain Time Spent (min) 35 Comment 25 minutes spent with patient and additional 10 minutes spent reviewing her records
[2025-10-10 15:59] VITALS: BP 136/78; PULSE 74; O2SAT 93; BMI 30.3
--- OUTSIDE RECORDS SUMMARY | 2025-10-10 20:16 | XMS_ITS | Encounter Summary ---
Author Organization [employer] Address [address] [place] [address] Care Team Providers Care Busher Helper Name Role Phone Name, Keyur VANG Primary Care Provider [phone] Reason for Visit * Reason Comments Med Refill Encounter Details Date Type Department Care Team ([facility] st Contact Info) Description 07/08/2025 Refill [facility] [address] [place], [place] [id number] Name, MD Keyur [address] [place] [address] Chronic low back pain, unspecified back pain [...] AM EDT documented as of this encounter Functional Status * Over the past 2 weeks, how often have you been bothered by any of the following problems? Question Answer Date of Assessment Author Patient Health Questionnaire-2 Score 0 07/08/2025 10:46 AM EDT David Tenorio MA * Little interest or pleasure in doing things Answer Date of Assessment Author Not at all 07/08/2025 10:46 AM EDT Sarah Tenorio MA * Feeling down, depressed, or hopeless Answer Date of Assessment Author Not at all 07/08/2025 10:46 AM NAYT Sarah Tenorio MA * Trouble falling or staying asleep, or sleeping too much Answer Date of Assessment Author Not at all 07/08/2025 10:46 AM Sarah Ivory MA * Feeling tired or having little energy Answer Date of Assessment Author Not at all 07/08/2025 10:46 AM NAYT Sarah Tenorio MA * Poor appetite or overeating Answer Date of Assessment Author Not at all 07/08/2025 10:46 AM NAYT Sarah Tenorio MA * Feeling bad about yourself - or that you are a failure or have let yourself or your family down Answer Date of Assessment Author Not at all 07/08/2025 10:46 AM Sarah Ivory MA * Trouble concentrating on things, such as reading the newspaper or watching television Answer Date of Assessment Author Not at all 07/08/2025 10:46 AM Sarah Ivory MA * Moving or speaking so slowly that other people could have noticed? Or the opposite - being so fidgety or restless that you have been moving around a lot more than usual. Answer Date of Assessment Author Not at all 07/08/2025 10:46 AM Sarah Ivory MA * Thoughts that you would be better off or hurting yourself in some way Answer Date of Assessment Author Not at all 07/08/2025 10:46 AM Sarah Ivory MA * Patient Health Questionnaire-9 Score Answer Date of Assessment Author 0 07/08/2025 10:46 AM Sarah Ivory MA * Over the last 2 weeks, how often have you been bothered by any of the following problems? Question Answer Date of Assessment Author Feeling nervous, anxious, or on edge 0 07/08/2025 10:46 AM Denisa Ivory MA Not being able to stop or control worrying 0 07/08/2025 10:46 AM Denisa Ivory MA Worrying too much about different things 0 07/08/2025 10:46 AM Denisa Ivory MA Trouble relaxing 0 07/08/2025 10:46 AM Sarah Ivory MA Being so restless that it is hard to sit still 0 07/08/2025 10:46 AM Denisa Ivory MA Becoming easily annoyed or irritable 0 07/08/2025 10:46 AM Denisa Ivory MA Feeling afraid as if something awful might happen 0 07/08/2025 10:46 AM EDT Sarah Corea MA AIDEE-7 Total Score 0 07/08/2025 10:46 AM EDT Sarah Tenorio MA documented as of this encounter Plan of Treatment Upcoming Encounters Date Type Department Care Team (Late st Contact Info) Description 03/27/2026 12:45 PM EDT Office Visit [facility] [address] [place] [address] [place], [address] [place] [address] documented as of this encounter Visit Diagnoses Diagnosis Chronic low back pain, unspecified back pain laterality, unspecified whether sciatica present documented in this encounter Additional Health Concerns Assessment Noted Time PHQ-9 Depression Total Score: 0 07/08/20 25 10:46 AM EDT documented as of this encounter Care Teams Busher Helper Relationship Specialty Start Date End Date Name, MD [address] [place] [address] PCP - General Family Medicine 01/04/16 documented as of this encounter
--- OUTSIDE RECORDS SUMMARY | 2025-10-10 20:16 | XMS_ITS | Clinical Summary ---
Author Organization [employer] Address [address] [facility] 7[address] [place] [address] Care Team Providers Care Assembler Fluorescent Lights Name Role Phone Name, Keyur VANG Primary Care Provider [phone] Allergies No known active allergies Medications * [...] 10 doses. 20 tablet 04/28/20 24 Active melatonin 10 MG tablet Take 1 tablet (10 mg) by mouth Once per day. 30 tablet 11 03/02/20 25 2025 Active Elastic Bandages & Supports (TruForm Stockings 20-30mmHg) misc Use bilateral stocking daily 2 each 06/22/20 25 Active diclofenac (Voltaren) 75 MG EC tablet TAKE 1 TABLET BY MOUTH TWICE DAILY IN THE MORNING AND AT BEDTIME NEEDED FOR PAIN. DO NOT BREAK, CRUSH, DISSOLVE OR CHEW. 60 tablet 1 07/08/20 25 Active fluticasone (Flonase) 50 MCG/ACT nasal spray INSTILL 2 SPRAYS IN EACH NOSTRIL ONCE DAILY IN THE MORNING 48 g 2 5 1:06 PM EST 08/17/20 25 Active lidocaine (Lidoderm) 5 % patch APPLY 1 PATCH TOPICALLY TO SKIN, LEAVE ON FOR 12 HOURS AND OFF FOR 12 HOURS DIRECTED 30 patch 1 08/31/20 25 Active Diclofenac Sodium 1 % gel APPLY 2 GRAMS TOPICALLY TO AFFECTED AREA(S) OF WRIST THREE TIMES DAILY NEEDED FOR PAIN 100 g 1 10/06/20 25 Active Diclofenac Sodium 1 % gel APPLY 2 GRAMS TOPICALLY TO AFFECTED AREA(S) OF WRIST THREE TIMES DAILY NEEDED FOR PAIN 100 g 1 5 1:06 PM EST 08/18/20 25 2024 Discontinued Active Problems Problem Noted [...] for help PLAN: 1. Follow up with [facility]: Not recommended for follow-up 2. Patient goal [...] Encounters Date Type Department Care Team Description 10/10/2025 Orders Only [facility] External Provider, [facility] 10/06/2025 Refill [facility] [address] [place] [phone] NameKeyur MD 09/26/2025 10:00 AM EST Office Visit [facility] [address] [place] [address] Ines Garg 09/26/2025 8:30 AM EST Office Visit [facility] [address] [place] [address] Asia Granado DDS Tooth sensitivity to cold (Primary Dx); Primary occlusal trauma 08/31/2025 Refill [facility] [address] [place] [address] Keyur Crawford MD 08/18/2025 Refill [facility] [address] [place] [phone] Keyur Crawford MD 08/17/2025 Refill [facility] [address] [place] [phone] Emeli Jean NP 08/15/2025 Telephone [facility] [address] [place] [phone] Keyur Crawford MD Results from Last 3 Months Immunizations Immunization Administration [...] 07/08/2025 10:44 AM EDT Plan of Treatment Upcoming Encounters Date Type Department Care Team (Late st Contact Info) Description 03/27/2026 12:45 PM EDT Office Visit [facility] [address] [place] [address] [place], Jammie [address] [place] [address] Health Maintenance Due Date Last Done Comments CT Colonography 1965 Dental Oral Exam 1965 FIT DNA/Cologuard 1965 FIT 1965 FOBT 1965 Sigmoidoscopy 1965 Pneumococcal Vaccine: 50+ Years (1 of 1 - PCV) 2015 HPV/Cotest 08/12/2024 08/11/2019 Pap Smear 08/12/2024 08/12/2019 Hepatitis B Vaccines (2 of 3 - 19+ 3-dose series) 10/18/2024 09/20/2024 COVID-19 Vaccine ( - season) 2025 11/27/2021, 04/03/2021, 03/09/2021 Influenza Vaccine (#1) 2025 , 08/07/2020, 09/19/2014, Additional history exists Dental X-Ray: Full Mouth 09/26/2025 09/25/2022 Dental Prophylaxis 03/27/2026 09/26/2025, 10/24/2022 Alcohol/Substance Use Screening 07/08/2026 07/08/2025 Depression Screening 07/08/2026 07/08/2025, 07/08/20 Disability Screening 07/08/2026 07/08/2025 SDOH Screening 07/08/2026 07/08/2025 Tobacco Screening 09/26/2026 09/26/2025 Dental X-Ray: Bitewings 09/27/2026 09/26/2025, 09/26 Mammogram 05/25/2027 05/25/2025, 04/18, 05/09/2023, Additional history exists Colonoscopy 06/10/2027 06/10/2017 Colorectal Cancer Screening 06/10/2027 Cervical Cancer Screening 01/25/2030 Po stponed from 08/12/2024 (Other Medical Reasons) Lipid Panel 07/08/2030 07/08/2025, 11/0 11/2023, 05/01/2023, Additional history exists DTaP/Tdap/Td Vaccines (3 - [...] Procedure Name Priority Date/Time Associated Diagnosis Comments CT LUMBAR SPINE WO CONTRAST Routine 10/10/2025 7:26 PM EST HIGH SENSITIVITY TROPONIN I Routine 10/10/2025 6:08 PM EST BASIC METABOLIC PANEL Routine 10/10/2025 6:08 PM EST HEPATIC FUNCTION PANEL Routine 6:08 PM EST CBC WITH AUTO DIFFERENTIAL Routine 10/10/2025 6:08 PM EST XR LUMBAR SPINE 2-3 VIEWS Routine 10/10/2025 5:53 PM EST XR CHEST 2 VIEWS Routine 10/10/2025 5:50 PM EST BITEWINGS - 4 RADIOGRAPHIC IMAGES Routine 09/26/2025 10:00 AM EST PROPHYLAXIS - ADULT Routine 09/26/2025 1 0:00 AM EST CASE PRESENTATION, DETAILED AND EXTENSIVE TREATMENT PLANNING Routine 09/26/2025 8:30 AM EST BITEWING - SINGLE RADIOGRAPHIC IMAGE Routine 09/26/2025 8:30 AM EST INTRAORAL - PERIAPICAL FIRST RADIOGRAPHIC IMAGE Routine 09/26/2025 8:30 AM EST LIMITED ORAL EVALUATION - PROBLEM FOCUSED Routine 09/26/2025 8:30 AM EST LIPID PANEL, STANDARD Routine 07/08/2025 11:22 AM EDT PE (physical exam), routine BI MAMMOGRAM SCREENING TOMOSYNTHESIS BILATERAL Routine 05/25/2025 10:40 AM EDT HM PAP/HPV Routine 08/12/2019 12:00 AM EDT ZZZ HISTORICAL HPV MRNA E6/E7 Routine 08/11/2019 9:34 AM EDT HM COLONOSCOPY Routine 06/10/2017 2:50 PM EDT HM HEPATITIS C ANTIBODY Routine 04/24/2017 HM HIV 1/2 ANTIGEN AND ANTIBODY Routine 04/24/2017 from Last 3 Months or Most Recently Relevant to Health Maintenance Results * CT Lumbar Spine w/o Contrast (10/10/2025 7:26 PM EST) Anatomical Region Laterality Modality Spine, L-spine Computed Tomogra phy 10/10/2025 7:26 PM EST Narrative 10/10/2025 7:28 PM EST [place] [address] CT Scan Report Signed Patient: Celena Kwan MR#: [id number] : 1965 Acct:[id number] Age/Sex: 59 / F ADM Date: 10/10/25 Loc: HO.ED Attending Dr: Ordering Physician: Alejandra Muse DO Date of Service: 10/10/25 Procedure(s): CT lumbar spine wo IV con Accession Number(s): [id number] cc: Alejandra Muse DO; Name,Keyur VANG Report Number: [id number]: Total DLP = 525.00 mGy-cm Reason for Exam: back trauma CLINICAL HISTORY: back trauma Exam: Nonenhanced CT lumbar spine. Comparison: Same-day lumbar radiographs. Findings: Osseous structures: Lumbar vertebral heights and alignment are maintained. No lumbar vertebral fractures or traumatic malalignment. There is transitional anatomy with presumed partial lumbarization of the S1. 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 There is disc space narrowing and vacuum phenomenon at L5-S1. Remaining intervertebral disc heights appear maintained. There is diffuse jjjj-xa-vxhhprsp lumbar vertebral body spurring. Soft tissues: No gross abnormal epidural or paraspinal soft tissues appreciated. There may be some mild disc bulging L2-S1, without definitive significant central canal stenoses. Visualized visceral structures reveal no acute abnormalities. Impression: 1. No lumbar vertebral fractures or traumatic malalignment. 2. Transitional anatomy and degenerative changes as described above. This document has been electronically signed by: Jonny Maynard MD on 10/10/2025 19:26:41 Dictated By: Jonny Maynard MD Signed By: <Electronically signed by Jonny Maynard MD in OV> 10/10/251926 DD/ 25 TD/TT: 10/10/251925 Nurse Tech: Procedure Note Donotuseinterpreter, Image - 10/10/[address] [address] [address] Scan Report Signed Patient: Bladimir Kwan#: [id number] : 1965Acct:[id number] Age/Sex: 59 / FADM Date: 10/10/25 Loc: HO.ED Attending Dr: Ordering Physician: Alejandra Muse DO Date of Service: 10/10/25 Procedure(s): CT lumbar spine wo IV con Accession Number(s): [id number] cc: Alejandra Muse DO; Name,Keyur VANG Report Number: [id number]: Total DLP = 525.00 mGy-cm Reason for Exam: back trauma CLINICAL HISTORY: back trauma Exam: Nonenhanced CT lumbar spine. Comparison: Same-day lumbar radiographs. Findings: Osseous structures: Lumbar vertebral heights and alignment are maintained. No lumbar vertebral fractures or traumatic malalignment. There is transitional anatomy with presumed partial lumbarization of the S1. 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 There is disc space narrowing and vacuum phenomenon at L5-S1. Remaining intervertebral disc heights appear maintained. There is diffuse irox-qp-tbgegywp lumbar vertebral body spurring. Soft tissues: No gross abnormal epidural or paraspinal soft tissues appreciated. There may be some mild disc bulging L2-S1, without definitive significant central canal stenoses. Visualized visceral structures reveal no acute abnormalities. Impression: 1. No lumbar vertebral fractures or traumatic malalignment. 2. Transitional anatomy and degenerative changes as described above. This document has been electronically signed by: Jonny Maynard MD on 10/10/2025 19:26:41 Dictated By: Jonny Maynard MD Signed By: <Electronically signed by Jonny Maynard MD in OV> 10/10/251926 DD/ 25 TD/TT: 10/10/251925 Nurse Tech: us [facility] External Provider IMG CT PROCEDURES Final Result * High Sensitivity Troponin I (10/10/2025 6:08 PM EST) [facility] TROPONIN I HIGH SENSITIVITY 2.8 <3.5 - 17.0 ng/L [facility] Comment:The [place] high sens itivity Troponin-I results should beused in conjunction with other diagnostic information suchas ECG, clinical observations and information, and patientsymptoms to aid in the diagnosis of IL. 10/10/2025 6:08 PM EST 10/10/2025 6:10 PM EST Generic External Data Provider LAB BLOOD ORDERAB LES Final Result Performing Organization Address City/State/[facility] Co de Phone Number [facility] [address] [place] [phone] * CBC auto differential (10/10/2025 6:08 PM EST) [facility] White Blood Count 8.2 4.8 - 10.8 X10*3/uL [facility] Red Blood Count 4.25 4.20 - 5.50 X10*6/uL [facility] Hemoglobin 12.1 12.0 - 16.0 g/dl [facility] Hematocrit 38.0 37.0 - 47.0 % [facility] Mean Corpuscular Volume 89.4 80.0 - 98.0 fL [facility] Mean Corpuscular Hemoglobin 28.5 27.0 - 33.0 pg [facility] Mean Corpuscular HGB Conc 31.8 31.0 - 35.0 g/dl [facility] Red Cell Distribution Width 12.8 11.0 - 16.0 % [facility] Platelet Count 248 160 - 400 X10*3/uL [facility] Mean Platelet Volume 11.7 9.4 - 12.3 fL [facility] Neutrophils Percent Auto 57.8 45 - 73 % [facility] Imm Gran Pct Auto 0.2 0.0 - 0.4 % [facility] Lymphocytes Percent Auto 33.2 20 - 40 % [facility] Monocytes Percent Auto 6.1 2 - 11 % [facility] Eosinophils Percent Auto 2.2 0 - 4 % [facility] Basophils Percent Auto 0.5 0 - 2 % [facility] NRBC Pct Auto 0.0 0.0 - 0.2 /100WBC [facility] Neutrophils Absolute Auto 4.7 2.0 - 8.3 x10*3/uL [facility] Imm Gran Abs Auto 0.02 0.00 - 0.03 X10*3/uL [facility] Lymphocytes Absolute Auto 2.7 1.2 - 4.9 X10*3/uL [facility] Monocytes Absolute Auto 0.5 0.1 - 1.2 X10*3/uL [facility] Eosinophils Absolute Auto 0.2 0.0 - 0.4 X10*3/uL [facility] Basophils Absolute Auto 0.0 0.0 - 0.2 X10*3/uL [facility] NRBC Abs Auto 0.000 0.0 - 0.012 X10*3/uL [facility] 10/10/2025 6:08 PM EST 10/10/2025 6:10 PM EST us Generic External Data Provider LAB BLOOD ORDERAB LES Final Result [facility] [address] [place] [address] [phone] * (ABNORMAL) Hepatic Function Panel (10/10/2025 6:08 PM EST) Bilirubin, Total 0.8 0.0 - 1.0 mg/dL [facility] Bilirubin, Direct 0.3 0.0 - 0.5 mg/dL [facility] Aspartate Amino Transferase 17 5 - 31 U/L [facility] Alanine Aminotransferase 18 0 - 31 U/L [facility] Total Protein 7.6 6.5 - 8.0 g/dL [facility] Albumin Level 4.6 3.5 - 5.0 g/dL [facility] Alkaline Phosphatase 118(H) 39 - 117 U/L [facility] 10/10/2025 6:08 PM EST 10/10/2025 6:10 PM EST us Generic External Data Provider LAB BLOOD ORDERAB LES Final Result [facility] [address] [place] [phone] * (ABNORMAL) Basic Metabolic Panel (10/10/2025 6:08 PM EST) Sodium 143 135 - 145 mmol/L [facility] Potassium 4.0 3.3 - 5.1 mmol/L [facility] Chloride 112(H) 96 - 108 mmol/L [facility] Carbon Dioxide 24 22 - 29 mmol/L [facility] Anion Gap 11(L) 12 - 20 [facility] Urea Nitrogen (BUN) 18(H) 9 - 16 mg/dL [facility] Creatinine, Serum 0.74 0.5 - 1.4 mg/dL [facility] Creatinine Clr Calc Pharmacy 75.5 [facility] Comment:Provided height and weight: 152.4 cm,77.9 kg.eGFR (calculated from the MDRD study equation) and eCrCl(calculated from the Cockcroft-Gault equation) are based ondifferent parameters and may not yield comparable results.If eCrCl result is absurd, please check patient'sheight/weight. Estimated Glomerular Filt Rate >60 [facility] Comment:Chronic Kidney Disea se: Estimated GFR < 60 mL/min/1.49y5Pucwwu Kidney Disease: Estimated GFR < 15 mL/min/1.73m2 Glucose 95 60 - 115 mg/dL [facility] Calcium 9.6 8.4 - 10.2 mg/dL [facility] 10/10/2025 6:08 PM EST 10/10/2025 6:10 PM EST us Generic External Data Provider LAB BLOOD ORDERAB LES Final Result [facility] [address] [place] [phone] * XR Lumbar Spine 2-3 Views (10/10/2025 5:53 PM EST) Anatomical Region Laterality Modality Spine, L-spine Radiographic Nanda ging 10/10/2025 5:53 PM EST Narrative 10/10/2025 5:55 PM EST [address] [address] XRay Report Signed Patient: Celena Kwan MR#: [id number] : 1965 Acct:[id number] Age/Sex: 59 / F ADM Date: 10/10/25 Loc: .ED Attending Dr: Ordering Physician: Yadira Mederos Date of Service: 10/10/25 Procedure(s): XR lumbar spine 2-3V Accession Number(s): [id number] cc: Keyur Crawford MD; Yadira Mederos Reason for Exam: pain s/p fall CLINICAL HISTORY: pain s p fall 3 views lumbar spine Comparison: None Findings: There appears to be transitional anatomy with partial lumbarization of the S1. 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 No fractures or dislocations. Normal vertebral body alignment. There is diffuse mild lumbar vertebral body spurring. There is disc space narrowing, most significant at L5-S1 level. There is bilateral facet arthropathy, more significant L4-S1. Impression: 1. Transitional anatomy and lumbar degenerative changes as described above. This document has been electronically signed by: Jonny Maynard MD on 10/10/2025 17:53:27 Dictated By: Jonny Maynard MD Signed By: <Electronically signed by Jonny Maynard MD in OV> 10/10/251753 DD/ 52 TD/TT: 10/10/251752 Nurse Tech: Procedure Note Donotuseinterpreter, Image - 10/10/[address] [address] XRay Report Signed Patient: Matthew KwanR#: [id number] : 1965Acct:[id number] Age/Sex: 59 / FADM Date: 10/10/25 Loc: HO.ED Attending Dr: Ordering Physician: Yadira Mederos Date of Service: 10/10/25 Procedure(s): XR lumbar spine 2-3V Accession Number(s): [id number] cc: Keyur Crawford MD; Yadira Mederos Reason for Exam: pain s/p fall CLINICAL HISTORY: pain s p fall 3 views lumbar spine Comparison: None Findings: There appears to be transitional anatomy with partial lumbarization of the S1. 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 No fractures or dislocations. Normal vertebral body alignment. There is diffuse mild lumbar vertebral body spurring. There is disc space narrowing, most significant at L5-S1 level. There is bilateral facet arthropathy, more significant L4-S1. Impression: 1. Transitional anatomy and lumbar degenerative changes as describedabove. This document has been electronically signed by: Jonny Maynard MD on 10/10/2025 17:53:27 Dictated By: Jonny Maynard MD Signed By: <Electronically signed by Jonny Maynard MD in OV> 10/10/251753 DD/ 52 TD/TT: 10/10/251752 Nurse Tech: [facility] External Provider IMG XR PROCEDURES Final Result * XR Chest 2 Views (10/10/2025 5:50 PM EST) Anatomical Region Laterality Modality Chest Radiographic Nanda ging 10/10/2025 5:50 PM EST Narrative 10/10/2025 5:51 PM EST [address] [address] XRay Report Signed Patient: Celena Kwan MR#: [id number] : 1965 Acct:[id number] Age/Sex: 59 / F ADM Date: 10/10/25 Loc: HO.ED Attending Dr: Ordering Physician: Yadira Mederos Date of Service: 10/10/25 Procedure(s): XR chest 2V Accession Number(s): [id number] cc: Keyur Crawford MD; Yadira Mederos Reason for Exam: pain CLINICAL HISTORY: pain 2 view chest x-ray. Comparison: 03/17/2024 Findings: No consolidation or effusion. Cardiac and mediastinal contours are stable. Bones unremarkable. Impression: 1. No acute pulmonary disease. This document has been electronically signed by: Jonny Maynard MD on 10/10/2025 17:50:20 Dictated By: Jonny Maynard MD Signed By: <Electronically signed by Jonny Maynard MD in OV> 10/10/251750 DD/ 49 TD/TT: 10/10/251749 Nurse Tech: Procedure Note Donotuseinterpreter, Image - 10/10/2025 [place] [address] XRay Report Signed Patient: Matthew KwanR#: [id number] : 1965Acct:[id number] Age/Sex: 59 / FADM Date: 10/10/25 Loc: .ED Attending Dr: Ordering Physician: Yadira Mederos Date of Service: 10/10/25 Procedure(s): XR chest 2V Accession Number(s): [id number] cc: Keyur Crawford MD; Yadira Mederos Reason for Exam: pain CLINICAL HISTORY: pain 2 view chest x-ray. Comparison: 03/17/2024 Findings: No consolidation or effusion. Cardiac and mediastinal contours are stable. Bones unremarkable. Impression: 1. No acute pulmonary disease. This document has been electronically signed by: Jonny Maynard MD on 10/10/2025 17:50:20 Dictated By: Jonny Maynard MD Signed By: <Electronically signed by Jonny Maynard MD in OV> 10/10/251750 DD/ 49 TD/TT: 10/10/251749 Nurse Tech: us [facility] External Provider IMG XR PROCEDURES Final Result * (ABNORMAL) Lipid Panel, Standard (07/08/2025 11:22 AM EDT) Triglycerides 107 <150 mg/dL [facility] Comment:Desirable Triglyceri de: less than 150 mg/dLBorderline High Triglyceride 150-199 mg/dLHigh Triglyceride: 200-499 mg/dLVery High Triglyceride: greater than or equal to 5OO mg/dL Cholesterol 197 <200 mg/dL [facility] Comment:Desirable Cholestero l: less than 200 mg/dLBorderline High Cholesterol: 200-239 mg/dLHigh Cholesterol: greater than 239 mg/dL LDL Cholesterol Calculated 124(H) <100 mg/dL [facility] Comment:Desirable LDL: less than 100 mg/dLNear Optimal/Above Optimal LDL: 110- 129 mg/dLBorderline High LDL: 130-159 mg/dLHigh LDL: 160-189 mg/dLVery High LDL: greater than or equal to 190 mg/dL HDL Cholesterol 52 >40 mg/dL [facility] Comment:Desirable HDL: great er than 40 mg/dL Note: This HDL assay may give artificially low results in patients with liver disease. Blood Venous blood specimen / Unknown 07/08/2025 11:22 AM EDT 07/08/2025 11:51 AM EDT Keyur Crawford MD LAB BLOOD ORDERABLES Final Resul t [facility] [address] [place] [address] [place] [phone] * BI Mammogram Screening Tomosynthesis Bilateral (05/25/2025 10:40 AM EDT) Anatomical Region Laterality Modality Breast Bilateral Mammography 05/25/2025 10:4 0 AM EDT Narrative 06/07/2025 9:48 AM EDT [facility] [address] [place] [address] Mammography Report Signed Patient: Celena Kwan MR#: [id number] : 1965 Acct:[id number] Age/Sex: 59 / F ADM Date: 05/25/25 Loc: DEMETRICEO Attending Dr: Keyur Crawford MD Ordering Physician: Keyur Crawford MD Results: 1Negative Date of Service: 05/25/25 Follow Up: 1 Year From Orig inal Mammogram Procedure(s): MM tomosynthesis screening BI Accession Number(s): [id number] cc: NameKeyur MD EXAMINATION: MM SCREENING DIGITAL [...] 06/07/25 0945 DD/ 1040 TD/TT: 05/25/25 1100 Nurse Tech: Procedure Note Donotuseinterpreter, Image - 06/07/2025 [facility] [address] [place] [address] [place] [address] Mammography Report Signed Patient: Matthew KwanR#: [id number] : 1965Acct:[id number] Age/Sex: 59 / FADM Date: 05/25/25 Loc: MAMMO Attending Dr: Keyur Crawford MD Ordering Physician: Keyur Crawfordesults: 1Negative Date of Service: 05/25/25Follow Up: 1 Year From Orig ina Mammogram Procedure(s): MM tomosynthesis screening BI Accession Number(s): [id number] cc: Keyur Crawford MD EXAMINATION: MM SCREENING [...] 06/07/25 0945 DD/ 1040 TD/TT: 05/25/25 1100 Nurse Tech: Keyur Crawford MD IMG BI PROCEDURES Final Result * Hm Pap Smear (08/12/2019 12:00 AM EDT) Historical Provider HEALTH MAINTENANCE Final Result * HPV mRNA E6/E7 (08/11/2019 9:34 AM EDT) HPV mRNA E6/E7 Not Detected NOT DETECTED [facility] Comment: This test was performed using the APTIMA(R) HPV Assay ([employer] This assay detects E6/E7 viral messenger RNA (mRNA) from 14 high-risk HPV types (16,18,31,33,35,39,45,51, 52,56,58,59,66,68). For additional information please refer to: http://education.Loomio.GlobalMotion/faq/CPL050d6 (This link is being provided for informational/ educational purposes only.) The analytical performance characteristics of this assay have been determined by [facility] [place], [place]. The modifications have not been cleared or approved by the FDA. This assay has been validated pursuant to the CLIA regulations and is used for clinical purposes. Test Performed by [facility], [facility] [place], [address] [place] [address] Mingo Langford M.D., Ph.D., Director of Laboratories , CLIA [id number] Please note: Effective 07/29/2016, HPV testing will be performed using [employer]'s APTIMA test which targets mRNA. Detecting mRNA instead of DNA, as in older methods, offers significant improvements in specificity. 08/11/2019 9:34 AM EDT Milena Murphy CNOsvaldo HISTORICAL/NON ORDERABLE LABS Final Result [facility] Critical [facility] [address] * Colonoscopy (06/10/2017 2:50 PM EDT) [...] Most Recently Relevant to Health Maintenance Insurance [employer] [facility] STAND ADULT Care Teams Assembler Fluorescent Lights Relationship Specialty Start Date End Date Name, MD Keyur [address] [place] [phone] PCP - General Family Medicine 01/04/16
--- OUTSIDE RECORDS SUMMARY | 2025-10-10 20:16 | XMS_ITS | Encounter Summary ---
Author Organization [employer] Address [address] [place] [address] [address] [place] [address] Care Team Providers Care Ultrasound Sonographer Name Role Phone Name, Keyur VANG Primary Care Provider [phone] Encounter Details Date Type Department Care Team (Late Contact Info) Description 01/13/2023 Orders Only [facility] MED [facility] PEDS [address] [place], [place] [phone] Sonya Cervantes LPN Social History Tobacco Use [...] Description 03/27/2026 12:45 PM EDT Office Visit [facility] ADULT DENTAL [address] [place], [place] [phone] [place], Jammie [address] [place], [place] [phone] documented as of this encounter Procedures Procedure [...] HIGH SENSITIVITY <2.7 <3.5 - 17.0 ng/L [facility] Comment:The [place] high sens itivity Troponin-I results should beused in conjunction with other diagnostic information suchas ECG, clinical observations and information, and patientsymptoms to aid in the diagnosis of [place]. 04/28/2023 2:07 PM EDT 04/28/2023 2:14 PM EDT [facility] External Provider LAB BLO OD ORDERABLES Final Result [facility] [address] [place] [phone] * Basic Metabolic Panel (04/28/2023 2:07 PM EDT) Sodium 141 135 - 145 mmol/L [facility] Potassium 4.7 3.3 - 5.1 mmol/L [facility] Chloride 107 96 - 108 mmol/L [facility] Carbon Dioxide 25 22 - 29 mmol/L [facility] Anion Gap 14 12 - 20 [facility] Urea Nitrogen (BUN) 13 9 - 16 mg/dL [facility] Creatinine, Serum 0.87 0.5 - 1.4 mg/dL [facility] Creatinine Clr Calc Pharmacy 66.0 [facility] Comment:Provided height and weight: 154.94 cm,74.843 kg.eGFR (calculated from the MDRD study equation) and eCrCl(calculated from the Cockcroft-Gault equation) are based ondifferent parameters and may not yield comparable results.If eCrCl result is absurd, please check patient'sheight/weight. Estimated Glomerular Filt Rate >60 [facility] Comment:NOTE: For -Am erican individuals, multiply the result by 1.210.Chronic Kidney Disease: Estimated GFR < 60 mL/min/1.39g2Kdmnct Kidney Disease: Estimated GFR < 15 mL/min/1.73m2 Glucose 105 60 - 115 mg/dL [facility] Calcium 10.0 8.4 - 10.2 mg/dL [facility] 04/28/2023 2:07 PM EDT 04/28/2023 2:14 PM EDT us [facility] External Provider LAB BLO OD ORDERABLES Final Result [facility] [address] [place] [phone] * Hepatic Function Panel (04/28/2023 2:07 PM EDT) Bilirubin, Total 0.8 0.0 - 1.0 mg/dL [facility] Bilirubin, Direct 0.2 0.0 - 0.5 mg/dL [facility] Aspartate Amino Transferase 16 5 - 31 U/L [facility] Alanine Aminotransferase 16 0 - 31 U/L [facility] Total Protein 7.4 6.5 - 8.0 g/dL [facility] Albumin Level 4.4 3.5 - 5.0 g/dL [facility] Alkaline Phosphatase 112 39 - 117 U/L [facility] 04/28/2023 2:07 PM EDT 04/28/2023 2:14 PM EDT [facility] External Provider LAB BLO OD ORDERABLES Final Result Performing Organization Address [facility] Co de Phone Number [facility] [address] [place] [phone] * Urinalysis with reflex microscopic (04/28/2023 2:07 PM EDT) Color Urine Yellow [facility] Appearance Urine Clear [facility] PH 6.0 5.0 - 9.0 [facility] Glucose Urine UA Negative Negative mg/dL [facility] Urine Blood Negative Negative [facility] Specific Fowler - Urine 1.010 1.005 - 1.025 [facility] Urine Protein Negative Neg-Trace mg/dL [facility] Urine Ketones Negative Negative mg/dL [facility] Nitrite Urine Negative Negative [facility] Leukocyte Esterase Urine Negative Negative [facility] 04/28/2023 2:07 PM EDT 04/28/2023 2:14 PM EDT Narrative [facility] - 04/28/2023 2:28 PM EDT 1341Urine, Clean Catch [facility] External Provider LAB URI NE ORDERABLES Final Result Performing Organization Address [facility] Co de Phone Number [facility] [address] [place] [phone] * Drug Monitoring, Panel 1, Screen, Urine (04/28/2023 2:07 PM EDT) Opiate Screen Urine Not Detected Not Detect [facility] Comment:Opiate cut-off is 30 0 ng/mL.Positive results are unconfirmed and should not be used fornon-medical purposes. Barbiturates, Urine Not Detected Not Detect [facility] Comment:Barbiturate cut-off is 200 ng/mL.Positive results are unconfirmed and should not be used fornon-medical purposes. Phencyclidine Screen Urine Not Detected Not Detect [facility] Comment:Phencyclidine cut-of f is 25 ng/mL.Positive results are unconfirmed and should not be used fornon-medical purposes. Amphetamine Screen Urine Not Detected Not Detect [facility] Comment:Amphetamine cut-off is 1000 ng/mL.Positive results are unconfirmed and should not be used fornon-medical purposes. Benzodiazepines Screen Urine Not Detected Not Detect [facility] Comment:Benzodiazepine cut-o ff is 200 ng/mL.Positive results are unconfirmed and should not be used fornon-medical purposes. Cocaine Screen Urine Not Detected Not Detect [facility] Comment:Cocaine cut-off is 3 00 ng/mL.Positive results are unconfirmed and should not be used fornon-medical purposes. Cannabinoid Screen Urine Not Detected Not Detect [facility] Comment:Cannabinoid cut-off is 50 ng/mL.Positive results are unconfirmed and should not be used fornon-medical purposes. FENTANYL URINE Not Detected Not Detect [facility] Comment:Fentanyl cut-off is 1 ng/mL.Positive results are unconfirmed and should not be used fornon-medical purposes. 04/28/2023 2:07 PM EDT 04/28/2023 2:14 PM EDT [facility] External Provider LAB URI NE ORDERABLES Final Result [facility] [address] [place] [phone] * (ABNORMAL) CBC auto differential (04/28/2023 2:07 PM EDT) White Blood Count 6.6 4.8 - 10.8 X10*3/uL [facility] Red Blood Count 4.32 4.20 - 5.50 X10*6/uL [facility] Hemoglobin 12.2 12.0 - 16.0 g/dl [facility] Hematocrit 38.9 37.0 - 47.0 % [facility] Mean Corpuscular Volume 90.0 80.0 - 98.0 fL [facility] Mean Corpuscular Hemoglobin 28.2 27.0 - 33.0 pg [facility] Mean Corpuscular HGB Conc 31.4 31.0 - 35.0 g/dl [facility] Red Cell Distribution Width 12.1 11.0 - 16.0 % [facility] Platelet Count 233 160 - 400 X10*3/uL [facility] Mean Platelet Volume 12.1 9.4 - 12.3 fL [facility] Neutrophils Percent Auto 79.2(H) 45 - 73 % [facility] Imm Gran Pct Auto 0.3 0.0 - 0.4 % [facility] Lymphocytes Percent Auto 16.5(L) 20 - 40 % [facility] Monocytes Percent Auto 2.9 2 - 11 % [facility] Eosinophils Percent Auto 0.5 0 - 4 % [facility] Basophils Percent Auto 0.6 0 - 2 % [facility] NRBC Pct Auto 0.0 0.0 - 0.2 /100WBC [facility] Neutrophils Absolute Auto 5.2 2.0 - 8.3 x10*3/uL [facility] Imm Gran Abs Auto 0.02 0.00 - 0.03 X10*3/uL [facility] Lymphocytes Absolute Auto 1.1(L) 1.2 - 4.9 X10*3/uL [facility] Monocytes Absolute Auto 0.2 0.1 - 1.2 X10*3/uL [facility] Eosinophils Absolute Auto 0.0 0.0 - 0.4 X10*3/uL [facility] Basophils Absolute Auto 0.0 0.0 - 0.2 X10*3/uL [facility] NRBC Abs Auto 0.000 0.0 - 0.012 X10*3/uL [facility] 04/28/2023 2:07 PM EDT 04/28/2023 2:14 PM EDT us [facility] External Provider LAB BLO OD ORDERABLES Final Result [facility] [address] [place] [phone] documented in this encounter Visit Diagnoses Not on filedocumented in this encounter Care Teams Ultrasound Sonographer Relationship Specialty Start Date End Date Name, MD Keyur [address] [place] [address] PCP - General Family Medicine 01/04/16 documented as of this encounter
--- OUTSIDE RECORDS SUMMARY | 2025-10-10 20:16 | XMS_ITS | Encounter Summary ---
Author Organization [employer] Address [address] [facility] [address] [place] [address] Care Team Providers Care Transcribing Machine Mechanic Name Role Phone Name, Keyru VANG Primary Care Provider [phone] Reason for Visit * Reason Comments Med Refill Encounter Details Date Type Department Care Team ([facility] st Contact Info) Description 04/22/2025 Refill [facility] MED & PEDS [address] [place], [place] [phone] Name, MD Keyur [address] [place] [address] Social History Tobacco Use Types Packs/Day Years [...] Description 03/27/2026 12:45 PM EDT Office Visit [facility] ADULT DENTAL [address] [place] [address] Jammie Ibrahim [address] [place] [phone] documented as of this encounter Visit Diagnoses Not on filedocumented in this encounter Additional Health Concerns Assessment Noted Time PHQ-9 Depression Total Score: 0 06/30/20 24 3:03 PM EDT documented as of this encounter Care Teams Transcribing Machine Mechanic Relationship Specialty Start Date End Date Name, MD Keyur [address] [place] [address] PCP - General Family Medicine 01/04/16 documented as of this encounter
--- OUTSIDE RECORDS SUMMARY | 2025-10-10 20:16 | XMS_ITS | Encounter Summary ---
Author Organization [employer] Address [address] [facility] [address] [place] [address] Care Team Providers Care Cutter And Paster Press [employer]ppings Name Role Phone Name, Keyur VANG Primary Care Provider [phone] Reason for Visit * Reason Comments Med Refill Encounter Details Date Type Department Care Team ([facility] Contact Info) Description 10/06/2025 Refill [facility] [address] [place], [place] [phone] Name, MD Keyur [address] [place] [address] Social History Tobacco Use Types Packs/Day Years [...] Description 03/27/2026 12:45 PM EDT Office Visit [facility] ADULT DENTAL [address] [place] [address] Jammie Ibrahim [address] [place] [address] documented as of this encounter Visit Diagnoses Not on filedocumented in this encounter Additional Health Concerns Assessment Noted Time PHQ-9 Depression Total Score: 0 07/08/20 25 10:46 AM EDT documented as of this encounter Care Teams Cutter And Paster [employer] Relationship Specialty Start Date End Date Name, MD Keyur [address] [place] [address] PCP - General Family Medicine 01/04/16 documented as of this encounter
--- OUTSIDE RECORDS SUMMARY | 2025-10-10 20:16 | XMS_ITS | Clinical Summary ---
Author Organization [facility] Address [address] [place] [phone] Phone Care Team Providers Care Hospice Superintendent Name Role Phone Name, Keyur VANG Primary Care Provider [phone] Allergies No known active allergies Medications No [...] 2015 ZOSTER VACCINES (1 of 2) 2015 INFLUENZA VACCINE (#1) 2025 COVID-19 VACCINE ( - 2024-2 6 season) 2025 SCREENING FOR DIABETES 04/15/2027 04/15/2024 RSV VACCINE (1 - 1-dose 75+ series) 2040 HEPATITIS A VACCINES Aged Out No long [...] Devices Not on file Insurance C3 ACO C3 ACO C3 ACO C3 ACO Care Teams Hospice Superintendent Relationship Specialty Start Date End Date Name, MD Keyur [address] [place] [address] PCP - General Internal Medicine 04/15/24 Additional Source Comments The information contained in this document represents components of the legal health record. It is not the complete legal health record.[facility]
--- OUTSIDE RECORDS SUMMARY | 2025-10-10 20:16 | XMS_ITS | Encounter Summary ---
Author Organization [employer] Address [address] [place] [address] [address] [place] [address] Care Team Providers Care Liquid Sugar Fortifier Name Role Phone Name, Keyur VANG Primary Care Provider [phone] Encounter Details Date Type Department Care Team (Late Contact Info) Description 06/24/2023 Abstract [facility] ADULT DENTAL [address] [place], [place] [phone] sAia Granado, DARNELLS [address] [place], [place] [phone] Social History Tobacco Use Types Packs/Day Years [...] Department Care Team (Late Contact Info) Description 03/27/2026 12:45 PM EDT Office Visit [facility] ADULT DENT[facility] [address] [place] [address] Jammie Ibrahim [address] [place] [address] documented as of this encounter Visit Diagnoses Not on filedocumented in this encounter Additional Health Concerns Assessment Noted Time PHQ-9 Depression Total Score: 0 05/01/20 23 11:08 AM EDT documented as of this encounter Care Teams Liquid Sugar Fortifier Relationship Specialty Start Date End Date Name, MD Keyur [address] [place] [address] PCP - General Family Medicine 01/04/16 documented as of this encounter
--- OUTSIDE RECORDS SUMMARY | 2025-10-10 20:16 | XMS_ITS | Encounter Summary ---
Author Organization [employer] Address [address] [facility] [address] [place] [address] Care Team Providers Care Financial Service Professional Name Role Phone Name, Keyur VANG Primary Care Provider [phone] Encounter Details Date Type Department Care Team ([facility] Contact Info) Description 10/10/2025 Orders Only [facility] External Provider, [facility] Social History Tobacco Use Types Packs/Day Years [...] 12:45 PM EDT Office Visit [facility] [address] [place] [address] [place], Jammie [address] [place] [address] documented as of this encounter Procedures Procedure Name Priority Date/Time Associated Diagnosis Comments CT LUMBAR SPINE WO CONTRAST Routine 10/10/2025 7:26 PM EST HIGH SENSITIVITY TROPONIN I Routine 10/10/2025 6:08 PM EST CBC WITH AUTO DIFFERENTIAL Routine 10/10/2025 6:08 PM EST HEPATIC FUNCTION PANEL Routine 10/10/2025 6:08 PM EST BASIC METABOLIC PANEL Routine 10/10/2025 6:08 PM EST XR LUMBAR SPINE 2-3 VIEWS Routine 10/10/2025 5:53 PM EST XR CHEST 2 VIEWS Routine 10/10/2025 5:50 PM EST documented in this encounter Results * CT Lumbar Spine w/o Contrast (10/10/2025 7:26 PM EST) Anatomical Region Laterality Modality Spine, L-spine Computed Tomogra phy 10/10/2025 7:26 PM EST Narrative 10/10/2025 7:28 PM EST [address] [address] [address] Scan Report Signed Patient: Celena Kwan MR#: [id number] : 1965 Acct:[id number] Age/Sex: 59 / F ADM Date: 10/10/25 Loc: HO.ED Attending Dr: Ordering Physician: Alejandra Muse DO Date of Service: 10/10/25 Procedure(s): CT lumbar spine wo IV con Accession Number(s): [id number] cc: Alejandra Muse DO; Name,Keyur VANG Report Number: [id number]: Total DLP = 525.00 mGy-cm Reason for [...] disc heights appear maintained. There is diffuse wocm-lg-lzndhjqi lumbar vertebral body spurring. Soft tissues: No [...] in OV> 10/10/251926 DD/ 25 TD/TT: 10/10/251925 Plant Utilities Engineer: Procedure Note Donotuseinterpreter, Image - 10/10/[address] [address] [address] Scan Report Signed Patient: Bladimir Kwan#: [id number] : 1965Acct:[id number] Age/Sex: 59 / FADM Date: 10/10/25 Loc: HO.ED Attending Dr: Ordering Physician: Alejandra Muse DO Date of Service: 10/10/25 Procedure(s): CT lumbar spine wo IV con Accession Number(s): [id number] cc: Alejandra Muse DO; Name,Keyur VANG Report Number: [id number]: Total DLP = 525.00 mGy-cm Reason for [...] disc heights appear maintained. There is diffuse piku-fm-dscfztiy lumbar vertebral body spurring. Soft tissues: No [...] in OV> 10/10/251926 DD/ 25 TD/TT: 10/10/251925 Plant Utilities Engineer: [facility] External Provider IMG CT PROCEDURES Final Result * High Sensitivity Troponin I (10/10/2025 6:08 PM EST) TROPONIN I HIGH SENSITIVITY 2.8 <3.5 - 17.0 ng/L [facility] Comment:The [place] high sens itivity Troponin-I results should beused in conjunction with other diagnostic information suchas ECG, clinical observations and information, and patientsymptoms to aid in the diagnosis of CA. 10/10/2025 6:08 PM EST 10/10/2025 6:10 PM EST us Generic External Data Provider LAB BLOOD ORDERAB LES Final Result [facility] [address] [place] [address] [phone] * (ABNORMAL) Basic Metabolic Panel (10/10/2025 6:08 PM EST) Sodium 143 135 - 145 mmol/L [facility] Potassium 4.0 3.3 - 5.1 mmol/L [facility] Chloride 112(H) 96 - 108 mmol/L [facility] Carbon Dioxide 24 22 - 29 mmol/L [facility] Anion Gap 11(L) 12 - 20 [facility] Urea Nitrogen (BUN) 18(H) 9 - 16 mg/dL [facility] Creatinine, Serum 0.74 0.5 - 1.4 mg/dL [facility] Creatinine Clr Calc Pharmacy 75.5 [facility] Comment:Provided height and weight: 152.4 cm,77.9 kg.eGFR (calculated from the MDRD study equation) and eCrCl(calculated from the Cockcroft-Gault equation) are based ondifferent parameters and may not yield comparable results.If eCrCl result is absurd, please check patient'sheight/weight. Estimated Glomerular Filt Rate >60 [facility] Comment:Chronic Kidney Disea se: Estimated GFR < 60 mL/min/1.13e4Znjxpo Kidney Disease: Estimated GFR < 15 mL/min/1.73m2 Glucose 95 60 - 115 mg/dL [facility] Calcium 9.6 8.4 - 10.2 mg/dL [facility] 10/10/2025 6:08 PM EST 10/10/2025 6:10 PM EST us Generic External Data Provider LAB BLOOD ORDERAB LES Final Result Performing Organization Address [facility] Co de Phone Number [facility] [address] [place] [phone] * (ABNORMAL) Hepatic Function Panel (10/10/2025 6:08 PM EST) Pathologist [facility] Bilirubin, Total 0.8 0.0 - 1.0 mg/dL [facility] Bilirubin, Direct 0.3 0.0 - 0.5 mg/dL [facility] Aspartate Amino Transferase 17 5 - 31 U/L [facility] Alanine Aminotransferase 18 0 - 31 U/L [facility] Total Protein 7.6 6.5 - 8.0 g/dL [facility] Albumin Level 4.6 3.5 - 5.0 g/dL [facility] Alkaline Phosphatase 118(H) 39 - 117 U/L [facility] 10/10/2025 6:08 PM EST 10/10/2025 6:10 PM EST Generic External Data Provider LAB BLOOD ORDERAB LES Final Result Performing Organization Address [facility] de Phone Number [facility] [address] [place] [phone] * CBC auto differential (10/10/2025 6:08 PM EST) Pathologist [facility] White Blood Count 8.2 4.8 - 10.8 X10*3/uL [facility] Red Blood Count 4.25 4.20 - 5.50 X10*6/uL [facility] Hemoglobin 12.1 12.0 - 16.0 g/dl [facility] Hematocrit 38.0 37.0 - 47.0 % [facility] Mean Corpuscular Volume 89.4 80.0 - 98.0 fL [facility] Mean Corpuscular Hemoglobin 28.5 27.0 - 33.0 pg [facility] Mean Corpuscular HGB Conc 31.8 31.0 - 35.0 g/dl [facility] Red Cell Distribution Width 12.8 11.0 - 16.0 % [facility] Platelet Count 248 160 - 400 X10*3/uL [facility] Mean Platelet Volume 11.7 9.4 - 12.3 fL [facility] Neutrophils Percent Auto 57.8 45 - 73 % [facility] Imm Gran Pct Auto 0.2 0.0 - 0.4 % [facility] Lymphocytes Percent Auto 33.2 20 - 40 % [facility] Monocytes Percent Auto 6.1 2 - 11 % [facility] Eosinophils Percent Auto 2.2 0 - 4 % [facility] Basophils Percent Auto 0.5 0 - 2 % [facility] NRBC Pct Auto 0.0 0.0 - 0.2 /100WBC [facility] Neutrophils Absolute Auto 4.7 2.0 - 8.3 x10*3/uL [facility] Imm Gran Abs Auto 0.02 0.00 - 0.03 X10*3/uL [facility] Lymphocytes Absolute Auto 2.7 1.2 - 4.9 X10*3/uL [facility] Monocytes Absolute Auto 0.5 0.1 - 1.2 X10*3/uL [facility] Eosinophils Absolute Auto 0.2 0.0 - 0.4 X10*3/uL [facility] Basophils Absolute Auto 0.0 0.0 - 0.2 X10*3/uL [facility] NRBC Abs Auto 0.000 0.0 - 0.012 X10*3/uL [facility] 10/10/2025 6:08 PM EST 10/10/2025 6:10 PM EST us Generic External Data Provider LAB BLOOD ORDERAB LES Final Result [facility] [address] [place] [phone] * XR Lumbar Spine 2-3 Views (10/10/2025 5:53 PM EST) Anatomical Region Laterality Modality Spine, L-spine Radiographic Nanda ging 10/10/2025 5:53 PM EST Narrative 10/10/2025 5:55 PM EST [address] [address] XRay Report Signed Patient: Celena Kwan MR#: [id number] : 1965 Acct:[id number] Age/Sex: 59 / F ADM Date: 10/10/25 Loc: HO.ED Attending Dr: Ordering Physician: Yadira Mederos Date of Service: 10/10/25 Procedure(s): XR lumbar spine 2-3V Accession Number(s): [id number] cc: Keyur Crawford MD; Yadira Mederos Reason [...] signed by Jonny Maynard MD in OV> 10/10/25 175 DD/ 52 TD/TT: 10/10/251752 Plant Utilities Engineer: Procedure Note Donotuseinterpreter, Image - 10/10/[address] [address] XRay Report Signed Patient: Matthew KwanR#: [id number] : 1965Acct:[id number] Age/Sex: 59 / FADM Date: 10/10/25 Loc: HO.ED Attending Dr: Ordering Physician: Yadira Mederos Date of Service: 10/10/25 Procedure(s): XR lumbar spine 2-3V Accession Number(s): [id number] cc: Keyur Crawford MD; Yadira Mederos Reason [...] in OV> 10/10/251753 DD/ 52 TD/TT: 10/10/251752 Plant Utilities Engineer: [facility] External Provider IMG XR PROCEDURES Final Result * XR Chest 2 Views (10/10/2025 5:50 PM EST) Anatomical Region Laterality Modality Chest Radiographic Nanda ging 10/10/2025 5:50 PM EST Narrative 10/10/2025 5:51 PM EST [address] [address] XRay Report Signed Patient: Celena Kwan MR#: [id number] : 1965 Acct:[id number] Age/Sex: 59 / F ADM Date: 10/10/25 Loc: HO.ED Attending Dr: Ordering Physician: Yadira Mederos Date of Service: 10/10/25 Procedure(s): XR chest 2V Accession Number(s): [id number] cc: Keyur Crawford MD; Yadira Mederos Reason [...] in OV> 10/10/251750 DD/ 49 TD/TT: 10/10/251749 Plant Utilities Engineer: Procedure Note Donotuseinterpreter, Image - 10/10/2025 [place] [address] XRay Report Signed Patient: Bladimir Kwan#: [id number] : 1965Acct:[id number] Age/Sex: 59 / FADM Date: 10/10/25 Loc: HO.ED Attending Dr: Ordering Physician: Yadira Mederos Date of Service: 10/10/25 Procedure(s): XR chest 2V Accession Number(s): [id number] cc: Keyur Crawford MD; Yadira Mederos Reason [...] in OV> 10/10/251750 DD/ 49 TD/TT: 10/10/251749 Plant Utilities Engineer: [facility] External Provider IMG XR PROCEDURES Final Result documented in this encounter Visit Diagnoses Not on filedocumented in this encounter Additional Health Concerns Assessment Noted Time PHQ-9 Depression Total Score: 0 07/08/20 25 10:46 AM EDT documented as of this encounter Care Teams Financial Service Professional Relationship Specialty Start Date End Date Name, MD Keyur [address] [place] [address] PCP - General Family Medicine 01/04/16 documented as of this encounter
--- OUTSIDE RECORDS SUMMARY | 2025-10-10 20:16 | XMS_ITS | Encounter Summary ---
Author Organization [facility] Address [address] [place] [phone] Phone Care Team Providers Care Civil Engineering Drafter Name Role Phone Name, Keyur VANG Primary Care Provider [phone] Encounter Details Date Type Department Care Team (Late st Contact Info) Description 04/15/2024 Procedure Pass [employer], Ct Scan - [address] [address] Social History Tobacco Use Types Packs/Day Years [...] Don't know 04/15/2024 3: 54 PM EDT documented as of this encounter Functional Status * Calculated C-SSRS Risk Score (Lifetime/Recent) Answer Date of Assessment Author No Risk Indicated 04/15/2024 3:08 PM EDT Cassandra Moore RN * [place] Suicide Severity Rating Scale (Screener/Recent Self-Report) Question Answer Date of Assessment Author 1. Wish to be (Past 1 Month) No 024 3:08 PM EDT Cassandra Moore RN 2. Non-Specific Active Suici matthew Thoughts (Past 1 Month) No 04/15/2024 3:08 PM EDT Cassandra Moore RN 6. Suicidal Behavior (Lifetime) No 4 3:08 PM EDT Cassandra Moore RN documented as of this encounter Plan of Treatment Not on file documented as of this encounter Visit Diagnoses Not on filedocumented in this encounter Care Teams Civil Engineering Drafter Relationship Specialty Start Date End Date Name, MD Keyur [address] [place] [address] PCP - General Internal Medicine 04/15/24 documented as of this encounter Additional Source Comments The information contained in this document represents components of the legal health record. It is not the complete legal health record.[facility]
--- OUTSIDE RECORDS SUMMARY | 2025-10-10 20:16 | XMS_ITS | Encounter Summary ---
Author Organization [employer] Address [address] [place] [address] [address] [place] [address] Care Team Providers Care Assistant Quality Manager Name Role Phone Name, Keyur VANG Primary Care Provider [phone] Encounter Details Date Type Department Care Team (Late Contact Info) Description 04/21/[address] [facility] [address] [place], [place] [phone] Name, MD Keyur [address] [place], [place] [phone] Social History Tobacco Use Types Packs/Day Years [...] Description 03/27/2026 12:45 PM EDT Office Visit [facility] [address] [place], [place] [phone] Jammie Ibrahim [address] [place], [place] [phone] documented as of this encounter Procedures Procedure [...] on filedocumented in this encounter Care Teams Assistant Quality Manager Relationship Specialty Start Date End Date Name, MD Keyur [address] [place] [address] PCP - General Family Medicine 01/04/16 documented as of this encounter
== END 2025-10-10 16:52 | disposition home or self-care (01) ==
LOC: HO.HGI 15:55
PROVIDERS: PCP Internal Medicine Geriatric Medicine; Visit Provider Nurse Practitioner Family
DX: R14.0 Abdominal distension (gaseous) (principal); R06.02 Shortness of breath; M54.50 Low back pain, unspecified; R60.0 Localized edema; R07.89 Other chest pain
CPT/HCPCS: 99214

== ENCOUNTER 2025-10-10 16:40 | Emergency (ER) | payer MEDICAID, SELFPAY ==
--- NOTE | ~2025-10-10 | CT_ITS ---
CLINICAL HISTORY: back trauma Exam: Nonenhanced CT lumbar spine. Comparison: Same-day lumbar radiographs. Findings: Osseous structures: Lumbar vertebral heights and alignment are maintained. No lumbar vertebral fractures or traumatic malalignment. There is transitional anatomy with presumed partial lumbarization of the S1. 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 There is disc space narrowing and vacuum phenomenon at L5-S1. Remaining intervertebral disc heights appear maintained. There is diffuse cmzu-ah-zmohqoun lumbar vertebral body spurring. Soft tissues: No gross abnormal epidural or paraspinal soft tissues appreciated. There may be some mild disc bulging L2-S1, without definitive significant central canal stenoses. Visualized visceral structures reveal no acute abnormalities. Impression: 1. No lumbar vertebral fractures or traumatic malalignment. 2. Transitional anatomy and degenerative changes as described above. This document has been electronically signed by: Jonny Maynard MD on 10/10/2025 19:26:41
--- NOTE | ~2025-10-10 | XR_ITS ---
CLINICAL HISTORY: pain s p fall 3 views lumbar spine Comparison: None Findings: There appears to be transitional anatomy with partial lumbarization of the S1. 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 No fractures or dislocations. Normal vertebral body alignment. There is diffuse mild lumbar vertebral body spurring. There is disc space narrowing, most significant at L5-S1 level. There is bilateral facet arthropathy, more significant L4-S1. Impression: 1. Transitional anatomy and lumbar degenerative changes as described above. This document has been electronically signed by: Jonny Maynard MD on 10/10/2025 17:53:27
--- NOTE | ~2025-10-10 | XR_ITS ---
CLINICAL HISTORY: pain 2 view chest x-ray. Comparison: 03/17/2024 Findings: No consolidation or effusion. Cardiac and mediastinal contours are stable. Bones unremarkable. Impression: 1. No acute pulmonary disease. This document has been electronically signed by: Jonny Maynard MD on 10/10/2025 17:50:20
[2025-10-10 16:45] VITALS: BP 142/67; PULSE 69; RESP 16; TEMP 36.4; O2SAT 97; BMI 33.5
--- NOTE | 2025-10-10 16:49 | ED.GENADULT ---
HPI - General Adult General Chief complaint: Fall Stated complaint: fall yesterday Time Seen by Provider: 10/10/25 18:25 Source: patient Mode of arrival: ambulatory Limitations: no limitations History of Present Illness ED Provider: Dr. Muse [facility] narrative: 59-year-old female presented hospital today for lower back injury. Patient stated that the chair broke underneath her when she was in [place]. She fell backwards and injured her low back. She denies any saddle paresthesia denies any numbness or tingling down her legs. Patient denies any urinary retention or bowel incontinence. Patient does have history of lumbar disc herniation surgery in the past. Related Data Home Medications ?Medication ?Instructions ?Recorded ?Confirmed diclofenac sodium 75 mg 75 mg PO BID PRN pain 09/17/24 tablet,delayed release fluticasone propionate 50 1 spray intranasal QAM 09/17/24 mcg/actuation nasal spray,suspension diclofenac sodium 1 % topical gel 2 g topical TID PRN pain 02/28/25 lidocaine 5 % topical patch patch topical 02/28/25 melatonin 5 mg tablet mg PO 03/25/25 bupropion HCl 300 mg 24 hr tablet, 300 mg PO DAILY 10/10/25 extended release trazodone 50 mg tablet 50 mg PO BEDTIME PRN insomnia 10/10/25 Previous Rx's ?Medication ?Instructions ?Recorded cyclobenzaprine 5 mg tablet 5 mg PO TID PRN muscle spasm #20 10/10/25 tabs Allergies Allergy/AdvReac Type Severity Reaction Status Date / Time No Known Allergies Allergy Verified 10/10/25 17:03 Review of Systems Review of Systems: Pertinent review of systems as mentioned in HPI. All other system otherwise negative. [facility] Past Medical History [facility] Narrative: Medical history as mentioned in HPI Medical History Arthritis of left knee Patellofemoral syndrome, left Surgical History History of H/O breast biopsy History of hernia surgery Social History Social History Alcohol intake: never Smoked in Last 30 Days: No Use of substances other than those prescribed or required for medical reasons: No Advance Directives: No Advance Directives Information Provided: No Current occupational status: employed Current occupation: right handed Physical Exam ED Exam Exam: General: Pleasant, no distress, interacting appropriately Head: Normacephalic, atraumatic ENT: oral mucosa moist, neck supple, no tracheal deviation Cardiovascular: regular rate, regular rhythm, no murmurs, rubbing, gallops, no chest wall tenderness Respiratory: CTAB, no wheeze, rales, rhonchi Gastrointestinal: Soft, non distended, non tender, non guarding Extremities: Bruising of the right lower extremity, lumbar midline back pain on palpation Neurological: Awake and alert, no facial droop noted Skin: Warm and dry Psychiatric: Appropriate mood and thoughts Vital Signs: Vital Signs - 24 hr 10/10/25 16:45 10/10/25 17:59 10/10/25 19:58 Temperature 97.5 F 97.8 F 97.6 F Pulse Rate 69 61 76 Respiratory Rate 16 16 17 Blood Pressure 142/67 H 138/72 148/88 H Pulse Oximetry 97 99 96 Oxygen Delivery Method Room Air Room Air Room Air BMI result Body Mass Index 33.5 Course Course Course Narrative: This is an RME: Additional HPI, ROS, PE not included below will be deferred to primary provider. RME assessment and note performed by: Yadira Mederos PA-C This is a 59-year-old Turkmen-speaking female who presents emergency department with concerns of right calf pain as well as left rib pain. Patient recently traveled back from [place] today. Last night she was sitting on a chair and the chair broke and she went straight down. Part of the chair hit her left low back. She also believes that she hit her right leg. She is endorsing chest pain with deep inspiration, and with speaking. Reports that she had a herniated disc surgery years ago. She also reports that she has had some chest pain, she is unsure if this is caused by her crying excessively due to the pain. Plan: Xrays, labs, EKG, further ER evaluation needed. Medications Administered Discontinued Medications Generic Name Dose Route Start Last Admin Trade Name Morganq PRN Reason Stop Dose Admin Acetaminophen 975 mg 10/10/25 18:52 10/10/25 19:31 Acetaminophen 325 Mg Tablet PO 10/10/25 18:53 975 mg ONCE ONE Administration Lidocaine 1 patch 10/10/25 18:52 10/10/25 19:32 Lidocaine 4 % Patch Adh..Patch TRANSDERMA 10/10/25 18:53 1 patch ONCE ONE Administration Protocol Medical Decision Making Medical Decision Making [facility] Narrative: This is a 59-year-old female presented hospital today for low back pain after a fall. This occurred in [place]. Patient has not taken any medicine prior to arrival here. We will plan to give patient a dose of Tylenol. Given her history of back surgeries in the past. CT imaging will be performed. Patient's lumbar x-ray is negative. She has no red flag symptoms at this time for back pain. 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 Muscle relaxant will be prescribed to the patient. Patient agrees and understands this plan all questions were addressed. Differential Diagnosis Differential Diagnoses: The differential diagnosis associated with the presentation includes Lumbar fracture, back pain, lumbar strain Lab Data [facility] Lab Attestation statement: I reviewed the patient's lab results. 10/10/25 18:08 10/10/25 18:08 Labs: Lab Results 10/10/25 Range/Units 18:08 WBC 8.2 (4.8-10.8) X10*3/uL RBC 4.25 (4.20-5.50) X10*6/uL Hgb 12.1 (12.0-16.0) g/dl Hct 38.0 (37.0-47.0) % MCV 89.4 (80.0-98.0) fL MCH 28.5 (27.0-33.0) pg MCHC 31.8 (31.0-35.0) g/dl RDW 12.8 (11.0-16.0) % Plt Count 248 (160-400) X10*3/uL MPV 11.7 (9.4-12.3) fL Immature Gran % (Auto) 0.2 (0.0-0.4) % Neut % (Auto) 57.8 (45-73) % Lymph % (Auto) 33.2 (20-40) % [place] % (Auto) 6.1 (2-11) % Eos % (Auto) 2.2 (0-4) % Baso % (Auto) 0.5 (0-2) % Lymph # (Auto) 2.7 (1.2-4.9) X10*3/uL [place] # (Auto) 0.5 (0.1-1.2) X10*3/uL Eos # (Auto) 0.2 (0.0-0.4) X10*3/uL Baso # (Auto) 0.0 (0.0-0.2) X10*3/uL Abs Immat Gran (auto) 0.02 (0.00-0.03) X10*3/uL Absolute Neuts (auto) 4.7 (2.0-8.3) x10*3/uL Absolute Nucleated RBC 0.000 (0.0-0.012) X10*3/uL Nucleated RBC % (auto) 0.0 (0.0-0.2) /100WBC Sodium 143 (135-145) mmol/L Potassium 4.0 (3.3-5.1) mmol/L Chloride 112 H (96-108) mmol/L Carbon Dioxide 24 (22-29) mmol/L Anion Gap 11 L (12-20) BUN 18 H (9-16) mg/dL Creatinine 0.74 (0.5-1.4) mg/dL Estim Creat Clear Calc 75.5 Estimated GFR > 60 Random Glucose 95 (60-115) mg/dL Calcium 9.6 (8.4-10.2) mg/dL Total Bilirubin 0.8 (0.0-1.0) mg/dL Direct Bilirubin 0.3 (0.0-0.5) mg/dL AST 17 (5-31) U/L ALT 18 (0-31) U/L Alkaline Phosphatase 118 H (39-117) U/L Troponin I High Sens 2.8 (<3.5-17.0) ng/L Total Protein 7.6 (6.5-8.0) g/dL Albumin 4.6 (3.5-5.0) g/dL Independent Interpretation I performed an independent interpretation of an: Plain X-Ray and CT Scan Radiology Impression Discussion of test interpretation with radiology: I have reviewed the radiologist's reading. Discharge Plan Discharge Clinical Impression: Back pain Patient Disposition: Home, Self-Care Instructions: Back Pain (ED) Additional Instructions: Take 1000mg tylenol every 8 hours. Prescriptions: New cyclobenzaprine 5 mg tablet 5 mg PO TID PRN (Reason: muscle spasm) Qty: 20 0RF No Action lidocaine 5 % adhesive patch,medicated topical diclofenac sodium 1 % gel 2 g topical TID PRN (Reason: pain) trazodone 50 mg tablet 50 mg PO BEDTIME PRN (Reason: insomnia) bupropion HCl 300 mg tablet extended release 24 hr 300 mg PO DAILY diclofenac sodium 75 mg tablet,delayed release (DR/EC) 75 mg PO BID PRN (Reason: pain) fluticasone propionate 50 mcg/actuation spray,suspension 1 spray intranasal QAM melatonin 5 mg tablet PO Print Language: Turkmen
--- NOTE | 2025-10-10 17:04 | ECG_ITS ---
Test Reason : chest pain Blood Pressure : */* mmHG Vent. Rate : 72 BPM Atrial Rate : 72 BPM P-R Int : 164 ms QRS Dur : 92 ms QT Int : 382 ms P-R-T Axes : 49 34 26 degrees QTcB Int : 418 ms Normal sinus rhythm Normal ECG When compared with ECG of 12-Jul-2023 13:34, No significant change was found Referred By: Yadira Mederos Electronically Signed By: Joe Moreno
[2025-10-10 17:59] VITALS: BP 138/72; PULSE 61; RESP 16; TEMP 36.6; O2SAT 99
[2025-10-10 18:11] LABS: MANUAL DIFF FLAG NO
[2025-10-10 18:19] LABS: Hematocrit 38.0 % (37.0-47.0); Hemoglobin 12.1 g/dl (12.0-16.0); Imm Gran Abs Auto 0.02 X10*3/uL (0.00-0.03); Imm Gran Pct Auto 0.2 % (0.0-0.4); Lymphocytes Absolute Auto 2.7 X10*3/uL (1.2-4.9); Mean Corpuscular HGB Conc 31.8 g/dl (31.0-35.0); Mean Corpuscular Hemoglobin 28.5 pg (27.0-33.0); Mean Corpuscular Volume 89.4 fL (80.0-98.0); NRBC Abs Auto 0.000 X10*3/uL (0.0-0.012); NRBC Pct Auto 0.0 /100WBC (0.0-0.2); Platelet Count 248 X10*3/uL (160-400); Red Blood Count 4.25 X10*6/uL (4.20-5.50); White Blood Count 8.2 X10*3/uL (4.8-10.8)
[2025-10-10 18:28] LABS: Alanine Aminotransferase 18 U/L (0-31); Albumin Level 4.6 g/dL (3.5-5.0); Alkaline Phosphatase 118 U/L (39-117); Anion Gap 11 (12-20); Aspartate Amino Transferase 17 U/L (5-31); Blood Urea Nitrogen 18 mg/dL (9-16); Calcium 9.6 mg/dL (8.4-10.2); Carbon Dioxide 24 mmol/L (22-29); Chloride 112 mmol/L (96-108); Creatinine Clr Calc Pharmacy 75.5; Estimated Glomerular Filt Rate > 60; Potassium 4.0 mmol/L (3.3-5.1); Sodium 143 mmol/L (135-145); Total Protein 7.6 g/dL (6.5-8.0)
[2025-10-10 18:35] LABS: Troponin-I High Sensitivity 2.8 ng/L (<3.5-17.0)
--- NOTE | 2025-10-10 19:05 | PC.NURSE ---
Report taken from Reba RN assumed care of pt at this time. Pt A&Ox3 skin pwd respirations even unlabored. Endorsing lower left back pain after fall today. Medicated per MAR, awaiting provider reeval, aware of plan of care.
[2025-10-10] MEDS: Lidocaine 4 % Patch ADH..PATCH 1 PATCH TRANSDERMA (19:32)
[2025-10-10 19:58] VITALS: BP 148/88; PULSE 76; RESP 17; TEMP 36.4; O2SAT 96
[2025-10-10 20:58] VITALS: BP 148/88; PULSE 76; RESP 17; TEMP 36.4; O2SAT 96
== END 2025-10-10 20:59 | disposition home or self-care (01) ==
PROVIDERS: Physician Assistant Medical; Emergency Provider Student in an Organized Health Care Education/Training Program; PCP Internal Medicine Geriatric Medicine
DX: M54.50 Low back pain, unspecified (principal); R07.9 Chest pain, unspecified; Z91.81 History of falling; R14.0 Abdominal distension (gaseous); R06.02 Shortness of breath; R60.0 Localized edema
CPT/HCPCS: 36415; 71046; 72100; 72131; 80048; 80076; 84484; 85025; 93005; 99212; 99284; 99285

== ENCOUNTER → 2025-10-10 17:04 | Outpatient (BNV) | payer MEDICAID, SELFPAY | PROVIDERS: Emergency Provider Student in an Organized Health Care Education/Training Program; PCP Internal Medicine Geriatric Medicine; Visit Provider Internal Medicine Cardiovascular Disease | DX: R07.9 Chest pain, unspecified (principal) | CPT/HCPCS: 93010 ==

== ENCOUNTER → 2025-10-10 17:04 | Outpatient (BNV) | payer MEDICAID, SELFPAY | PROVIDERS: PCP Internal Medicine Geriatric Medicine; Visit Provider Radiology Diagnostic Radiology | DX: M54.50 Low back pain, unspecified (principal); S39.92XA Unspecified injury of lower back, initial encounter; R07.89 Other chest pain | CPT/HCPCS: 71046; 72100; 72131 ==